=== PATIENT | male | born 1980 | race African-American/Black ===

== ENCOUNTER 2023-09-10 08:52 | Outpatient (OUT) | payer OTHER, SELFPAY ==
[2023-09-10 09:23] LABS: White Blood Count 6.5 10^3/uL (4.0-11.0)
[2023-09-10 09:24] LABS: Basophils Percent Auto 0.5 % (0.2-2.0); Eosinophils Absolute Auto 0.1 10^3/uL (0.0-0.7); Eosinophils Percent Auto 1.1 % (0.9-7.0); Hematocrit 45.1 % (42.0-54.0); Hemoglobin 15.7 g/dL (14.0-18.0); Immature Granulocytes Abs Auto 0.01 10^3/uL (0.00-0.03); Immature Granulocytes Pct Auto 0.2 % (0.0-0.5); Lymphocytes Absolute Auto 2.5 10^3/uL (1.2-3.8); Lymphocytes Percent Auto 38.9 % (20.5-60.0); Mean Corpuscular HGB Conc 34.8 g/dL (29.9-35.2); Mean Corpuscular Hemoglobin 27.2 pg (25.9-34.0); Mean Platelet Volume 11.1 fL (9.5-13.5); Monocytes Absolute Auto 0.8 10^3/uL (0.3-0.8); Monocytes Percent Auto 11.6 % (1.7-12.0); Neutrophils Absolute Auto 3.1 10^3/uL (1.4-6.5); Neutrophils Percent Auto 47.7 % (43.0-75.0); Platelet Count 206 10^3/uL (150-450); Red Blood Count 5.78 10^6/uL (4.70-6.10); Red Cell Distribution Width 16.5 % (11.0-15.0)
[2023-09-11 04:08] LABS: Testosterone 436 ng/dL (264-916)
== END 2023-09-10 08:53 | disposition home or self-care (01) ==
LOC: LAB 08:55
PROVIDERS: PCP Nurse Practitioner Family; Visit Provider Urology
DX: E29.1 Testicular hypofunction (principal)
CPT/HCPCS: 36415; 84403; 85025

== ENCOUNTER 2024-03-01 08:52 | Outpatient (OUT) | payer OTHER, SELFPAY ==
--- OUTSIDE RECORDS SUMMARY | 2024-03-01 08:56 | XMS_ITS | CCD ---
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 Name Role Phone ORION, DR HERNANDEZ Attending Unavailable SEARS, DR HERNANDEZ Consulting Unavailable SEARS, DR HERNANDEZ Admitting Unavailable DAXA MENDEZ Primary Care Unavailable FARHAT LEONARD Primary Care Physician [phone] CAROLEE IRELAND Attending Unavailable SEARS, Zhao Barr Attending Unavailable SEARS, Zhao Barr Attending Unavailable SEARS, Zhao Barr Attending Unavailable SEARS, Zhao Barr Attending Unavailable SEARS, Zhao Barr Attending Unavailable SEARS, Zhao Barr Attending Unavailable SEARS, Zhao Barr Attending Unavailable SEARS, Zhao Barr Attending Unavailable SEARS, Zhao Barr Attending Unavailable SEARS, Zhoa R Attending Unavailable SEARS, Zhao Barr Attending Unavailable SEARS, Zhao Barr Attending Unavailable Galea, Cindy Calderon Attending Unavailable DEMETRIS TINEO Attending Unavailable Allergies Allergy Classification Reported Allergen(s) Allergy Type Date of Onset Reaction(s) Facility Unclassified (1 source) No Known Medication Allergies; Translations: [No Known Medication Allergies] Propensity to adverse reactions (disorder) [facility] Repository Medications Current Medications Medication Drug Class(es) Dates Sig (Normalized) Sig (Original) amLODIPine 10 mg oral tablet (7 sources) Dihydropyridine Calcium Channel Ena Start: 04-14-2019 take 1 tablet by mouth once daily amLODIPine 10 mg Tab 10 mg = 1 tab(s), Oral, Daily Start Date: 04/14/19 Status: Ordered amLODIPine 10 mg / atorvastatin 20 mg oral tablet (18 sources) Dihydropyridine Calcium Channel Ena, HMG-CoA Reductase Inhibitor Start: 07-03-2022 take 1 tablet by mouth once daily amlodipine-ator vastatin 10 mg-20 mg oral tablet tab(s), Oral, Daily, Refill(s) 0 Start Date: 07/03/22 Status: Ordered tadalafil 20 mg oral tablet (20 sources) Phosphodiesterase 5 Inhibitor Start: 07-03-2022 Cialis 20 mg Tab Refills(s) 0 Start Date: 07/03/22 Status: Ordered Start: 01-16-2022 End: 05-16-2022 take 1 tablet by mouth every hour as needed Cialis 20 mg Tab 20 mg = 1 tab(s), Oral, As Directed, Take one tab prn one hour prior to sexual intercourse, X 30 day(s), # 30 tab(s), Refills(s) 3, Pharmacy: [facility] [id number], 190, cm, 01/16/22 15:25:00 EDT, Height/Length Dosing, 110, kg, 01/16/22 15:25:00 ED... Start Date: 01/16/22 Stop Date: 05/16/22 Status: Ordered Start: 01-03-2021 take 1 tablet by walter th every hour as needed Cialis 20 mg Tab 20 mg = 1 tab(s), Oral, As Directed, Take one tab prn one hour prior to sexual intercourse, # 30 tab(s), Refills(s) 3, Pharmacy: [facility] [id number], 190, cm, 01/03/21 15:37:00 EDT, Height/Length Dosing, 110, kg, 01/03/21 15:37:00 EDT, Weight Dosing Start Date: 01/03/21 Status: Ordered testosterone cypionate 200 mg/mL IM Yvonne (20 sources) Start: 11-14-2023 testosterone c ypionate 200 mg/mL IM Yvonne 350 mg, IntraMuscular, q4wk, # 10 mL, Refills(s) 3, Pharmacy: [id number], 190, cm, 09/24/23 11:25:00 EST, Height/Length Dosing, 105.2, kg, 09/24/23 11:25:00 EST, Weight Dosing Start Date: 11/14/23 Status: Ordered Start: 04-04-2023 testosterone c ypionate 200 mg/mL IM Yvonne 350 mg, IntraMuscular, q4wk, # 10 mL, Refills(s) 3, Pharmacy: [id number], 190, cm, 07/03/22 15:34:00 EST, Height/Length Dosing, 110.5, kg, 07/03/22 15:34:00 EST, Weight Dosing Start Date: 04/04/23 Status: Ordered Start: 09-25-2022 testosterone c ypionate 200 mg/mL IM Yvonne 350 mg, IntraMuscular, q4wk, # 10 mL, Refills(s) 3, Pharmacy: [facility] #[id number], 190, cm, 07/03/22 15:34:00 EST, Height/Length Dosing, 110.5, kg, 07/03/22 15:34:00 EST, Weight Dosing Start Date: 09/25/22 Status: Ordered Start: 05-04-2022 testosterone c ypionate 200 mg/mL IM Yvonne 300 mg, IntraMuscular, q4wk, # 10 mL, Refills(s) 3, Pharmacy: [facility] #[id number], 190, cm, 01/16/22 15:25:00 EDT, Height/Length Dosing, 110, kg, 01/16/22 15:25:00 EDT, Weight Dosing Start Date: 05/04/22 Status: Ordered Vitamin D (20 sources) Start: 01-03-2021 Vitamin D Inte rnational_Unit, Oral, Daily, Refills(s) 0 Start Date: 01/03/21 Status: Ordered Start: 12-06-2020 Vitamin D Inte rnational_Unit, Oral, Daily, Refills(s) 0 Start Date: 12/06/20 Status: Ordered Problems Problem Classification Problem Date Documented Da te Episodic/Chronic Alcohol-related disorders (20 sources) Alcoholism 03-15-2019 Chronic Bacterial infection; unspecified site (20 sources) Chlamydial infection 03-15-2019 Episodic Essential hypertension (20 sources) Hypertensive disorder 03-15-2019 Chronic Genitourinary symptoms and ill-defined conditions (20 sources) Nocturia 03-15-2019 Episodic Other endocrine disorders (4 sources) Testicular hypofunction; Translations: [TESTICULAR HYPOFUNCTION] Onset: 06-18-2021 Chronic Other endocrine disorders (20 sources) Testicular hypofunction; Translations: [Testicular hypofunction] Onset: 11-21-2021 Chronic Other endocrine disorders (20 sources) Male hypogonadism 03-15-2019 Chronic Other male genital disorders (20 sources) 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 Other male genital disorders (4 sources) Male erectile dysfunction, unspecified; Translations: [Erectile dysfunction] Onset: 07-03-2022 Chronic Other nutritional; endocrine; and metabolic disorders (20 sources) Body mass index 30+ - obesity 09-15-2020 Chronic Other screening for suspected conditions (not mental disorders or infectious disease) (1 source) Encounter for screening for malignant neoplasm of prostate; Translations: [Screening for malignant neoplasm done] Onset: 09-24-2023 Episodic Substance-related disorders (20 sources) Smoker 03-15-2019 Chronic Unclassified (5 sources) Patient encounter status 09-24-2023 Results Test Name Value Interpretation Reference Range Facil ity Ambulatory Visit Summaryon 0 12-18-2023 Ambulatory Visit Summary ANA LYONS :1980 Visit Date:12/18/2023 Ambulatory Visit Instructions Your Diagnosis Hypogonadism male Your Care Team Attending Physician - Cindy Adams Primary Care Physician - FARHAT LEONARD CNP This Is Your Medications List amlodipine-atorvasta tin (amlodipine-atorvast atin 10 mg-20 mg oral tablet) tadalafil (Cialis 20 mg Tab) testosterone (testosterone cypionate 200 mg/mL IM Yvonne) What to do next Scheduled Follow-Up Appointments Sunday. 2023 3:00 PM EDT With: Where: [facility] [address] [place] [address]- \.br\ Medications\.br\ What How Much When Instructions\.br\ Unchanged amlodipine-atorvast atin (amlodipine-atorvas tatin 10 mg-20 mg oral tablet) By Mouth Every day\.br\ Unchanged tadalafil (Cialis 20 mg Tab)\.br\ Unchanged testosterone (testosterone cypionate 200 mg/ mL IM Yvonne) 350 Milligram Intramuscular Every 4 weeks\.br\ Medications and Immunizations Administered\.br\ Given\.br\ Depo-Testosterone 200 mg/mL intramuscular solution, 400 mg, IntraMuscular. For: Hypogonadism male\.br\ Allergies\.br\ No Known Medication Allergies\.br\ Problems\.br\ Ongoing - Any problem that you are currently receiving treatment for.\.br\ Alcoholism\.br\ BMI 30.0-30.9,adult\.br \ Chlamydia\.br\ Erectile dysfunction\.br\ Hypertension\.br\ Hypogonadism male\.br\ Nocturia\.br\ Screening PSA (prostate specific antigen)\.br\ Smoker\.br\ Patient Survey\.br\ You may receive a survey via text or e-mail asking about your office visit. Please share your experience with us by completing your survey. We appreciate your feedback and thank you for choosing us for your care.\.br\ \.br\ [facility] Ambulatory Visit Summaryon 0 11-20-2023 Ambulatory Visit Summary ANA LYONS :1980 Visit Date:11/20/2023 Ambulatory Visit Instructions Your Diagnosis Hypogonadism male Your Care Team Attending Physician - ORION HERNANDEZ, Zhao Barr Primary Care Physician - FARHAT LEONARD CNP This Is Your Medications List amlodipine-atorvasta tin (amlodipine-atorvast atin 10 mg-20 mg oral tablet) tadalafil (Cialis 20 mg Tab) testosterone (testosterone cypionate 200 mg/mL IM Yvonne) What to do next Scheduled Follow-Up Appointments Sunday 3:00 PM EDT With: Where: [facility] [address] [place] [address]- \.br\ Medications\.br\ What How Much When Instructions\.br\ Unchanged amlodipine-atorvast atin (amlodipine-atorvas tatin 10 mg-20 mg oral tablet) By Mouth Every day\.br\ Unchanged tadalafil (Cialis 20 mg Tab)\.br\ Unchanged testosterone (testosterone cypionate 200 mg/ mL IM Yvonne) 350 Milligram Intramuscular Every 4 weeks\.br\ Medications and Immunizations Administered\.br\ Given\.br\ Depo-Testosterone 200 mg/mL intramuscular solution, 400 mg, IntraMuscular. For: Hypogonadism male\.br\ Allergies\.br\ No Known Medication Allergies\.br\ Problems\.br\ Ongoing - Any problem that you are currently receiving treatment for.\.br\ Alcoholism\.br\ BMI 30.0-30.9,adult\.br \ Chlamydia\.br\ Erectile dysfunction\.br\ Hypertension\.br\ Hypogonadism male\.br\ Nocturia\.br\ Screening PSA (prostate specific antigen)\.br\ Smoker\.br\ Patient Survey\.br\ You may receive a survey via text or e-mail asking about your office visit. Please share your experience with us by completing your survey. We appreciate your feedback and thank you for choosing us for your care.\.br\ \.br\ [facility] Ambulatory Visit Summaryon 0 10-22-2023 Ambulatory Visit Summary ANA LYONS :1980 Visit Date:10/22/2023 Ambulatory Visit Instructions Your Diagnosis Hypogonadism male Your Care Team Attending Physician - ORION HERNANDEZ, Zhao Barr Primary Care Physician - FARHAT LEONARD CNP This Is Your Medications List amlodipine-atorvasta tin (amlodipine-atorvast atin 10 mg-20 mg oral tablet) tadalafil (Cialis 20 mg Tab) testosterone (testosterone cypionate 200 mg/mL IM Yvonne) What to do next Scheduled Follow-Up Appointments Sunday 3:00 PM EDT Where: [facility] Ambulatory Visit Summaryon 0 09-24-2023 Ambulatory Visit Summary ANSLEY LYONSO Patel :1980 Visit Date:09/24/2023 Ambulatory Visit Instructions Your Diagnosis Hypogonadism male Erectile dysfunction Screening PSA (prostate specific antigen) Your Care Team Attending Physician - Zhao SEARS MD Primary Care Physician - FARHAT LEONARD CNP This Is Your Medications List testosterone (testosterone cypionate 200 mg/mL IM Yvonne) Contact prescribing physician if questions or concerns amlodipine-atorvasta tin (amlodipine-atorvast atin 10 mg-20 mg oral tablet) tadalafil (Cialis 20 mg Tab) Discharge Vitals Heart Rate (Peripheral) 71 Respiratory Rate 16 Blood Pressure 137/83 Height 190 cm Height 75 in Weight 105.2 kg Weight 231.44 lb BMI 29.14 What to do next Scheduled Follow-Up Appointments Sunday 10:30 AM EST Where: [facility] Ambulatory Visit Summary ANA LYONS :1980 Visit Date:09/24/2023 Ambulatory Visit Instructions Your Diagnosis Hypogonadism male Erectile dysfunction Screening PSA (prostate specific antigen) Your Care Team Attending Physician - Zhao SEARS MD Primary Care Physician - FARHAT LEONARD CNP This Is Your Medications List testosterone (testosterone cypionate 200 mg/mL IM Yvonne) Contact prescribing physician if questions or concerns amlodipine-atorvasta tin (amlodipine-atorvast atin 10 mg-20 mg oral tablet) tadalafil (Cialis 20 mg Tab) Discharge Vitals Heart Rate (Peripheral) 71 Respiratory Rate 16 Blood Pressure 137/83 Height 190 cm Height 75 in Weight 105.2 kg Weight 231.44 lb BMI 29.14 What to do next Scheduled Follow-Up Appointments Sunday 10:30 AM EST Where: [facility] Patient Educationon 09-24-19 24 Patient Education Urology Hypogonadism, Male Male hypogonadism is a condition of having a level of testosterone that is lower than normal. Testosterone is a chemical, or hormone, that is made mainly in the testicles. In boys, testosterone is responsible for the development of male characteristics during puberty. These include: ? Making the penis bigger. ? Growing and building the muscles. ? Growing facial hair. ? Deepening the voice. In adult men, testosterone is responsible for maintaining: ? An interest in sex and the ability to have sex. ? Muscle mass. ? Sperm production. ? Red blood cell production. ? Bone strength. Testosterone also gives men energy and a sense of well-being. Testosterone normally decreases as men age and the testicles make less testosterone. Testosterone levels can vary from man to man. Not all men will have signs and symptoms of low testosterone. Weight, alcohol use, medicines, and certain medical conditions can affect a man's testosterone level. What are the causes? This condition is caused by: ? A natural decrease in testosterone that occurs as a man grows older. This is the main cause of this condition. ? Use of medicines, such as antidepressants, steroids, and opioids. ? Diseases and conditions that affect the testicles or the making of testosterone. These include: ? Injury or damage to the testicles from trauma, cancer, cancer treatment, or infection. ? Diabetes. ? Sleep apnea. ? Genetic conditions that men are born with. ? Disease of the pituitary gland. This gland is in the brain. It produces hormones. ? Obesity. ? Metabolic syndrome. This is a group of diseases that affect blood pressure, blood sugar, cholesterol, and belly fat. ? HIV or AIDS. ? Alcohol abuse. ? Kidney failure. ? Other long-term or chronic diseases. What are the signs or symptoms? Common symptoms of this condition include: ? Loss of interest in sex (low sex drive). ? Inability to have or maintain an erection (erectile dysfunction). ? Feeling tired (fatigue). ? Mood changes, like irritability or depression. ? Loss of muscle and body hair. ? Infertility. ? Large breasts. ? Weight gain (obesity). How is this diagnosed? Your health care provider can diagnose hypogonadism based on: ? Your signs and symptoms. ? A physical exam to check your testosterone levels. This includes blood tests. Testosterone levels can change throughout the day. Levels are highest in the morning. You may need to have repeat blood tests before getting a diagnosis of hypogonadism. Depending on your medical history and test results, your health care provider may also do other tests to find the cause of low testosterone. How is this treated? This condition is treated with testosterone replacement therapy. Testosterone can be given by: ? Injection or through pellets inserted under the skin. ? Gels or patches placed on the skin or in the mouth. Testosterone therapy is not for everyone. It has risks and side effects. Your health care provider will consider your medical history, your risk for prostate cancer, your age, and your symptoms before putting you on testosterone replacement therapy. Follow these instructions at home: ? Take [id number] and prescription medicines only as told by your health care provider. ? Eat foods that are high in fiber, such as beans, whole grains, and fresh fruits and vegetables. Limit foods that are high in fat and processed sugars, such as fried or sweet foods. ? If you drink alcohol: ? Limit how much you have to 0?2 drinks a day. ? Know how much alcohol is in your drink. In the [place] one drink equals one 12 oz bottle of beer (355 mL), one 5 oz glass of wine (148 mL), or one 1? oz glass of hard liquor (44 mL). ? Return to your normal activities as told by your health care provider. Ask your health care provider what activities are safe for you. ? Keep all follow-up visits. This is important. Contact a health care provider if: ? You have any of the signs or symptoms of low testosterone. ? You have any side effects from testosterone therapy. Summary ? Male hypogonadism is a condition of having a level of testosterone that is lower than normal. ? The natural drop in testosterone production that occurs with age is the most common cause of this condition. ? Low testosterone can also be caused by many diseases and conditions that affect the testicles and the making of testosterone. ? This condition is treated with testosterone replacement therapy. ? There are risks and side effects of testosterone therapy. Your health care provider will consider your age, medical history, symptoms, and risks for prostate cancer before putting you on testosterone therapy. This information is not intended to replace advice given to you by your health care provider. Make sure you discuss any questions you have with your health care provider. Document Revised: 04/14/2021 Document (more content not included)... [facility] Urology Office/Clinic Noteon 09-24-2023 Urology Office/Clinic Note Chief Complaint hypogonadism and erectile dysfunction HPI Staff 6 month with CBC and testosterone level. Previous dx of hypogonadism and erectile dysfunction. Current testosterone level drawn 09/10/23 is 436 ([phone]) and previous drawn 03/26/23 was 251. Last testosterone injection 400mg every 4 weeks. Dysuria: no Incomplete bladder emptying: no Hematuria: no Frequency: no Urgency: no Nocturia: does not get up Stream: good steady stream Leaking: no Post void dripping: no Wearing pads/ Depends: no Urge incontinence: no Stress incontinence: no Incontinence without Sensory Awareness: no Abdominal pain: no Flank pain: no Sexual complaints: no History of Present Illness Tests reviewed: reviewed UA, CBC, T level I have reviewed the previous health record information and history for this patient from Dr. Sears. I have reviewed and verified the staff HPI to be accurate for this encounter. Review of Systems PHQ Score Initial Depression Screen Score: 0 SCORE ROS - Provider Constitutional: denies weight loss, denies hot flashes. Eyes: denies eye problems. Gastrointestinal: denies nausea, denies vomiting. Cardiovascular: denies chest pain or angina. Integumentary: no dryness Musculoskeletal: denies musculoskeletal symptoms. ENMT: denies otolaryngeal symptoms. Respiratory: no shortness of breath. Heme/Lymph: denies easy bleeding tendency, denies easy bruising tendency. Psychiatric: no confusion, no anxiety. Genitourinary: See HPI. Physical Exam Vitals & Measurements HR: 71(Peripheral) RR: 16 BP: 137/83 HT: 75 in HT: 190 cm WT: 105.2 kg WT: 231.44 lb BMI: 29.14 General Appearance: alert, no distress, well nourished, well developed male. Genitourinary: normal scrotum, normal testes, normal urethra, normal epididymis, normal vas deferens/spermatic cord. Flank Pain: none. Bladder: nonpalpable. Assessment/Plan 1. Hypogonadism male (E29.1: Testicular hypofunction) Testosterone Level (250 - 827) 01/06/22 - 418.7 06/27/22 - 213 03/26/23 - 251, HGB 16.8 09/10/23 - 436, HGB 15.7, HCT 45.1 Pt has been receiving Testosterone injections IM 400mg q4wks, increased from 350mg on 04/09/23. Discussed T and Hgb levels w/ pt, has increased from prior and is wnl. UA today negative for blood and infection. States he feels his energy level is good. No indication for dosage change at this time. -Cont Testosterone 400mg IM inj q4w. Pt to call for refills, uses [facility] in [place]. -F/u with T level in 6 mos 2. Erectile dysfunction (N52.9: Male erectile dysfunction, unspecified) Cialis 20mg PRN, works well when he takes it. 3. Screening PSA (prostate specific antigen) (Z12.5: Encounter for screening for malignant neoplasm of prostate) Denies ever getting PSA checked. No PSAs found on record. No known fam hx of prostate ca. Recommended pt to get PSA checked now. If level is low, will recheck level in 2 yrs. -PSA in 6 mos Follow-up With When Contact Information ORION HERNANDEZ, Zhao Barr, URL [facility] [address], [place] [address]- [phone] Additional Instructions: 6 mos w/ T level and PSA Patient Education Hypogonadism, Male I, Shaina Sheriff, personally scribed for Dr. Sears on 09/24/2023 12:32:26. . Documentation recorded by the scribe, Shaina Sheriff, accurately reflects the services(s) I performed and decisions made by me. Authenticated by Dr. Sears on 09/24/2023 12:34:04. Problem List/Past Medical History Ongoing Alcoholism BMI 30.0-30.9,adult Chlamydia Erectile dysfunction Hypertension Hypogonadism male Nocturia Screening PSA (prostate specific antigen) Smoker Historical No qualifying data Medications amlodipine-atorvasta tin 10 mg-20 mg oral tablet, Oral, Daily Cialis 20 mg Tab testosterone cypionate 200 mg/mL IM Yvonne, 350 mg, IntraMuscular, q4wk, 3 refills Allergies No Known Medication Allergies Social History Alcohol Current, 1-2 times per month, 04/14/2019 Past, 03/15/2019 Tobacco quit 8 years ago Tobacco Use:. Never Smokeless Tobacco Use:. Cigars, 04/09/2023 Family History Alcoholism: Father. Immunizations Vaccine Date Status Comments influenza virus vaccine, inactivated - Not Given Temporary contraindication - reschedule SARS-CoV-2 mRNA (tozinameran 5y-11y) vac 07/04/2021 Recorded SARS-CoV-2 (COVID-19) mRNA BNT-162b2 vax 06/08/2021 Recorded SARS-CoV-2 mRNA (tozinameran 5y-11y) vac 06/02/2021 Recorded SARS-CoV-2 (COVID-19) mRNA BNT-162b2 vax 05/18/2021 Recorded tetanus-diphtheria toxoids 10/27/2020 Recorded Td(adult) unspecified formulation 04/05/2000 Recorded measles/mumps/rubell a virus vaccine 03/16/1994 Recorded diphtheria/pertussis , acel/tetanus adult 12/18/1985 Recorded measles/mumps/rubell a virus vaccine 06/09/1982 Recorded Lab Results Ambulatory Point of Care Results Bilirubin Urine Dipstick: Negative (09/24/23 11:18:00) Blood Urine Dip (more content not included)... [facility] Comment on above: Result Comment: Elec tronically Signed By: Zhao SEARS MD\.br\Date and Time Signed: 09/24/23 12:34 EST\.br\Electronically Co-Signed By: Shaina Sheriff\.br\Date and Time Co-Signed: 09/24/23 12:33 EST Lab Reportson 09-13-2023 Lab Reports [id number] #1.00TIFF [facility] Lab Reports [id number]# 1.00TIFF [facility] Reminderson 09-11-2023 Reminders - From: Shaina Sheriff To: [facility] - Janays Orion; Sent: 04/09/2023 17:06:50 EDT Show up: 09/09/2023 16:06:00 EST Subject: Testosterone level and CBC Reminder Message Please Remember to:_have pt get CBC and testosterone level drawn before 10am. Patient went 09/10/23 to [facility] Ambulatory Visit Summaryon 0 08-28-2023 Ambulatory Visit Summary ANA LYONS :1980 Visit Date:08/28/2023 Ambulatory Visit Instructions Your Diagnosis Hypogonadism male Your Care Team Attending Physician - Zhao SEARS MD Primary Care Physician - FARHAT LEONARD CNP This Is Your Medications List amlodipine-atorvasta tin (amlodipine-atorvast atin 10 mg-20 mg oral tablet) tadalafil (Cialis 20 mg Tab) testosterone (testosterone cypionate 200 mg/mL IM Yvonne) What to do next Scheduled Follow-Up Appointments Sunday 10:45 AM EST With: Zhao SEARS MD Where: [facility] Ambulatory Visit Summaryon 0 05-07-2023 Ambulatory Visit Summary ANA LYONS :1980 Visit Date:05/07/2023 Ambulatory Visit Instructions Your Diagnosis Erectile dysfunction Your Care Team Attending Physician - Zhao SEARS MD Primary Care Physician - FARHAT LEONARD CNP This Is Your Medications List amlodipine-atorvasta tin (amlodipine-atorvast atin 10 mg-20 mg oral tablet) tadalafil (Cialis 20 mg Tab) testosterone (testosterone cypionate 200 mg/mL IM Yvonne) What to do next Scheduled Follow-Up Appointments Sunday 3:00 PM EDT With: Where: [facility] [address] [place] [address] [place] [address]- \.br\ Medications\.br\ What How Much When Instructions\.br\ Unchanged amlodipine-atorvast atin (amlodipine-atorvas tatin 10 mg-20 mg oral tablet) By Mouth Every day\.br\ Unchanged tadalafil (Cialis 20 mg Tab)\.br\ Unchanged testosterone (testosterone cypionate 200 mg/ mL IM Yvonne) 350 Milligram Intramuscular Every 4 weeks\.br\ Medications and Immunizations Administered\.br\ Given\.br\ Depo-Testosterone 200 mg/mL intramuscular solution, 400 mg, IntraMuscular. For: Erectile dysfunction\.br\ Allergies\.br\ No Known Medication Allergies\.br\ Problems\.br\ Ongoing - Any problem that you are currently receiving treatment for.\.br\ Alcoholism\.br\ BMI 30.0-30.9,adult\.br \ Chlamydia\.br\ Erectile dysfunction\.br\ Hypertension\.br\ Hypogonadism male\.br\ Nocturia\.br\ Smoker\.br\ \.br\ [facility] Ambulatory Visit Summaryon 0 04-09-2023 Ambulatory Visit Summary ANA LYONS :1980 Visit Date:04/09/2023 Ambulatory Visit Instructions Your Diagnosis Hypogonadism male, Hypogonadism male Erectile dysfunction Tests Performed Urnls Dip Stick Auto w/o Microscopy POC 56046 Your Care Team Attending Physician - Zhao SEARS MD Primary Care Physician - FARHAT LEONARD CNP This Is Your Medications List tadalafil (Cialis 20 mg Tab) testosterone (testosterone cypionate 200 mg/mL IM Yvonne) Contact prescribing physician if questions or concerns amlodipine-atorvasta tin (amlodipine-atorvast atin 10 mg-20 mg oral tablet) Discharge Vitals Heart Rate (Peripheral) 78 Blood Pressure 138/82 Height 190 cm Height 75 in Weight 105 kg Weight 231 lb BMI 29.09 What to do next Scheduled Follow-Up Appointments Sunday 3:00 PM EDT With: Where: [facility] Normal [address] [place] [address] [place] [address]- \.br\ You Need to Schedule the Following Appointments\.br\ Follow Up with ORION HERNANDEZ, JONATAN Cohen When: In 6 months\.br\ Comments:\.br\ Testosterone level and CBC\.br\ Where:\.br\ [facility] [address]\.br\ [place] [address]-\.br\ [phone]\.br\ Medications\.br\ What How Much When Instructions\.br\ Unchanged tadalafil (Cialis 20 mg Tab)\.br\ Unchanged testosterone (testosterone cypionate 200 mg/ mL IM Yvonne) 350 Milligram Intramuscular Every 4 weeks\.br\ Unchanged amlodipine-atorvast atin (amlodipine-atorvas tatin 10 mg-20 mg oral tablet) By Mouth Every day Contact prescribing physician if questions or concerns \.br\ Test Results\.br\ Urnls Dip Stick Auto w/o Microscopy POC 36644 (04/09/2023)\.br\ Bilirubin Urine Dipstick - 1+ Small\.br\ Blood Urine Dipstick - Negative\.br\ Glucose Urine Dipstick - Negative\.br\ Ketones Urine Dipstick - 1+ 15 mg/dl\.br\ Leukocytes Urine Dipstick - Negative\.br\ Nitrite Urine Dipstick - Negative\.br\ Protein Urine Dipstick - Negative\.br\ Specific [place] Urine Dipstick - >=1.030\.br\ Urine Appearance Urine Dipstick - Clear\.br\ Urine Color Urine Dipstick - Yellow\.br\ Urobilinogen Urine Dipstick - Normal 0.2-1 EU/dl\.br\ pH Urine Dipstick - 5.5\.br\ Medications and Immunizations Administered\.br\ Given\.br\ Depo-Testosterone 200 mg/mL intramuscular solution, 400 mg, IntraMuscular. For: Hypogonadism male\.br\ Allergies\.br\ No Known Medication Allergies\.br\ Problems\.br\ Ongoing - Any problem that you are currently receiving treatment for.\.br\ Alcoholism\.br\ BMI 30.0-30.9,adult\.br \ Chlamydia\.br\ Erectile dysfunction\.br\ Hypertension\.br\ Hypogonadism male\.br\ Nocturia\.br\ Smoker\.br\ Education Materials\.br\ Hypogonadism, Male\.br\ \.br\ Male hypogonadism is a condition of having a level of testosterone that is lower than normal. Testosterone is a chemical, or hormone, that is made mainly in the testicles.\.br\ In boys, testosterone is responsible for the development of male characteristics during puberty. These include:\.br\ ? \.br\ Making the penis bigger.\.br\ ? \.br\ Growing and building the muscles.\.br\ ? \.br\ Growing facial hair.\.br\ ? \.br\ Deepening the voice.\.br\ In adult men, testosterone is responsible for maintaining:\.br\ ? \.br\ An interest in sex and the ability to have sex.\.br\ ? \.br\ Muscle mass.\.br\ ? \.br\ Sperm production.\.br\ ? \.br\ Red blood cell production.\.br\ ? \.br\ Bone strength.\.br\ Testosterone also gives men energy and a sense of well-being.\.br\ Testosterone normally decreases as men age and the testicles make less testosterone. Testosterone levels can vary from man to man. Not all men will have signs and symptoms of low testosterone. Weight, alcohol use, medicines, and certain medical conditions can affect a man's testosterone level.\.br\ What are the causes?\.br\ This condition is caused by:\.br\ ? \.br\ A natural decrease in testosterone that occurs as a man grows older. This is the main cause of this condition.\.br\ ? \.br\ Use of medicines, such as antidepressants, steroids, and opioids.\.br\ ? \.br\ Diseases and conditions that affect the testicles or the making of testosterone. These include:\.br\ ? \.br\ Injury or damage to the testicles from trauma, cancer, cancer treatment, or infection.\.br\ ? \.br\ Diabetes.\.br\ ? \.br\ Sleep apnea.\.br\ ? \.br\ Genetic conditions that men are born with.\.br\ ? \.br\ Disease of the pituitary gland. This gland is in the brain. It produces hormones.\.br\ ? \.br\ Obesity.\.br\ ? \.br\ Metabolic syndrome. This is a group of diseases that affect blood pressure, blood sugar, cholesterol, and belly fat.\.br\ ? \.br\ HIV or AIDS.\.br\ ? \.br\ Alcohol abuse.\.br\ ? \.br\ Kidney failure.\.br\ ? \.br\ Other long-term or chronic diseases.\.br\ What are the signs or symptoms?\.br\ Common symptoms of this condition include:\.br\ ? \.br\ Loss of interest in sex (low sex drive).\.br\ ? \.br\ Inability to have or maintain an erection (erectile dysfunction).\.br\ ? \.br\ Feeling tired (fatigue).\.br\ ? \.br\ Mood changes, like irritability or depression.\.br\ ? \.br\ Loss of muscle and body hair.\.br\ ? \.br\ Infertility.\.br\ ? \.br\ Large breasts.\.br\ ? \.br\ Weight gain (obesity).\.br\ How is this diagnosed?\.br\ Your health care provider can diagnose hypogonadism based on:\.br\ ? \.br\ Your signs and symptoms.\.br\ ? \.br\ A physical exam to check your testosterone levels. This includes blood tests. Testosterone levels can change throughout the day. Levels are highest in the morning. You may need to have repeat blood tests before getting a diagnosis of hypogonadism.\.br\ Depending on your medical history and test results, your health care provider may also do other tests to find the cause of low testosterone.\.br\ How is this treated?\.br\ This condition is treated with testosterone replacement therapy. Testosterone can be given by:\.br\ ? \.br\ Injection or through pellets inserted under the skin.\.br\ ? \.br\ Gels or patches placed on the skin or in the mouth.\.br\ Testosterone therapy is not for everyone. It has risks and side effects. Your health care provider will consider your medical history, your risk for prostate cancer, your age, and your symptoms before putting you on testosterone replacement therapy.\.br\ Follow these instructions at home:\.br\ ? \.br\ Take szck-bjp-exigpos and prescription medicines only as told by your health care provider.\.br\ ? \.br\ Eat foods that are high in fiber, such as beans, whole grains, and fresh fruits and vegetables. Limit foods that are high in fat and processed sugars, such as fried or sweet foods.\.br\ ? \.br\ If you drink alcohol:\.br\ ? \.br\ Limit how much you have to 0?2 drinks a day.\.br\ ? \.br\ Know how much alcohol is in your drink. In the [place] one drink equals one 12 oz bottle of beer (355 mL), one 5 oz glass of wine (148 mL), or one 1? oz glass of hard liquor (44 mL).\.br\ ? \.br\ Return to your normal activities as told by your health care provider. Ask your health care provider what activities are safe for you.\.br\ ? \.br\ Keep all follow-up visits. This is important.\.br\ Contact a health care provider if:\.br\ ? \.br\ You have any of the signs or symptoms of low testosterone.\.br\ ? \.br\ You have any side effects from testosterone therapy.\.br\ Summary\.br\ ? \.br\ Male hypogonadism is a condition of having a level of testosterone that is lower than normal.\.br\ ? \.br\ The natural drop in testosterone production that occurs with age is the most common cause of this condition.\.br\ ? \.br\ Low testosterone can also be caused by many diseases and conditions that affect the testicles and the making of testosterone.\.br\ ? \.br\ This condition is treated with testosterone replacement therapy.\.br\ ? \.br\ There are risks and side effects of testosterone therapy. Your health care provider will consider your age, medical history, symptoms, and risks for prostate cancer before putting you on testosterone therapy.\.br\ This information is not intended to replace advice given to you by your h [facility] Patient Educationon 04-09-20 Patient Education Urology Hypogonadism, Male Male hypogonadism is a condition of having a level of testosterone that is lower than normal. Testosterone is a chemical, or hormone, that is made mainly in the testicles. In boys, testosterone is responsible for the development of male characteristics during puberty. These include: ? Making the penis bigger. ? Growing and building the muscles. ? Growing facial hair. ? Deepening the voice. In adult men, testosterone is responsible for maintaining: ? An interest in sex and the ability to have sex. ? Muscle mass. ? Sperm production. ? Red blood cell production. ? Bone strength. Testosterone also gives men energy and a sense of well-being. Testosterone normally decreases as men age and the testicles make less testosterone. Testosterone levels can vary from man to man. Not all men will have signs and symptoms of low testosterone. Weight, alcohol use, medicines, and certain medical conditions can affect a man's testosterone level. What are the causes? This condition is caused by: ? A natural decrease in testosterone that occurs as a man grows older. This is the main cause of this condition. ? Use of medicines, such as antidepressants, steroids, and opioids. ? Diseases and conditions that affect the testicles or the making of testosterone. These include: ? Injury or damage to the testicles from trauma, cancer, cancer treatment, or infection. ? Diabetes. ? Sleep apnea. ? Genetic conditions that men are born with. ? Disease of the pituitary gland. This gland is in the brain. It produces hormones. ? Obesity. ? Metabolic syndrome. This is a group of diseases that affect blood pressure, blood sugar, cholesterol, and belly fat. ? HIV or AIDS. ? Alcohol abuse. ? Kidney failure. ? Other long-term or chronic diseases. What are the signs or symptoms? Common symptoms of this condition include: ? Loss of interest in sex (low sex drive). ? Inability to have or maintain an erection (erectile dysfunction). ? Feeling tired (fatigue). ? Mood changes, like irritability or depression. ? Loss of muscle and body hair. ? Infertility. ? Large breasts. ? Weight gain (obesity). How is this diagnosed? Your health care provider can diagnose hypogonadism based on: ? Your signs and symptoms. ? A physical exam to check your testosterone levels. This includes blood tests. Testosterone levels can change throughout the day. Levels are highest in the morning. You may need to have repeat blood tests before getting a diagnosis of hypogonadism. Depending on your medical history and test results, your health care provider may also do other tests to find the cause of low testosterone. How is this treated? This condition is treated with testosterone replacement therapy. Testosterone can be given by: ? Injection or through pellets inserted under the skin. ? Gels or patches placed on the skin or in the mouth. Testosterone therapy is not for everyone. It has risks and side effects. Your health care provider will consider your medical history, your risk for prostate cancer, your age, and your symptoms before putting you on testosterone replacement therapy. Follow these instructions at home: ? Take [id number]-[id number] and prescription medicines only as told by your health care provider. ? Eat foods that are high in fiber, such as beans, whole grains, and fresh fruits and vegetables. Limit foods that are high in fat and processed sugars, such as fried or sweet foods. ? If you drink alcohol: ? Limit how much you have to 0?2 drinks a day. ? Know how much alcohol is in your drink. In the [place] one drink equals one 12 oz bottle of beer (355 mL), one 5 oz glass of wine (148 mL), or one 1? oz glass of hard liquor (44 mL). ? Return to your normal activities as told by your health care provider. Ask your health care provider what activities are safe for you. ? Keep all follow-up visits. This is important. Contact a health care provider if: ? You have any of the signs or symptoms of low testosterone. ? You have any side effects from testosterone therapy. Summary ? Male hypogonadism is a condition of having a level of testosterone that is lower than normal. ? The natural drop in testosterone production that occurs with age is the most common cause of this condition. ? Low testosterone can also be caused by many diseases and conditions that affect the testicles and the making of testosterone. ? This condition is treated with testosterone replacement therapy. ? There are risks and side effects of testosterone therapy. Your health care provider will consider your age, medical history, symptoms, and risks for prostate cancer before putting you on testosterone therapy. This information is not intended to replace advice given to you by your health care provider. Make sure you discuss any questions you have with your health care provider. Document Revised: 04/14/2021 Document (more content not included)... [facility] Urology Office/Clinic Noteon 04-09-2023 Urology Office/Clinic Note Chief Complaint 6 month follow up with T levels HPI Staff 6 months follow up with T level due to Hypogonadism and ED. Cialis 20 mg PRN Test inj. 350 mg q4wk. No issues with this He states there is no urinary issues Tolerates his inj. with no problems Cialis works well History of Present Illness Tests reviewed: reviewed UA I have reviewed the previous health record information and history for this patient from Dr. Sears. I have reviewed and verified the staff HPI to be accurate for this encounter. There have been no associated fever, chills, flank pain, or blood in the urine. Denies any urinary infections since last encounter. Review of Systems PHQ Score Initial Depression Screen Score: 0 ROS - Provider Constitutional: denies weight loss, denies hot flashes. Eyes: denies eye problems. Gastrointestinal: denies nausea, denies vomiting. Cardiovascular: denies chest pain or angina. Integumentary: no dryness Musculoskeletal: denies musculoskeletal symptoms. ENMT: denies otolaryngeal symptoms. Respiratory: no shortness of breath. Heme/Lymph: denies easy bleeding tendency, denies easy bruising tendency. Psychiatric: no confusion, no anxiety. Genitourinary: See HPI. Physical Exam Vitals & Measurements HR: 78(Peripheral) BP: 138/82 HT: 75 in HT: 190 cm WT: 105 kg WT: 231 lb BMI: 29.09 General Appearance: alert, no distress, well nourished, well developed male. Genitourinary: normal scrotum, normal testes, normal urethra, normal epididymis, normal vas deferens/spermatic cord. Flank Pain: none. Bladder: nonpalpable. Assessment/Plan 1. Hypogonadism male (E29.1: Testicular hypofunction) Testosterone Level (250 - 827) 01/06/22 - 418.7 06/27/22 - 213 03/26/23 - 251 Pt has been receiving Testosterone injections 350mg q4wks. Will increase dosage to 400mg today. CBC from 03/26/23 showed 16.8 hemoglobin (13.2 - 17.1). Discussed pt is to donate blood. Follow up with T level before 10am and CBC in 6 months or sooner if needed. Pt understands and agrees with plan. 2. Erectile dysfunction (N52.9: Male erectile dysfunction, unspecified) Pt to continues taking Cialis 20mg PRN [1]he is doing very well. Follow-up With When Contact Information ORION HERNANDEZ, Zhao Barr, URL In 6 months [facility] [address], [place] [phone] Additional Instructions: Testosterone level and CBC Patient Education Hypogonadism, Male I, Shaina Sheriff, personally scribed for Dr. Sears on 04/09/2023 16:26:24. . Documentation recorded by the scribe, Shaina Sheriff, accurately reflects the services(s) I performed and decisions made by me. Authenticated by Dr. Sears on 04/09/2023 16:28:04. Problem List/Past Medical History Ongoing Alcoholism BMI 30.0-30.9,adult Chlamydia Erectile dysfunction Hypertension Hypogonadism male Nocturia Smoker Historical No qualifying data Medications amlodipine-atorvasta tin 10 mg-20 mg oral tablet, Oral, Daily Cialis 20 mg Tab Depo-Testosterone 200 mg/mL intramuscular solution, 400 mg= 2 mL, IntraMuscular, Once testosterone cypionate 200 mg/mL IM Yvonne, 350 mg, IntraMuscular, q4wk, 3 refills Allergies No Known Medication Allergies Social History Alcohol Current, 1-2 times per month, 04/14/2019 Past, 03/15/2019 Tobacco quit 8 years ago Tobacco Use:. Never Smokeless Tobacco Use:. Cigars, 04/09/2023 Family History Alcoholism: Father. Immunizations Vaccine Date Status Comments influenza virus vaccine, inactivated - Not Given Temporary contraindication - reschedule SARS-CoV-2 mRNA (ardhan 5y-11y) vac 07/04/2021 Recorded SARS-CoV-2 (COVID-19) mRNA BNT-162b2 vax 06/08/2021 Recorded SARS-CoV-2 mRNA (tozinameran 5y-11y) vac 06/02/2021 Recorded SARS-CoV-2 (COVID-19) mRNA BNT-162b2 vax 05/18/2021 Recorded tetanus-diphtheria toxoids 10/27/2020 Recorded Td(adult) unspecified formulation 04/05/2000 Recorded measles/mumps/rubell a virus vaccine 03/16/1994 Recorded diphtheria/pertussis , acel/tetanus adult 12/18/1985 Recorded measles/mumps/rubell a virus vaccine 06/09/1982 Recorded Lab Results Ambulatory Point of Care Results Bilirubin Urine Dipstick: 1+ Small (04/09/23 15:37:00) Blood Urine Dipstick: Negative (04/09/23 15:37:00) Glucose Urine Dipstick: Negative (04/09/23 15:37:00) Ketones Urine Dipstick: 1+ 15 mg/dl (04/09/23 15:37:00) Leukocytes Urine Dipstick: Negative (04/09/23 15:37:00) Nitrite Urine Dipstick: Negative (04/09/23 15:37:00) Protein Urine Dipstick: Negative (04/09/23 15:37:00) Specific [place] Urine Dipstick: >=1.030 (04/09/23 15:37:00) Urine Appearance Urine Dipstick: Clear (04/09/23 15:37:00) Urine Color Urine Dipstick: Yellow (04/09/23 15:37:00) Urobilinogen Urine Dipstick: Normal 0.2-1 EU/dl (04/09/23 15:37:00) pH Urine Dipstick: 5.5 (04/09/23 15:37:00) [1] URO-6 month f/u; Zhao SEARS MD 07/03/2022 16:17 EST Normal [facility] Comment on above: Result Comment: Elec tronically Signed By: Zhao SEARS MD\.br\Date and Time Signed: 04/09/23 16:28 EDT\.br\Electronically Co-Signed By: Shaina Sheriff\samuel\Date and Time Co-Signed: 04/09/23 16:26 EDT Lab Reportson 03-27-2023 Lab Reports [id number] #1.00CD:127 [facility] Ambulatory Visit Summaryon 0 03-12-2023 Ambulatory Visit Summary ANA LYONS :1980 Visit Date:03/12/2023 Ambulatory Visit Instructions Your Diagnosis Hypogonadism male Your Care Team Attending Physician - ORION HERNANDEZ, Zhao Barr Primary Care Physician - FARHAT LEONARD CNP This Is Your Medications List amlodipine-atorvasta tin (amlodipine-atorvast atin 10 mg-20 mg oral tablet) ergocalciferol (Vitamin D) tadalafil (Cialis 20 mg Tab) testosterone (testosterone cypionate 200 mg/mL IM Yvonne) What to do next Scheduled Follow-Up Appointments Sunday 3:45 PM EDT With: ORION HERNANDEZ, Zhao Barr Where: [facility] Nurse Consultation Noteon Nurse Consultation Note Reason for Visit 4wk Testosterone Injection Assessment/Plan 1. Hypogonadism male (E29.1: Testicular hypofunction) 350mg/1.75ml Testosterone IM INj given in Lt Deltoid. Pt tolerated well. Pt to return in 4 weeks for next injection. Pt will see Dr Sears in March with Testosterone & CBC labs. Medications amlodipine-atorvasta tin 10 mg-20 mg oral tablet, Oral, Daily Cialis 20 mg Tab testosterone cypionate 200 mg/mL IM Yvonne, 350 mg, IntraMuscular, q4wk, 3 refills Vitamin D, Oral, Daily Allergies No Known Medication Allergies Immunizations Vaccine Date Status Comments influenza virus vaccine, inactivated - Not Given Temporary contraindication - reschedule SARS-CoV-2 mRNA (tozinameran 5y-11y) vac 07/04/2021 Recorded SARS-CoV-2 mRNA (tozinameran 5y-11y) vac 06/02/2021 Recorded Normal [facility] Testosteroneon 01-06-2022 TESTOS 418.70 ng/dL Normal 249.00-836.00 [facility] [employer] Comment on above: Performed By: #### T EST #### [facility] [address], [place] [id number] Complete Blood Count with Au to Diffon 12-23-2021 Basophils (Bld) [#/Vol] 0.02 10*3/uL Normal 0.00-0.20 [facility] [employer] Comment on above: Performed By: #### F MITCH RONDON, CBCAD #### [facility] [address], [place] [id number] Basophils/100 WBC (Bld) 0.5 % Normal [facility] [employer] Comment on above: Performed By: #### F MITCH RONDON, CBCAD #### [facility] [address], [place] [id number] Eosinophils (Bld) [#/Vol] 0.05 10*3/uL Normal 0.02-0.50 [facility] [employer] Comment on above: Performed By: #### F MITCH RONDON, CBCAD #### [facility] [address], [place] [id number] Eosinophils/100 WBC (Bld) 1.3 % Normal [facility] [employer] Comment on above: Performed By: #### F MITCH RONDON, CBCAD #### [facility] [address], [place] [id number] Erythrocyte distribution width (RBC) [Ratio] 15.3 % High 11.0-15.0 [facility] [employer] Comment on above: Performed By: #### F MITCH RONDON, CBCAD #### [facility] [address], [place] [id number] Hematocrit (Bld) [Volume fraction] 43.6 % Normal 38.5-50.0 [facility] [employer] Comment on above: Performed By: #### F MITCH RONDON, CBCAD #### [facility] [address], [place] [id number] Hemoglobin (Bld) [Mass/Vol] 15.3 g/dL Normal 13.0-17.1 [facility] [employer] Comment on above: Performed By: #### F MITCH RONDON, CBCAD #### [facility] [address], [place] [id number] Lymphocytes (Bld) [#/Vol] 1.9 10*3/uL Normal 0.9-3.9 [facility] Specialist Comment on above: Performed By: #### F MITCH RONDON, CBCAD #### [facility] [address], [place] [id number] Lymphocytes/100 WBC (Bld) 47.2 % Normal [facility] Specialist Comment on above: Performed By: #### F MITCH RONDON, CBCAD #### [facility] [address], [place] [id number] MCH (RBC) [Entitic mass] 27.1 pg Normal 27.0-33.0 [facility] Specialist Comment on above: Performed By: #### F MITCH RONDON, CBCAD #### [facility] [address], [place] [id number] MCHC (RBC) [Mass/Vol] 35.1 g/dL Normal 32.0-36.0 [facility] Specialist Comment on above: Performed By: #### F MITCH RONDON, CBCAD #### [facility] [address], [place] [id number] MCV (RBC) [Entitic vol] 77 fL Low 80-100 [facility] Specialist Comment on above: Performed By: #### F MITCH RONDON, CBCAD #### [facility] [address], [place] [id number] Monocytes (Bld) [#/Vol] 0.3 10*3/uL Normal 0.2-0.9 [facility] Specialist Comment on above: Performed By: #### F MITCH RONDON, CBCAD #### [facility] [address], [place] [id number] Monocytes/100 WBC (Bld) 8.6 % Normal [facility] Specialist Comment on above: Performed By: #### F MITCH RONDON, CBCAD #### [facility] [address], [place] [id number] Neutrophils (Bld) [#/Vol] 1.7 10*3/uL Normal 1.5-7.8 [facility] [employer] Trade Manager Comment on above: Performed By: #### F MITCH RONDON, CBCAD #### [facility] [address], [place] [id number] Neutrophils/100 WBC (Bld) 42.4 % Normal [facility] Comment on above: Performed By: #### F ALCON FE Prof, CBCAD #### [facility] [address], [place] [id number] Platelet mean volume (Bld) [Entitic vol] 11.80 fL Normal 7.50-12.[address] [facility] Comment on above: Performed By: #### F ALCON FE , CBCAD #### [facility] [address] [facility] [place] [id number] Platelets (Bld) [#/Vol] 217 10*3/uL Normal 140-[address] [facility] Comment on above: Performed By: #### F MITCH RONDON, CBCAD #### [facility] [address], [place] [id number] RBC (Bld) [#/Vol] 5.64 10*6/uL Normal 4.20-5.80 [facility] Comment on above: Performed By: #### F MITCH RONDON, CBCAD #### [facility] [address], [place] [id number] RDW-SD 41.9 fL Normal 37.0-50.[address] [facility] Comment on above: Performed By: #### F MITCH RONDON, CBCAD #### [facility] [address], [place] [id number] WBC (Bld) [#/Vol] 3.9 10*3/uL Normal 3.8-11.0 [facility] Comment on above: Performed By: #### F ALCON FE Prof, CBCAD #### [facility] [address], [place] [id number] Ferritinon 12-23-2021 FERR 204.8 ng/mL Normal 30.0-400.[address] [facility] Comment on above: Performed By: #### F ALCON FE Prof, CBCAD #### [facility] [address] [facility] [place] [id number] Iron Profileon 12-23-2021 %FESAT 22 % Normal 15-60 [facility] [employer] Comment on above: Performed By: #### F MITCH RONDON Prof, CBCAD #### [facility] [address], [place] [id number] FE 65 ug/dL Normal 50-180 [facility] [employer] Comment on above: Result Comment: Refe rence range change 07/13/2017. Prior reference range F 37-145 ug/dL, M 59-158 ug/dL. Performed By: #### F MITCH RONDON Prof, CBCAD #### [facility] [address], [place] [id number] TIBC 292 ug/dL Normal 250-425 [facility] [employer] Comment on above: Performed By: #### F MITCH RONDON, CBCAD #### [facility] [address], [place] [id number] UIBC 227 ug/dL Normal 112-347 [facility] [employer] Comment on above: Performed By: #### F MITCH RONDON, CBCAD #### [facility] [address], [place] [id number] Complete Blood Count with Au to Diffon 11-22-2021 Erythrocyte distribution width (RBC) [Ratio] 14.9 % Normal 11.0-15.0 [facility] [employer] Comment on above: Performed By: #### L NANI LEMUS MDIFF, VITD, CBCAD #### [facility] [address], [place] [id number] Hematocrit (Bld) [Volume fraction] 43.7 % Normal 38.5-50.0 [facility] [employer] Comment on above: Performed By: #### L NANI LEMUS MDIFF, VITD, CBCAD #### [facility] [address], [place] [id number] Hemoglobin (Bld) [Mass/Vol] 15.1 g/dL Normal 13.0-17.1 [facility] [employer] Comment on above: Performed By: #### L NANI LEMUS MDIFF, VITD, CBCAD #### [facility] [address], [place] [id number] MCH (RBC) [Entitic mass] 26.6 pg Low 27.0-33.0 [facility] [employer] Comment on above: Performed By: #### L IPD, CMP, MDIFF, VITD, CBCAD #### [facility] [address], [place] [id number] MCHC (RBC) [Mass/Vol] 34.6 g/dL Normal 32.0-36.0 [facility] Specialist Comment on above: Performed By: #### L IPD, CMP, MDIFF, VITD, CBCAD #### [facility] [address], [place] [id number] MCV (RBC) [Entitic vol] 77 fL Low 80-100 [facility] Specialist Comment on above: Performed By: #### L IPD, CMP, MDIFF, VITD, CBCAD #### [facility] [address], [place] [id number] Platelet mean volume (Bld) [Entitic vol] 11.30 fL Normal 7.50-12.50 [facility] Comment on above: Performed By: #### L IPD, CMP, MDIFF, VITD, CBCAD #### [facility] [address], [place] [id number] Platelets (Bld) [#/Vol] 173 10*3/uL Normal 140-400 [facility] Comment on above: Performed By: #### L IPD, CMP, MDIFF, VITD, CBCAD #### [facility] [address], [place] [id number] RBC (Bld) [#/Vol] 5.67 10*6/uL Normal 4.20-5.80 [facility] Specialist Comment on above: Performed By: #### L IPD, CMP, MDIFF, VITD, CBCAD #### [facility] [address], [place] [id number] RDW-SD 40.8 fL Normal 37.0-50.0 [facility] Specialist Comment on above: Performed By: #### L IPD, CMP, MDIFF, VITD, CBCAD #### [facility] [address], [place] [id number] REFLEX Manual Differential Normal [facility] Comment on above: Performed By: #### L IPD, CMP, MDIFF, VITD, CBCAD #### [facility] [address], [place] [id number] WBC (Bld) [#/Vol] 3.5 10*3/uL Low 3.8-11.0 [facility] [facility] [place] [employer] Comment on above: Performed By: #### L MARIAH, NANI, SIMONE, VITD, CBCAD #### [facility] [address], [place] [id number] Comprehensive Metabolic Pane kei 11-22-2021 Albumin [Mass/Vol] 5.0 g/dL Normal 3.6-5.1 [place] [facility] [place] [employer] Comment on above: Performed By: #### L MARIAH, NANI, MDSHIVA, VITD, CBCAD #### [facility] [address], [place] [id number] Albumin/Globulin [Mass ratio] 2.3 {ratio} Normal 1.0-2.5 [facility] [employer] Comment on above: Performed By: #### L MARIAH, NANI, SIMONE, VITD, CBCAD #### [facility] [address], [place] [id number] ALP [Catalytic activity/Vol] 46 U/L Normal 40-129 [facility] [employer] Comment on above: Performed By: #### L MARIAH, NANI, SIMONE, VITD, CBCAD #### [facility] [address], [place] [id number] ALT [Catalytic activity/Vol] 24 U/L Normal 9-46 [facility] [employer] Comment on above: Result Comment: 07/27 Female reference range changed. Performed By: #### L MARIAH, NANI, SIMONE, VITD, CBCAD #### [facility] [address], [place] [id number] Anion gap [Moles/Vol] 18 mmol/L Normal 12-20 [facility] [employer] Comment on above: Result Comment: Effe ctive 09/01/2019 reference range changed. Performed By: #### L NANI LEMUS, SIMONE, VITD, CBCAD #### [facility] [address], [place] [id number] AST [Catalytic activity/Vol] 20 U/L Normal 10-40 [facility] [employer] Comment on above: Performed By: #### L IPD, CMP, MDIFF, VITD, CBCAD #### [facility] [address], [place] [id number] Bilirubin [Mass/Vol] 0.62 mg/dL Normal 0.30-1.[address] [facility] Comment on above: Performed By: #### L IPD, CMP, MDIFF, VITD, CBCAD #### [facility] [address], [place] [id number] BUN/CREA 17 Ratio Normal 6-[address] [facility] Comment on above: Performed By: #### L IPD, CMP, MDIFF, VITD, CBCAD #### [facility] [address], [place] [id number] Calcium [Mass/Vol] 10.2 mg/dL Normal 8.6-10.2 [facility] Comment on above: Performed By: #### L IPD, CMP, MDIFF, VITD, CBCAD #### [facility] [address], [place] [id number] Chloride [Moles/Vol] 101 mmol/L Normal 98-107 [facility] Specialist Comment on above: Performed By: #### L IPD, CMP, MDIFF, VITD, CBCAD #### [facility] [address], [place] [id number] CO2 [Moles/Vol] 24 mmol/L Normal 20-31 [facility] Specialist Comment on above: Performed By: #### L IPD, CMP, MDIFF, VITD, CBCAD #### [facility] [address], [place] [id number] Creatinine [Mass/Vol] 1.0 mg/dL Normal 0.7-1.[address] [facility] Comment on above: Performed By: #### L IPD, CMP, MDIFF, VITD, CBCAD #### [facility] [address], [place] [id number] eGFRAA 96 mL/min/1.73m2 Normal >60 [facility] Specialist Comment on above: Performed By: #### L IPD, CMP, MDIFF, VITD, CBCAD #### [facility] [address], [place] [id number] eGFRNAA 79 mL/min/1.73m2 Normal >60 [facility] International Trade Manager Comment on above: Performed By: #### L IPD, CMP, MDIFF, VITD, CBCAD #### [facility] [address], [place] [id number] Globulin (S) [Mass/Vol] 2.2 g/dL Normal 1.9-3.7 [facility] International Trade Manager Comment on above: Performed By: #### L IPD, CMP, MDIFF, VITD, CBCAD #### [facility] [address], [place] [id number] Glucose [Mass/Vol] 80 mg/dL Normal 65-99 [facility] International Trade Manager Comment on above: Result Comment: For FASTING Glucose --- ADA reference ranges: Normal 65-99 mg/dl Prediabetes 100-125 Diabetes >/= 126 Performed By: #### L IPD, CMP, MDIFF, VITD, CBCAD #### [facility] [address], [place] [id number] Potassium [Moles/Vol] 4.3 mmol/L Normal 3.5-5.5 [facility] International Trade Manager Comment on above: Performed By: #### L IPD, CMP, MDIFF, VITD, CBCAD #### [facility] [address], [place] [id number] Protein [Mass/Vol] 7.2 g/dL Normal 6.1-8.1 [facility] International Trade Manager Comment on above: Performed By: #### L IPD, CMP, MDIFF, VITD, CBCAD #### [facility] [address], [place] [id number] Sodium [Moles/Vol] 139 mmol/L Normal 135-146 [facility] International Trade Manager Comment on above: Performed By: #### L IPD, CMP, MDIFF, VITD, CBCAD #### [facility] [address], [place] [id number] Urea nitrogen [Mass/Vol] 17 mg/dL Normal 7-25 [facility] International Trade Manager Comment on above: Performed By: #### L IPD, CMP, MDIFF, VITD, CBCAD #### [facility] [address], [place] [id number] Lipid Panelon 11-22-2021 Cholesterol [Mass/Vol] 186 mg/dL Normal 125-200 [facility] Specialist Comment on above: Result Comment: Low risk < 200mg/dL Borderline risk 201-239 mg/dl High risk > or equal to 240 Performed By: #### L MARIAH, CMP, MDIFF, VITD, CBCAD #### [facility] [address] [place], [place] [id number] Cholesterol in HDL [Mass/Vol] 44 mg/dL Normal >40 [facility] Specialist Comment on above: Result Comment: High Cardiovascular Risk HDL <40 mg/dL Low Cardiovascular Risk HDL > or equal to 60 mg/dl Performed By: #### L IPD, CMP, MDIFF, VITD, CBCAD #### [facility] [address], [place] [id number] Cholesterol in LDL [Mass/Vol] 130 mg/dL Normal [facility] Specialist Comment on above: Result Comment: LDL ATP III CLASSIFICATION LDL less than 100 mg/dl Optimal LDL 100-129 mg/dl Near or above optimal LDL 130-159 Borderline high LDL 160-189 High LDL greater than 189 mg/dl Very High Performed By: #### L MARIAH, CMP, MDIFF, VITD, CBCAD #### [facility] [address] [facility] [place] [id number] Cholesterol in VLDL [Mass/Vol] 12 mg/dL Normal [facility] Specialist Comment on above: Performed By: #### L MARIAH, NANI, MDIFF, VITD, CBCAD #### [facility] [address], [place] [id number] Cholesterol.total/ Cholesterol in HDL [Mass ratio] 4 {ratio} Normal [facility] Specialist Comment on above: Performed By: #### L MARIAH, CMP, MDIFF, VITD, CBCAD #### [facility] [address] [place], [place] [id number] Triglyceride [Mass/Vol] 61 mg/dL Normal 30-150 [facility] Specialist Comment on above: Result Comment: TRIG ATPIII CLASSIFICATIONS TRIG less than 150 mg/dl Normal TRIG 150-199 mg/dl Borderline High TRIG 200-500 mg/dl High TRIG greather than 500 mg/dl Very High Performed By: #### L IPD, CMP, MDIFF, VITD, CBCAD #### [facility] [address], [place] [id number] Manual Differentialon 2021 BAND 0.0 % Normal [facility] Specialist Comment on above: Performed By: #### L NANI LEMUS MDIFF, VITD, CBCAD #### [facility] [address], [place] [id number] BANDABS 0.0 K/uL Normal [facility] International Trade Manager Comment on above: Performed By: #### L NANI LEMUS MDIFF, VITD, CBCAD #### [facility] [address], [place] [id number] BASO 0.0 % Normal [facility] International Trade Manager Comment on above: Performed By: #### L NANI LEMUS MDIFF, VITD, CBCAD #### [facility] [address], [place] [id number] BASOABS 0.0 K/uL Normal 0.0-0.2 [facility] International Trade Manager Comment on above: Performed By: #### L NANI LEMUS, SIMONE, VITD, CBCAD #### [facility] [address], [place] [id number] EOS 1.0 % Normal [facility] International Trade Manager Comment on above: Performed By: #### L NANI LEMUS MDIFF, VITD, CBCAD #### [facility] [address], [place] [id number] EOSABS 0.0 K/uL Normal 0.0-0.5 [facility] International Trade Manager Comment on above: Performed By: #### L NANI LEMUS MDIFF, VITD, CBCAD #### [facility] [address], [place] [id number] LYMPH 64.0 % Normal [facility] International Trade Manager Comment on above: Performed By: #### L NANI LEMUS, SIMONE, VITD, CBCAD #### [facility] [address], [place] [id number] LYMPHABS 2.3 K/uL Normal 0.9-3.9 [facility] International Trade Manager Comment on above: Performed By: #### L NANI LEMUS MDIFF, VITD, CBCAD #### [facility] [address], [place] [id number] LYMPHATYP 2.0 % Normal 0.9-3.9 [facility] Specialist Comment on above: Performed By: #### L IPD, NANI, MDIFF, VITD, CBCAD #### [facility] [address], [place] [id number] MONO 8.0 % Normal [facility] Specialist Comment on above: Performed By: #### L IPD, CMP, MDIFF, VITD, CBCAD #### [facility] [address], [place] [id number] MONOABS 0.3 K/uL Normal 0.2-0.9 [facility] Specialist Comment on above: Performed By: #### L MARIAH, NANI, MDIFF, VITD, CBCAD #### [facility] [address], [place] [id number] RBCMORPH Normal Normal [facility] Specialist Comment on above: Performed By: #### L IPD, CMP, MDIFF, VITD, CBCAD #### [facility] [address], [place] [id number] SEG 25.0 % Normal [facility] Specialist Comment on above: Performed By: #### L MARIAH, CMP, MDIFF, VITD, CBCAD #### [facility] [address], [place] [id number] SEGABS 0.9 K/uL Low 1.5-7.8 [facility] International Trade Manager Comment on above: Performed By: #### L IPD, CMP, MDIFF, VITD, CBCAD #### [facility] [address], [place] [id number] WBC 3.5 K/uL Low 3.8-11.0 [facility] Specialist Comment on above: Performed By: #### L MARIAH, CMP, MDIFF, VITD, CBCAD #### [facility] [address], [place] [id number] Vitamin D 25-OHon 11-22-2021 VIT D 25 OH 71 ng/ml Normal >29 [facility] International Trade Manager Comment on above: Result Comment: Itzel min D Status Deficiency <20 ng/mL Insufficiency 20-29 ng/mL Optimal 30-100 ng/mL Possible Toxicity >=150 ng/mL Performed By: #### L IPD, CMP, MDIFF, VITD, CBCAD #### [facility] [address] [place], [place] [id number] TESTOSTERONE, TOTALon 2020 Testosterone [Mass/Vol] 402 ng/dL Normal 264-916 [facility] Comment on above: Result Comment: Adul t male reference interval is based on a population of healthy nonobese males (BMI <30) between 19 and 39 years old. [place], et.al. JCEM 2017,102;3139-8820. PMID: [id number]. Performed By: #### T ESTTOT #### [facility] [address] [address] [address] Efraín Guevara Vital Signs Date Time Vital Sign Value Performing Clinician Faci kaylee 09-24-2023 11:11-0500 Blood Pressure Location [email or web address] 09-24-2023 11:11-0500 Diastolic blood pressure 83 mm[Hg] Zhao SEARS [facility] 09-24-2023 11:11-0500 Heart rate 71 /min [email or web address] 09-24-2023 11:11-0500 Respiratory rate 16 /min [email or web address] 09-24-2023 11:11-0500 Systolic blood pressure 137 mm[Hg] [email or web address] 04-09-2023 15:36-0400 Blood Pressure Location [email or web address] 04-09-2023 15:36-0400 Diastolic blood pressure 82 mm[Hg] [email or web address] 04-09-2023 15:36-0400 Heart rate 78 /min Zhao SEARS [facility] 04-09-2023 15:36-0400 Systolic blood pressure 138 mm[Hg] Zhao SEARS [facility] 07-03-2022 15:24-0500 Blood Pressure Location Zhaocaleb SEARS [facility] 07-03-2022 15:24-0500 Diastolic blood pressure 88 mm[Hg] Zhao SEARS [facility] 07-03-2022 15:24-0500 Heart rate 70 /min Zhaocaleb SEARS [facility] 07-03-2022 15:24-0500 Respiratory rate 16 /min Zhao SEARS [facility] 07-03-2022 15:24-0500 Systolic blood pressure 135 mm[Hg] Zhoa SEARS [facility] Encounters Encounter Date Encounter Type Care Provider Facility Start: 02-12-2024 End: 02-12-2024 ambulatory Zhao SEARS Facility:[facility] Start: 02-12-2024 End: 02-12-2024 Patient encounter procedure Zhao SEARS [facility] Start: 01-16-2024 End: 01-16-2024 ambulatory CAROLEE IRELAND Not Available Start: 2024 End: 2024 ambulatory DEMETRIS TINEO Facility:[facility] Start: 2024 End: 2024 Patient encounter procedure DEMETRIS TINEO [facility] Start: 12-18-2023 End: 12-18-2023 ambulatory Cindyshilo Tamea [facility] Start: 12-18-2023 End: 12-18-2023 Patient encounter procedure Cindy Kvng Tamea [facility] [employer] Start: 11-20-2023 End: 11-20-2023 ambulatory Zhao SEARS [facility] Start: 11-20-2023 End: 11-20-2023 Patient encounter procedure Zhao R ORION [facility] [place] Start: 10-22-2023 End: 10-22-2023 ambulatory Zhao R ORION Facility:[facility] Start: 09-24-2023 End: 09-24-2023 ambulatory Zhao R ORION Facility:[facility] Start: 09-24-2023 End: 09-24-2023 Patient encounter procedure Zhao R ORION [facility] Start: 08-28-2023 End: 08-28-2023 ambulatory Zhao R ORION Facility:[facility] Start: 08-28-2023 End: 08-28-2023 Patient encounter procedure Zhao R ORION [facility] [employer] Start: 07-30-2023 End: 07-30-2023 ambulatory Zhao R SEARS Facility:[facility] Start: 07-30-2023 End: 07-30-2023 Patient encounter procedure Zhao R SEARS [facility] [employer] Start: 07-02-2023 End: 07-02-2023 ambulatory Zhao R ORION Facility:[facility] Start: 07-02-2023 End: 07-02-2023 Patient encounter procedure Zhao Momo [facility] [employer] Start: 06-04-2023 End: 06-04-2023 ambulatory Zhao SEARS Facility[facility] Start: 05-07-2023 End: 05-07-2023 ambulatory Zhao Momo ORION Facility:[facility] Start: 05-07-2023 End: 05-07-2023 Patient encounter procedure Zhao R SEARS [facility] [employer] Start: 04-09-2023 End: 04-09-2023 ambulatory Zhao Momo ORION Facility:[facility] Start: 04-09-2023 End: 04-09-2023 Patient encounter procedure Zhao SEARS [facility] [employer] Start: 03-12-2023 End: 03-12-2023 ambulatory Zhao Momo ORION Facility:[facility] Start: 03-12-2023 End: 03-12-2023 Patient encounter procedure Zhao R ORION [facility] [employer] Start: 02-12-2023 End: 02-12-2023 Patient encounter procedure Zhao SEARS [facility] [employer] Start: 12-18-2022 End: 12-18-2022 Patient encounter procedure Zhao SEARS [facility] [employer] Start: 11-20-2022 End: 11-20-2022 Patient encounter procedure Zhao SEARS [facility] [employer] Start: 10-23-2022 End: 10-23-2022 Patient encounter procedure Zhao SEARS [facility] [employer] Start: 08-29-2022 End: 08-29-2022 Patient encounter procedure DEMETRIS TINEO [facility] Start: 07-31-2022 End: 07-31-2022 Patient encounter procedure Zhao SEARS [facility] Start: 07-03-2022 End: 07-03-2022 Patient encounter procedure Zhao SEARS [facility] [employer] Start: 06-05-2022 End: 06-05-2022 Patient encounter procedure Zhao SEARS [facility] [employer] Start: 05-08-2022 End: 05-08-2022 Patient encounter procedure Zhao SEARS [facility] [employer] Start: 04-10-2022 End: 04-10-2022 Patient encounter procedure Zhao SEARS [facility] [employer] Start: 03-13-2022 End: 03-13-2022 Patient encounter procedure Zhao SEARS [facility] [employer] Start: 02-13-2022 End: 02-13-2022 Patient encounter procedure Zhao SEARS [facility] Start: 12-23-2021 End: 12-23-2021 Patient encounter procedure Pipe Barney JAMA [facility] [employer] Start: 11-21-2021 End: 11-21-2021 Patient encounter procedure Zhao SEARS [facility] Start: 06-18-2021 End: 06-19-[address] ZHAO SEARS Facility:[facility] Plan of Treatment Date Care Activity Detail Author Start: 04-07-2024 ambulatory Ambulatory Facility:[facility] [place] Immunizations Immunization Date Immunization Notes Care Provider Fa cili 07-04-2021 SARS-CoV-2 mRNA (tozinameran 5y-11y) vaccine Zhao SEARS [facility] 06-08-2021 SARS-CoV-2 (COVID-19 ) mRNA BNT-162b2 vax Zhao SEARS [facility] 06-02-2021 SARS-CoV-2 mRNA (tozinameran 5y-11y) vaccine Zhao SEARS [facility] 05-18-2021 SARS-CoV-2 (COVID-19 ) mRNA BNT-162b2 vax Zhao SEARS [facility] 10-27-2020 tetanus and diphther ia toxoids, adsorbed, preservative free, for adult use (2 Lf of tetanus toxoid and 2 Lf of diphtheria toxoid) Zhao SEARS [facility] 04-05-2000 Td(adult) unspecifie d formulation Zhao SEARS [facility] 03-16-1994 measles, mumps and rubella virus vaccine Zhao SEARS [facility] 12-18-1985 tetanus toxoid, redu isabel diphtheria toxoid, and acellular pertussis vaccine, adsorbed Zhao SEARS [facility] 06-09-1982 measles, mumps and rubella virus vaccine Zhao SEARS [facility] Payers Date Payer Category Payer Unknown [id number] 1981 Unknown [id number] 2.16.84 [id number] 1981 Unknown [id number] 2.16.84 [id number] 1981 Unknown [id number] 2.16.8 40.1.618101.3.579.2 1981 Unknown [id number] 2.16.8 40.1.732943.3.579.2. 1981 Unknown [id number] 2.16.8 40.1.019895.3.579.2 1981 Unknown [id number] 2.16.8 40.1.607647.3.579.2. 1981 Unknown [id number] 2.16.8 40.1.796987.3.579.2 1981 Unknown [id number] 2.16.8 40.1.633261.3.579.2 1981 Unknown [id number] 2.16.8 40.1.322910.3.579.2. 1981 Unknown [id number] 2.16.8 40.1.293643.3.579.2.727 1981 Unknown [id number] 2.16.8 40.1.063788.3.579.2.727 1981 Unknown [id number] 2.16.8 40.1.840039.3.579.2.727 1981 Unknown [id number] 2.16.8 40.1.953028.3.579.2.727 1981 Unknown [id number] 2.16.8 40.1.647817.3.579.2.727 1981 Unknown [id number] 2.16.8 40.1.212210.3.579.2.727 1981 Unknown [id number] 2.16.8 40.1.948775.3.579.2.727 1959 Unknown [id number] Social History Date Type Detail Facility Start: 07-04-2021 End: 01-16-2022 Tobacco smoking status Ex-smoker (finding) [facility] Sex Assigned At Male [facility] Start: 04-09-2023 Tobacco smoking status Never [facility] Functional Status Date Assessment Result Facility 09-24-2023 Functional Status N/A [facility] 04-09-2023 Functional Status N/A [facility] 07-03-2022 Functional Status N/A [facility] Clinical Notes 07-03-2022 to 09-24-2023 Note Date & Type Note Facility 09-24-2023 Hospital Discharge instructions Patient Education 09/24/2023 12:28:03 Hypogonadism, Male Hypogonadism, Male Male hypogonadism is a condition of having a level of testosterone that is lower than normal. Testosterone is a chemical, or hormone, that is made mainly in the testicles. In boys, testosterone is responsible for the development of male characteristics during puberty. These include: Making the penis bigger. Growing and building the muscles. Growing facial hair. Deepening the voice. In adult men, testosterone is responsible for maintaining: An interest in sex and the ability to have sex. Muscle mass. Sperm production. Red blood cell production. Bone strength. Testosterone also gives men energy and a sense of well-being. Testosterone normally decreases as men age and the testicles make less testosterone. Testosterone levels can vary from man to man. Not all men will have signs and symptoms of low testosterone. Weight, alcohol use, medicines, and certain medical conditions can affect a man's testosterone level. What are the causes? This condition is caused by: A natural decrease in testosterone that occurs as a man grows older. This is the main cause of this condition. Use of medicines, such as antidepressants, steroids, and opioids. Diseases and conditions that affect the testicles or the making of testosterone. These include: ?Injury or damage to the testicles from trauma, cancer, cancer treatment, or infection. ?Diabetes. ?Sleep apnea. ?Genetic conditions that men are born with. ?Disease of the pituitary gland. This gland is in the brain. It produces hormones. ?Obesity. ?Metabolic syndrome. This is a group of diseases that affect blood pressure, blood sugar, cholesterol, and belly fat. ?HIV or AIDS. ?Alcohol abuse. ?Kidney failure. ?Other long-term or chronic diseases. What are the signs or symptoms? Common symptoms of this condition include: Loss of interest in sex (low sex drive). Inability to have or maintain an erection (erectile dysfunction). Feeling tired (fatigue). Mood changes, like irritability or depression. Loss of muscle and body hair. Infertility. Large breasts. Weight gain (obesity). How is this diagnosed? Your health care provider can diagnose hypogonadism based on: Your signs and symptoms. A physical exam to check your testosterone levels. This includes blood tests. Testosterone levels can change throughout the day. Levels are highest in the morning. You may need to have repeat blood tests before getting a diagnosis of hypogonadism. Depending on your medical history and test results, your health care provider may also do other tests to find the cause of low testosterone. How is this treated? This condition is treated with testosterone replacement therapy. Testosterone can be given by: Injection or through pellets inserted under the skin. Gels or patches placed on the skin or in the mouth. Testosterone therapy is not for everyone. It has risks and side effects. Your health care provider will consider your medical history, your risk for prostate cancer, your age, and your symptoms before putting you on testosterone replacement therapy. Follow these instructions at home: Take jayr-pzq-kcfcmpl and prescription medicines only as told by your health care provider. Eat foods that are high in fiber, such as beans, whole grains, and fresh fruits and vegetables. Limit foods that are high in fat and processed sugars, such as fried or sweet foods. If you drink alcohol: ?Limit how much you have to 0 2 drinks a day. ?Know how much alcohol is in your drink. In the [place] one drink equals one 12 oz bottle of beer (355 mL), one 5 oz glass of wine (148 mL), or one 1 oz glass of hard liquor (44 mL). Return to your normal activities as told by your health care provider. Ask your health care provider what activities are safe for you. Keep all follow-up visits. This is important. Contact a health care provider if: You have any of the signs or symptoms of low testosterone. You have any side effects from testosterone therapy. Summary Male hypogonadism is a condition of having a level of testosterone that is lower than normal. The natural drop in testosterone production that occurs with age is the most common cause of this condition. Low testosterone can also be caused by many diseases and conditions that affect the testicles and the making of testosterone. This condition is treated with testosterone replacement therapy. There are risks and side effects of testosterone therapy. Your health care provider will consider your age, medical history, symptoms, and risks for prostate cancer before putting you on testosterone therapy. This information is not intended to replace advice given to you by your health care provider. Make sure you discuss any questions you have with your health care provider. Document Revised: 04/14/2021 Document Reviewed: 04/14/2021 [employer] [place] Patient Education 2022 [employer]. Follow Up Care 04/09/2023 16:36:59 With:ORION HERNANDEZ, Zhao Barr, URL Address: [facility] [address] [place] [address]- [phone] When: Unknown Comments:6 mos w/ T level and PSA [facility] 04-09-2023 Hospital Discharge instructions Patient Education 04/09/2023 16:22:42 Hypogonadism, Male Hypogonadism, Male Male hypogonadism is a condition of having a level of testosterone that is lower than normal. Testosterone is a chemical, or hormone, that is made mainly in the testicles. In boys, testosterone is responsible for the development of male characteristics during puberty. These include: Making the penis bigger. Growing and building the muscles. Growing facial hair. Deepening the voice. In adult men, testosterone is responsible for maintaining: An interest in sex and the ability to have sex. Muscle mass. Sperm production. Red blood cell production. Bone strength. Testosterone also gives men energy and a sense of well-being. Testosterone normally decreases as men age and the testicles make less testosterone. Testosterone levels can vary from man to man. Not all men will have signs and symptoms of low testosterone. Weight, alcohol use, medicines, and certain medical conditions can affect a man's testosterone level. What are the causes? This condition is caused by: A natural decrease in testosterone that occurs as a man grows older. This is the main cause of this condition. Use of medicines, such as antidepressants, steroids, and opioids. Diseases and conditions that affect the testicles or the making of testosterone. These include: ?Injury or damage to the testicles from trauma, cancer, cancer treatment, or infection. ?Diabetes. ?Sleep apnea. ?Genetic conditions that men are born with. ?Disease of the pituitary gland. This gland is in the brain. It produces hormones. ?Obesity. ?Metabolic syndrome. This is a group of diseases that affect blood pressure, blood sugar, cholesterol, and belly fat. ?HIV or AIDS. ?Alcohol abuse. ?Kidney failure. ?Other long-term or chronic diseases. What are the signs or symptoms? Common symptoms of this condition include: Loss of interest in sex (low sex drive). Inability to have or maintain an erection (erectile dysfunction). Feeling tired (fatigue). Mood changes, like irritability or depression. Loss of muscle and body hair. Infertility. Large breasts. Weight gain (obesity). How is this diagnosed? Your health care provider can diagnose hypogonadism based on: Your signs and symptoms. A physical exam to check your testosterone levels. This includes blood tests. Testosterone levels can change throughout the day. Levels are highest in the morning. You may need to have repeat blood tests before getting a diagnosis of hypogonadism. Depending on your medical history and test results, your health care provider may also do other tests to find the cause of low testosterone. How is this treated? This condition is treated with testosterone replacement therapy. Testosterone can be given by: Injection or through pellets inserted under the skin. Gels or patches placed on the skin or in the mouth. Testosterone therapy is not for everyone. It has risks and side effects. Your health care provider will consider your medical history, your risk for prostate cancer, your age, and your symptoms before putting you on testosterone replacement therapy. Follow these instructions at home: Take leat-aaf-latnedk and prescription medicines only as told by your health care provider. Eat foods that are high in fiber, such as beans, whole grains, and fresh fruits and vegetables. Limit foods that are high in fat and processed sugars, such as fried or sweet foods. If you drink alcohol: ?Limit how much you have to 0 2 drinks a day. ?Know how much alcohol is in your drink. In the [place] one drink equals one 12 oz bottle of beer (355 mL), one 5 oz glass of wine (148 mL), or one 1 oz glass of hard liquor (44 mL). Return to your normal activities as told by your health care provider. Ask your health care provider what activities are safe for you. Keep all follow-up visits. This is important. Contact a health care provider if: You have any of the signs or symptoms of low testosterone. You have any side effects from testosterone therapy. Summary Male hypogonadism is a condition of having a level of testosterone that is lower than normal. The natural drop in testosterone production that occurs with age is the most common cause of this condition. Low testosterone can also be caused by many diseases and conditions that affect the testicles and the making of testosterone. This condition is treated with testosterone replacement therapy. There are risks and side effects of testosterone therapy. Your health care provider will consider your age, medical history, symptoms, and risks for prostate cancer before putting you on testosterone therapy. This information is not intended to replace advice given to you by your health care provider. Make sure you discuss any questions you have with your health care provider. Document Revised: 04/14/2021 Document Reviewed: 04/14/2021 [employer] [place] Patient Education 2022 [employer]. Follow Up Care 09/25/2022 15:36:45 With:ORION HERNANDEZ, Zhao Barr, URL Address: [facility] [address], [place] [address] [phone] When:Within 6 Month(s) Comments:Testosterone level and CBC [facility] 07-03-2022 Hospital Discharge instructions Patient Education 07/03/2022 16:13:16 Erectile Dysfunction Erectile Dysfunction Erectile dysfunction (ED) is the inability to get or keep an erection in order to have sexual intercourse. Erectile dysfunction may include: Inability to get an erection. Lack of enough hardness of the erection to allow penetration. Loss of the erection before sex is finished. What are the causes? This condition may be caused by: Certain medicines, such as: ?Pain relievers. ?Antihistamines. ?Antidepressants. ?Blood pressure medicines. ?Water pills (diuretics). ?Ulcer medicines. ?Muscle relaxants. ?Drugs. Excessive drinking. Psychological causes, such as: ?Anxiety. ?Depression. ?Sadness. ?Exhaustion. ?Performance fear. ?Stress. Physical causes, such as: ?Artery problems. This may include diabetes, smoking, liver disease, or atherosclerosis. ?High blood pressure. ?Hormonal problems, such as low testosterone. ?Obesity. ?Nerve problems. This may include back or pelvic injuries, diabetes mellitus, multiple sclerosis, or Parkinson disease. What are the signs or symptoms? Symptoms of this condition include: Inability to get an erection. Lack of enough hardness of the erection to allow penetration. Loss of the erection before sex is finished. Normal erections at some times, but with frequent unsatisfactory episodes. Low sexual satisfaction in either partner due to erection problems. A curved penis occurring with erection. The curve may cause pain or the penis may be too curved to allow for intercourse. Never having nighttime erections. How is this diagnosed? This condition is often diagnosed by: Performing a physical exam to find other diseases or specific problems with the penis. Asking you detailed questions about the problem. Performing blood tests to check for diabetes mellitus or to measure hormone levels. Performing other tests to check for underlying health conditions. Performing an ultrasound exam to check for scarring. Performing a test to check blood flow to the penis. Doing a sleep study at home to measure nighttime erections. How is this treated? This condition may be treated by: Medicine taken by mouth to help you achieve an erection (oral medicine). Hormone replacement therapy to replace low testosterone levels. Medicine that is injected into the penis. Your health care provider may instruct you how to give yourself these injections at home. Vacuum pump. This is a pump with a ring on it. The pump and ring are placed on the penis and used to create pressure that helps the penis become erect. Penile implant surgery. In this procedure, you may receive: ?An inflatable implant. This consists of cylinders, a pump, and a reservoir. The cylinders can be inflated with a fluid that helps to create an erection, and they can be deflated after intercourse. ?A semi-rigid implant. This consists of two silicone rubber rods. The rods provide some rigidity. They are also flexible, so the penis can both curve downward in its normal position and become straight for sexual intercourse. Blood vessel surgery, to improve blood flow to the penis. During this procedure, a blood vessel from a different part of the body is placed into the penis to allow blood to flow around (bypass) damaged or blocked blood vessels. Lifestyle changes, such as exercising more, losing weight, and quitting smoking. Follow these instructions at home: Medicines Take vyjb-qhl-epkmmcl and prescription medicines only as told by your health care provider. Do not increase the dosage without first discussing it with your health care provider. If you are using self-injections, perform injections as directed by your health care provider. Make sure to avoid any veins that are on the surface of the penis. After giving an injection, apply pressure to the injection site for 5 minutes. General instructions Exercise regularly, as directed by your health care provider. Work with your health care provider to lose weight, if needed. Do not use any products that contain nicotine or tobacco, such as cigarettes and e-cigarettes. If you need help quitting, ask your health care provider. Before using a vacuum pump, read the instructions that come with the pump and discuss any questions with your health care provider. Keep all follow-up visits as told by your health care provider. This is important. Contact a health care provider if: You feel nauseous. You vomit. Get help right away if: You are taking oral or injectable medicines and you have an erection that lasts longer than 4 hours. If your health care provider is unavailable, go to the nearest emergency room for evaluation. An erection that lasts much longer than 4 hours can result in permanent damage to your penis. You have severe pain in your groin or abdomen. You develop redness or severe swelling of your penis. You have redness spreading up into your groin or lower abdomen. You are unable to urinate. You experience chest pain or a rapid heart beat (palpitations) after taking oral medicines. Summary Erectile dysfunction (ED) is the inability to get or keep an erection during sexual intercourse. This problem can usually be treated successfully. This condition is diagnosed based on a physical exam, your symptoms, and tests to determine the cause. Treatment varies depending on the cause, and may include medicines, hormone therapy, surgery, or vacuum pump. You may need follow-up visits to make sure that you are using your medicines or devices correctly. Get help right away if you are taking or injecting medicines and you have an erection that lasts longer than 4 hours. This information is not intended to replace advice given to you by your health care provider. Make sure you discuss any questions you have with your health care provider. Document Released: 08/10/2001 Document Revised: 07/26/2018 Document Reviewed: 08/29/2017 [employer] [place] Patient Education 2020 [employer]. Follow Up Care 01/16/2022 16:42:22 With:ORION HERNANDEZ, Zhao Barr, URL Address: [facility] [address], [place] [address] [phone] When:12/31/2022 Comments:Testosterone levels. [facility] Evaluation + Plan note Future Appointments Appointment Date:11/22/2021 02:45:00 PM Scheduled Provider: Location:[facility] Appointment Type:URO Nurse Visit [facility] Evaluation + Plan note Future Appointments Appointment Date:01/16/2022 02:45:00 PM Scheduled Provider:Zhao SEARS MD Location:[facility] Appointment Type:URO Office Visit Diagnostic Tests PendingTestosterone Level Total 12/23/21 [facility] Evaluation + Plan note Future Appointments Appointment Date:03/13/2022 02:45:00 PM Scheduled Provider: Location:[facility] Appointment Type:URO Nurse Visit Appointment Date:07/24/2022 02:45:00 PM Scheduled Provider:Zhao SEARS MD [facility] Appointment Type:URO Office Visit [facility] Evaluation + Plan note Future Appointments Appointment Date:04/10/2022 03:00:00 PM Scheduled Provider: Location:[facility] Appointment Type:URO Nurse Visit Appointment Date:07/24/2022 02:45:00 PM Scheduled Provider:Zhao SEARS MD Location[facility] Appointment Type:URO Office Visit [facility] Evaluation + Plan note Future Appointments Appointment Date:05/08/2022 02:30:00 PM Scheduled Provider: Location[facility] Appointment Type:URO Nurse Visit Appointment Date:07/24/2022 02:45:00 PM Scheduled Provider:Zhao SEARS MD Location:[facility] Appointment Type:URO Office Visit [facility] Evaluation + Plan note Future Appointments Appointment Date:06/05/2022 02:30:00 PM Scheduled Provider: Location:[facility] Appointment Type:URO Nurse Visit Appointment Date:07/24/2022 02:45:00 PM Scheduled Provider:Zhao SEARS MD Location:[facility] Appointment Type:URO Office Visit [facility] Evaluation + Plan note Future Appointments Appointment Date:07/03/2022 03:00:00 PM Scheduled Provider:Zhao SEARS MD Location[facility] Appointment Type:URO Office Visit Diagnostic Tests PendingTestosterone Level Total 06/05/22 [facility] Evaluation + Plan note Future Appointments Appointment Date:07/31/2022 03:00:00 PM Scheduled Provider: Location:[facility] Appointment Type:URO Nurse Visit [facility] Evaluation + Plan note Future Appointments Appointment Date:08/29/2022 03:00:00 PM Scheduled Provider: Location:[facility] Appointment Type:URO Nurse Visit [facility] Evaluation + Plan note Future Appointments Appointment Date:09/25/2022 03:00:00 PM Scheduled Provider: Location:[facility] Appointment Type:URO Nurse Visit [facility] Evaluation + Plan note Future Appointments Appointment Date:11/20/2022 03:00:00 PM Scheduled Provider: Location:[facility] Appointment Type:URO Nurse Visit Appointment Date:03/26/2023 03:15:00 PM Scheduled Provider:Zhao SEARS MD Location:[facility] Appointment Type:URO Office Visit [facility] Evaluation + Plan note Future Appointments Appointment Date:12/18/2022 03:00:00 PM Scheduled Provider: Location:[facility] Appointment Type:URO Nurse Visit Appointment Date:03/26/2023 03:15:00 PM Scheduled Provider:Zhao SEARS MD Location:[facility] Appointment Type:URO Office Visit [facility] Evaluation + Plan note Future Appointments Appointment Date:2023 02:45:00 PM Scheduled Provider: Location:[facility] Appointment Type:URO Nurse Visit Appointment Date:03/26/2023 03:15:00 PM Scheduled Provider:Zhao SEARS MD Location:[facility] Appointment Type:URO Office Visit [facility] Evaluation + Plan note Future Appointments Appointment Date:03/12/2023 03:00:00 PM Scheduled Provider: Location:[facility] Appointment Type:URO Nurse Visit Appointment Date:04/09/2023 03:45:00 PM Scheduled Provider:Zhao SEARS MD Location:[facility] Appointment Type:URO Office Visit [facility] Evaluation + Plan note Future Appointments Appointment Date:04/09/2023 03:45:00 PM Scheduled Provider:Zhao SEARS MD Location:[facility] Appointment Type:URO Office Visit Diagnostic Tests PendingCBC w/ Auto Diff 03/12/23Testosterone Level Total 03/12/23 [facility] Evaluation + Plan note Future Appointments Appointment Date:05/07/2023 03:00:00 PM Scheduled Provider: Location:[facility] Appointment Type:URO Nurse Visit Appointment Date:09/24/2023 02:45:00 PM Scheduled Provider:Zhao SEARS MD Location:[facility] Appointment Type:URO Office Visit Diagnostic Tests PendingCBC w/ Auto Diff 04/09/23Testosterone Level Total 04/09/23 [facility] Evaluation + Plan note Future Appointments Appointment Date:06/04/2023 03:00:00 PM Scheduled Provider: Location:[facility] Appointment Type:URO Nurse Visit Appointment Date:09/24/2023 02:45:00 PM Scheduled Provider:Zhao SEARS MD Location:[facility] Appointment Type:URO Office Visit [facility] Evaluation + Plan note Future Appointments Appointment Date:07/30/2023 02:45:00 PM Scheduled Provider: Location:[facility] Appointment Type:URO Nurse Visit Appointment Date:08/28/2023 03:00:00 PM Scheduled Provider: Location:[facility] Appointment Type:URO Nurse Visit Appointment Date:09/24/2023 10:45:00 AM Scheduled Provider:Zhao SEARS MD Location:[facility] Appointment Type:URO Office Visit [facility] Evaluation + Plan note Future Appointments Appointment Date:08/28/2023 03:00:00 PM Scheduled Provider: [facility] Appointment Type:URO Nurse Visit Appointment Date:09/24/2023 10:45:00 AM Scheduled Provider:Zhao SEARS MD Location:[facility] Appointment Type:URO Office Visit [facility] Evaluation + Plan note Future Appointments Appointment Date:09/24/2023 10:45:00 AM Scheduled Provider:Zhao SEARS MD Location:[facility] Appointment Type:URO Office Visit [facility] Evaluation + Plan note Future Appointments Appointment Date:10/22/2023 10:30:00 AM Scheduled Provider: Location:[facility] Appointment Type:URO Nurse Visit Diagnostic Tests PendingPSA Screen, Total 09/24/23Testosterone Level Total 09/24/23 [facility] Evaluation + Plan note Future Appointments Appointment Date:12/18/2023 03:00:00 PM Scheduled Provider: Location[facility] Appointment Type:URO Nurse Visit Appointment Date:03/10/2024 09:30:00 AM Scheduled Provider:Zhao SEARS MD Location[facility] Appointment Type:URO Office Visit [facility] Evaluation + Plan note Future Appointments Appointment Date:2024 03:00:00 PM Scheduled Provider: Location:[facility] Appointment Type:URO Nurse Visit Appointment Date:03/10/2024 09:30:00 AM Scheduled Provider:Zhao SEARS MD Location:[facility] Appointment Type:URO Office Visit [facility] Evaluation + Plan note Future Appointments Appointment Date:02/12/2024 03:00:00 PM Scheduled Provider: Location:[facility] Appointment Type:URO Nurse Visit Appointment Date:03/10/2024 09:30:00 AM Scheduled Provider:Zhao SEARS MD Location:[facility] Appointment Type:URO Office Visit [facility] Evaluation + Plan note Future Appointments Appointment Date:03/10/2024 09:30:00 AM Scheduled Provider:Zhao SEARS MD Location:[facility] Appointment Type:URO Office Visit [facility] Hospital course Narrative No data available for this section [facility] Hospital Discharge instructions No data available for this section [facility] [employer] Progress note No data available for this section [facility] [employer] Summary Purpose Family History No Family History Records FoundNo Family History Records Found No data available for this section No data available for this section No data available for this section No data available for this section No data available for this section No data available for this section No data available for this section No Family History Records Found No data available for this section No Family History Records Found Advance Directives No Advanced Directives Records FoundNo Advanced Directives Records FoundNo Advanced Directives Records FoundNo Advanced Directives Records Found Additional Source Comments (unrecognized sect ion and content) No Status Records FoundNo Status Records FoundNo Status Records FoundNo Status Records Found INFORMATION SOURCE (unrecogn ized section and content) DATE CREATED AUTHOR 06/25/2021 [facility] DATE CREATED AUTHOR AUTHOR'S ORGANIZ ATION 01/08/2022 [facility] Special[facility] DATE CREATED AUTHOR AUTHOR'S ORGANIZ ATION 01/19/2024 [facility] d[facility] Specialists EPIC DATE CREATED AUTHOR AUTHOR'S ORGANIZ ATION 02/21/2024 [facility] Care Team (unrecognized sect ion and content) Personnel Name: FARHAT LEONARD CNP Address: [address] [place], [place] [address] Personnel Name: FARHAT LEONARD CNP Address: [address] [facility] [place] [address] [place] Personnel Name: MICHAELAAJAYArnulfo RIVERAFARHAT Address: [address] [facility] [place] [address]- [place] Personnel Name: HORACIO RIVERAFARHAT Address: [address] [facility] [place] [address]- [place] Personnel Name: HORACIO RIVERAFARHAT Address: Address: [address] [facility] [place] [address]- [place] Personnel Name: HORACIO RIVERAFARHAT Address: Address: [address] [facility] [place] [address]- [place] Personnel Name: HORACIO RIVERAFARHAT Address: Address: [address] [facility] [place] [address]- [place] Personnel Name: HORACIO RIVERAFARHAT Address: Address: [address] [facility] [place] [address]- [place] Personnel Name: HORACIO RIVERAFARHAT Address: Address: [address] [facility] [place] [address]- [place] Personnel Name: HORACIO RIVERAFARHAT Address: Address: [address] [facility] [place] [address]- [place] Personnel Name: HORACIO RIVERAFARHAT Address: Address: [address] [facility] [place] [address]- [place] Personnel Name: HORACIO RIVERAFARHAT Address: Address: [address] [facility] [place] [address]- [place] Personnel Name: HORACIO RIVERAFARHAT Address: Address: [address] [facility] [place] [address]- [place] Personnel Name: HORACIO RIVERAFARHAT Address: Address: [address] [facility] [place] [address]- [place] Personnel Name: HORACIO RIVERAFARHAT Address: Address: [address] [facility] [place] [address]- [place] Personnel Name: HORACIO RIVERAFARHAT Address: Address: [address] [facility] [place] [address]- [place] Personnel Name: HORACIO RIVERA FARHAT Address: Address: [address] [facility] [place] [address]- [place] Personnel Name: HORACIO RIVERA FARHAT Address: Address: [address] [facility] [place] [address]- [place] Personnel Name: FARHAT LEONARD CNP Address: Address: [address] [place] [id number] Personnel Name: FARHAT LEONARD CNP Address: Address: [address] [place] [id number] Personnel Name: FARHAT LEONARD CNP Address: Address: [address] [place] [id number] Personnel Name: FARHAT LEONARD CNP Address: Address: [address] [place] [id number] Personnel Name: FARHAT LEONARD CNP Address: Address: [address] FOR RECORDS PERTAINING TO PATIENTS WHO ARE OR HAVE BEEN ENROLLED IN A CHEMICAL DEPENDENCY/SUBSTANCEABUSE PROGRAM, SOME INFORMATION MAY BE OMITTED. This clinical summary was aggregated from multiple sources. Caution should be exercised in using it in the provision of clinical care. This summary normalizes information from multiple sources, and as a consequence, information in this document may materially change the coding, format and clinical context of patient data. In addition, data may be omitted in some cases. CLINICAL DECISIONS SHOULD BE BASED ON THE PRIMARY CLINICAL RECORDS. [facility] [employer] [facility]. provides no warranty or guarantee of the accuracy or completeness of information in this document.
[2024-03-01 09:42] LABS: Prostate Specific Antigen Scrn 0.55 ng/mL (<=4.00)
[2024-03-02 07:07] LABS: Testosterone 160 ng/dL (264-916)
== END 2024-03-01 08:53 | disposition home or self-care (01) ==
LOC: LAB 08:53
PROVIDERS: PCP Nurse Practitioner Family; Visit Provider Urology
DX: E29.1 Testicular hypofunction (principal); Z12.5 Encounter for screening for malignant neoplasm of prostate
CPT/HCPCS: 36415; 84403; G0103

== ENCOUNTER 2024-10-06 08:17 | Outpatient (OUT) | payer OTHER, SELFPAY ==
--- OUTSIDE RECORDS SUMMARY | 2024-10-06 08:34 | XMS_ITS | CCD ---
Author Organization [facility] Inform ion [facility] Care Team Providers Care Washer Meat Name Role Phone BELKYS, DR HERNANDEZ Attending Unavailable SEARS, DR HERNANDEZ Consulting Unavailable SEARS, DR HERNANDEZ Admitting Unavailable CORRINE MENDEZ Primary Care Unavailable FARHAT LEONARD Primary Care Physician CAROLEE MANDEL Primary Care Physician Unavailab Izzy HERNANDEZ, Bear Willis Primary Care Provider Todd ROAD PASSENGER FIRER, Corrine Unavailable Ministerio RO[address] PASSENGER FIRER, Carolee Barr Unavailable [phone] CAROLEE MANDEL Attending Unavailable LABRAEDEN, CAROLEE Barr Attending Unavailable SEARS, Zhao Barr Attending Unavailable SEARS, Zhao Barr Attending Unavailable SEARS, Zhao Barr Attending Unavailable GalCindy vasquez Attending Unavailable SEARS, Zhao Barr Attending Unavailable NOMAN, DEMETRIS Hooper Attending Unavailable NOMAN, DEMETRIS Hooper Attending Unavailable NOMAN, DEMETRIS Hooper Attending Unavailable NOMAN, DEMETRIS Hooper Attending Unavailable SEARS, Zhao R Attending Unavailable SEARS, Zhao Barr Attending Unavailable SEARS, Zhao R Attending Unavailable SEARS, Zhao R Attending Unavailable SEARS, Zhao R Attending Unavailable NOMAN, DEMETRIS Hooper Attending Unavailable NOMAN, DEMETRIS E Attending Unavailable SEARS, Zhao R Attending Unavailable Allergies Allergy Classification Reported Allergen(s) Allergy Type Date of Onset Reaction(s) Facility (1 source) No Known Medication Allergies; Translations: [No Known Medication Allergies] Propensity to adverse reactions (disorder) [facility] Repository Medications Current Medications Medication Drug Class(es) Dates Sig (Normalized) Sig (Original) amLODIPine 10 mg oral tablet (7 sources) Dihydropyridine Calcium Channel Ena Start: 04-14-2019 take 1 tablet by mouth once daily amLODIPine 10 mg Tab 10 mg = 1 tab(s), Oral, Daily Start Date: 04/14/19 Status: Ordered amLODIPine 10 mg / atorvastatin 20 mg oral tablet (20 sources) Dihydropyridine Calcium Channel Ena, HMG-CoA Reductase Inhibitor Start: 07-03-2022 take 1 tablet by mouth once daily amlodipine-atorva statin 10 mg-20 mg oral tablet tab(s), Oral, Daily, Refill(s) 0 Start Date: 07/03/22 Status: Ordered amLODIPine 10 mg / benazepril hydrochloride 20 mg oral capsule (5 sources) Dihydropyridine Calcium Channel Ena, Angiotensin Converting Enzyme Inhibitor Start: 01-16-2024 End: 07-11-2025 take 1 capsule by mouth once daily amLODIPine-benaze pril (Lotrel) 10-20 MG capsule Indications: Primary hypertension (CMS/HCC) Take 1 capsule by mouth Daily Pt ,must see provider for any additional refills. 90 capsule 3 07/16/2024 07/11/2025 Active 1 ml testosterone cypionate 200 mg/ml injection (3 sources) Androgen Start: 09-25-2022 testosterone cypionate (Depo-Testosteron e) 200 MG/ML injection Inject 350 mg into the shoulder, thigh, or buttocks. 09/25/2022 Active testosterone cypionate 200 mg/mL IM Yvonne (20 sources) Start: 06-16-2024 testosterone cypionate 200 mg/mL IM Yvonne 500 mg, IntraMuscular, q4wk, # 10 mL, Refills(s) 5, Pharmacy: [facility] #[id number], 190, cm, 04/07/24 12:31:00 EDT, Height/Length Dosing, 102.7, kg, 04/07/24 12:31:00 EDT, Weight Dosing Start Date: 06/16/24 Status: Ordered Start: 04-07-2024 testosterone c ypionate 200 mg/mL IM Yvonne 500 mg, IntraMuscular, q4wk, # 10 mL, Refills(s) 5, Pharmacy: [facility] [id number], 190, cm, 04/07/24 12:31:00 EDT, Height/Length Dosing, 102.7, kg, 04/07/24 12:31:00 EDT, Weight Dosing Start Date: 04/07/24 Status: Ordered Start: 11-14-2023 testosterone c ypionate 200 mg/mL IM Yvonne 350 mg, IntraMuscular, q4wk, # 10 mL, Refills(s) 3, Pharmacy: [facility] #[id number], 190, cm, 09/24/23 11:25:00 EST, Height/Length Dosing, 105.2, kg, 09/24/23 11:25:00 EST, Weight Dosing Start Date: 11/14/23 Status: Ordered Start: 04-04-2023 testosterone c ypionate 200 mg/mL IM Yvonne 350 mg, IntraMuscular, q4wk, # 10 mL, Refills(s) 3, Pharmacy: [facility] #[id number], 190, cm, 07/03/22 15:34:00 EST, Height/Length Dosing, 110.5, kg, 07/03/22 15:34:00 EST, Weight Dosing Start Date: 04/04/23 Status: Ordered Start: 09-25-2022 testosterone c ypionate 200 mg/mL IM Yvonne 350 mg, IntraMuscular, q4wk, # 10 mL, Refills(s) 3, Pharmacy: [facility] #[id number], 190, cm, 07/03/22 15:34:00 EST, Height/Length Dosing, 110.5, kg, 07/03/22 15:34:00 EST, Weight Dosing Start Date: 09/25/22 Status: Ordered Start: 05-04-2022 testosterone c ypionate 200 mg/mL IM Yvonne 300 mg, IntraMuscular, q4wk, # 10 mL, Refills(s) 3, Pharmacy: [facility] #[id number], 190, cm, 01/16/22 15:25:00 EDT, Height/Length Dosing, 110, kg, 01/16/22 15:25:00 EDT, Weight Dosing Start Date: 05/04/22 Status: Ordered Vitamin D (20 sources) Start: 01-03-2021 Vitamin D Inte rnational_Unit, Oral, Daily, Refills(s) 0 Start Date: 01/03/21 Status: Ordered Start: 12-06-2020 Vitamin D Inte rnational_Unit, Oral, Daily, Refills(s) 0 Start Date: 12/06/20 Status: Ordered Completed/Discontinued Medications Medication Drug Class(es) Dates Sig (Normalized) Sig (Original) tadalafil 20 mg oral tablet (20 sources) Phosphodiesterase 5 Inhibitor Start: 07-03-2022 Cialis 20 mg Tab 20 mg = 1 tab(s), Oral, As Directed, Take one tab by mouth one to two hours prior to sexual activity. Do NOT exceed 20 mg (1 tab) in 24 hours., # 30 tab(s), Refills(s) 3, Pharmacy: [facility] [id number], 190, cm, 04/07/24 12:31:00 EDT, Height/Length Dosing, 102.7, kg, 04/07/24 12:31:00 EDT, Weight Dosing Start Date: 04/07/24 Status: Ordered Start: 01-16-2022 End: 05-16-2022 take 1 tablet by mouth every hour as needed Cialis 20 mg Tab 20 mg = 1 tab(s), Oral, As Directed, Take one tab prn one hour prior to sexual intercourse, X 30 day(s), # 30 tab(s), Refills(s) 3, Pharmacy: [facility] [id number], 190, cm, 01/16/22 15:25:00 EDT, Height/Length Dosing, 110, kg, 01/16/22 15:25:00 ED... Start Date: 01/16/22 Stop Date: 05/16/22 Status: Ordered Start: 01-03-2021 take 1 tablet by walter th every hour as needed Cialis 20 mg Tab 20 mg = 1 tab(s), Oral, As Directed, Take one tab prn one hour prior to sexual intercourse, # 30 tab(s), Refills(s) 3, Pharmacy: [facility] [id number], 190, cm, 01/03/21 15:37:00 EDT, Height/Length Dosing, 110, kg, 01/03/21 15:37:00 EDT, Weight Dosing Start Date: 01/03/21 Status: Ordered Problems Problem Classification Problem Date Documented Da te Episodic/Chronic Alcohol-related disorders (20 sources) Alcoholism 03-15-2019 Chronic Bacterial infection; unspecified site (20 sources) Chlamydial infection 03-15-2019 Episodic Essential hypertension (20 sources) Hypertensive disorder; Translations: [Essential (primary) hypertension] Onset: 04-25-2023 03-15-2019 Chronic Genitourinary symptoms and ill-defined conditions (20 sources) Nocturia 03-15-2019 Episodic Nutritional deficiencies (3 sources) Vitamin D deficiency; Translations: [Vitamin D deficiency, unspecified] Onset: 04-25-2023 04-25-2023 Chronic Other endocrine disorders (4 sources) Testicular hypofunction; Translations: [TESTICULAR HYPOFUNCTION] Onset: 06-18-2021 Chronic Other endocrine disorders (20 sources) Testicular hypofunction; Translations: [Testicular hypofunction] Onset: 11-21-2021 Chronic Other endocrine disorders (20 sources) Male hypogonadism 03-15-2019 Chronic Other male genital disorders (20 sources) 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 Other male genital disorders (5 sources) Male erectile dysfunction, unspecified; Translations: [Erectile dysfunction] Onset: 07-03-2022 Chronic Other nutritional; endocrine; and metabolic disorders (20 sources) Body mass index 30+ - obesity 09-15-2020 Chronic Other nutritional; endocrine; and metabolic disorders (3 sources) Morbid obesity; Translations: [Morbid (severe) obesity due to excess calories] Onset: 04-25-2023 04-25-2023 Chronic Other screening for suspected conditions (not mental disorders or infectious disease) (2 sources) Encounter for screening for malignant neoplasm of prostate; Translations: [Screening for malignant neoplasm done] Onset: 09-24-2023 Episodic Substance-related disorders (20 sources) Smoker 03-15-2019 Chronic Unclassified (13 sources) Patient encounter status 09-24-2023 Results Test Name Value Interpretation Reference Range Facil ity Ambulatory Visit Summaryon 0 05-06-2024 Ambulatory Visit Summary Ambulatory Visit Summary MORENO ROBIN :1980 Visit Date:05/06/2024 Ambulatory Visit Instructions Your Diagnosis Hypogonadism male Your Care Team Attending Physician - DEMETRIS TINEO PA-C Primary Care Physician - CAROLEE MANEDL This Is Your Medications List amlodipine-atorvasta tin (amlodipine-atorvast atin 10 mg-20 mg oral tablet) tadalafil (Cialis 20 mg Tab) testosterone (testosterone cypionate 200 mg/mL IM Yvonne) What to do next Scheduled Follow-Up Appointments Sunday 2:30 PM EDT With: Where: [facility] [address] [place] [address]- Sunday 2:30 PM EST With: Where: [facility] [address] [place] [address]- Sunday 2:30 PM EST With: Where: [facility] [address] [place] [address]- Sunday 9:00 AM EST With: Where: [facility] [place] [address] [place] [address]- Sunday 3:15 PM EST With: BELKYS HERNANDEZ, Zhao Barr Where: [facility] [address] [place] [address]- Medications What How Much When Instructions Unchanged amlodipine-atorvasta tin (amlodipine-atorvast atin 10 mg-20 mg oral tablet) By Mouth Every day Unchanged tadalafil (Cialis 20 mg Tab) 1 Tablets By Mouth As Directed Take one tab by mouth one to two hours prior to sexual activity. Do NOT exceed 20 mg (1 tab) in 24 hours. Unchanged testosterone (testosterone cypionate 200 mg/ mL IM Yvonne) 500 Milligram Intramuscular Every 4 weeks Medications and Immunizations Administered Given Depo-Testosterone 200 mg/mL intramuscular solution, 500 mg, IntraMuscular. For: Hypogonadism male Allergies No Known Medication Allergies Problems Ongoing - Any problem that you are currently receiving treatment for. Alcoholism BMI 30.0-30.9,adult Chlamydia Erectile dysfunction Hypertension Hypogonadism male Nocturia Screening PSA (prostate specific antigen) Smoker Patient Survey You may receive a survey via text or e-mail asking about your office visit. Please share your experience with us by completing your survey. We appreciate your feedback and thank you for choosing us for your care. Normal [facility] Ambulatory Visit Summaryon 0 - Ambulatory Visit Summary Ambulatory Visit Summary MORENO ROBIN :1980 Visit Date:04/07/2024 Ambulatory Visit Instructions Your Diagnosis Hypogonadism male Erectile dysfunction Screening PSA (prostate specific antigen) Your Care Team Attending Physician - Zhao SEARS MD Primary Care Physician - CAROLEE MANDEL This Is Your Medications List tadalafil (Cialis 20 mg Tab) testosterone (testosterone cypionate 200 mg/mL IM Yvonne) Contact prescribing physician if questions or concerns amlodipine-atorvasta tin (amlodipine-atorvast atin 10 mg-20 mg oral tablet) Discharge Vitals Temperature (Temporal Artery) 37 ?C Heart Rate (Peripheral) 89 Respiratory Rate 16 Blood Pressure 128/84 Height 190 cm Height 75 in Weight 102.7 kg Weight 225.94 lb BMI 28.45 What to do next Scheduled Follow-Up Appointments Sunday 2:30 PM EDT With: Where: [facility] [place] [address] [place] [address]- Sunday 2:30 PM EDT With: Where: [facility] [address] [place] [address]- Sunday 2:30 PM EST With: Where: [facility] [address] [place] [address]- Sunday 2:30 PM EST With: Where: [facility] [address] [place] [address]- Sunday 9:00 AM EST With: Where: [facility] [address] [place] [address]- Sunday 2:30 PM EST With: Where: [facility] [address] [place] [address]- Sunday 11:30 AM EST With: Zhao SEARS MD Where: [facility] [place] [address] [place] [address]- You Need to Schedule the Following Appointments Follow Up with Zhao SEARS MD, URL When: Where: [facility] [address], [place] [address]- Medications What How Much When Instructions Changed tadalafil (Cialis 20 mg Tab) 1 Tablets By Mouth As Directed Take one tab by mouth one to two hours prior to sexual activity. Do NOT exceed 20 mg (1 tab) in 24 hours. Pickup at [facility] [id number] Changed testosterone (testosterone cypionate 200 mg/ mL IM Yvonne) 500 Milligram Intramuscular Every 4 weeks Pickup at [facility] [id number] Unchanged amlodipine-atorvasta tin (amlodipine-atorvast atin 10 mg-20 mg oral tablet) By Mouth Every day Contact prescribing physician if questions or concerns Pharmacy Information [facility] [id number]: [address] [place], [place] [id number] [phone] Medications and Immunizations Administered Given Depo-Testosterone 200 mg/mL intramuscular solution, 400 mg, IntraMuscular. For: Hypogonadism male Allergies No Known Medication Allergies Problems Ongoing - Any problem that you are currently receiving treatment for. Alcoholism BMI 30.0-30.9,adult Chlamydia Erectile dysfunction Hypertension Hypogonadism male Nocturia Screening PSA (prostate specific antigen) Smoker Patient Survey You may receive a survey via text or e-mail asking about your office visit. Please share your experience with us by completing your survey. We appreciate your feedback and thank you for choosing us for your care. Education Materials Hypogonadism, Male Male hypogonadism is a condition [...] Diseases and conditions that affect the testicles (more content not included)... Normal [facility] Urology Office/Clinic Noteon 04-07-2024 Urology Office/Clinic Note Urology Office/Clinic Note Chief Complaint hypogonadism HPI Staff 6 mos w/ testosterone and PSA. Dx: hypogonadism, ED, screening PSA. *Cialis 20mg prn and Testosterone inj 400mg q4w. Last T inj given 03/11/24. PSA 03/01/24 - 0.55 T level 03/01/24 - 160 Dysuria: no Incomplete bladder emptying: no Hematuria: no Frequency: no Urgency: no Nocturia: rare maybe 1x a week Stream: good stream strong Leaking: no Post void dripping: no Wearing pads/ Depends: no Urge incontinence: no Stress incontinence: no Incontinence without Sensory Awareness: no Abdominal pain: none Flank pain: none Sexual complaints: no History of Present Illness Tests reviewed: reviewed T level, PSA I have reviewed the previous health record [...] See HPI. Physical Exam Vitals & Measurements T: 37 ?C(Temporal Artery) HR: 89(Peripheral) RR: 16 BP: 128/84 HT: 75 in HT: 190 cm WT: 102.7 kg WT: 225.94 lb BMI: 28.45 General Appearance: alert, no distress, well nourished, well developed male. Assessment/Plan 1. Hypogonadism male (E29.1: Testicular hypofunction) Testosterone Level (250 - 827) 01/06/22 - 418.7 06/27/22 - 213 03/26/23 - 251, HGB 16.8 09/10/23 - 436, HGB 15.7, HCT 45.1 03/01/24 - 160 *drawn on correct day 03/11/24 - last injection Receiving Testosterone IM 400 mg q4w. Symptomatic low T. Discussed options including either raise monthly dose or receive injections q2wks. Pt elects to raise monthly dose since this is more convenient. Follow up 6 mos with T level or sooner if needed. Pt understands and agrees with plan. -Increase T IM to 500 mg q4wks. Refill sent to [facility]. 2. Erectile dysfunction (N52.9: Male erectile dysfunction, unspecified) Cialis 20 mg PRN. Using wo complaint. Refill sent to [facility]. 3. Screening PSA (prostate specific antigen) (Z12.5: Encounter for screening for malignant neoplasm of prostate) PSA: 03/01/24 - 0.55 Pt unable to provide urine sample today. No urinary complaints. Voiding very well. PSA good. Will cont to monitor. Follow-up With When Contact Information BELKYS HERNANDEZ, Zhao Barr, URL [facility] [address], [place] [address]- Additional Instructions: 6 mos with T level Patient Education Hypogonadism, Male I, Rosalinda Cannon, personally scribed for Dr. Sears on 04/07/2024 13:27:59. . Documentation recorded by the scribe, Rosalinda Cannon, accurately reflects the services(s) I performed and decisions made by me. Authenticated by Dr. Sears on 04/07/2024 13:35:01. Problem List/Past Medical History Ongoing Alcoholism BMI [...] Tobacco Use:. Never Smokeless Tobacco Use:. Cigars, Household tobacco concerns: No. Yes, 04/07/2024 Family History Alcoholism: Father. Immunizations Vaccine Date [...] Recorded measles/mumps/rubell a virus vaccine 06/09/1982 Recorded Normal [facility] Comment on above: Result Comment: Elec tronically Signed By: Zhao SEARS MD\.br\Date and Time Signed: 04/07/24 13:35 EDT\.br\Electronically Co-Signed By: Rosalinda Cannon\.br\Date and Time Co-Signed: 04/07/24 13:28 EDT Ambulatory Visit Summaryon 0 03-11-2024 Ambulatory Visit Summary Ambulatory Visit Summary MORENO ROBIN :1980 Visit Date:03/11/2024 Ambulatory Visit Instructions Your Diagnosis Hypogonadism male Your Care Team Attending Physician - Zhao SEARS MD Primary Care Physician - FARHAT LEONARD CNP This Is Your Medications List amlodipine-atorvasta tin (amlodipine-atorvast atin 10 mg-20 mg oral tablet) tadalafil (Cialis 20 mg Tab) testosterone (testosterone cypionate 200 mg/mL IM Yvonne) What to do next Scheduled Follow-Up Appointments Sunday 11:45 AM EDT With: BELKYS HERNANDEZ, Zhao Barr Where: [facility] Ambulatory Visit Summaryon 0 12-18-2023 Ambulatory Visit Summary MORENO ROBIN :1980 Visit Date:12/18/2023 Ambulatory Visit Instructions Your [...] PM EDT With: Where: [facility] [address] [place] [address]- \.br\ Medications\.br\ What How Much When Instructions\.br\ Unchanged amlodipine-atorva statin (amlodipine-atorv astatin 10 mg-20 mg oral tablet) By Mouth [...] are currently receiving treatment for.\.br\ Alcoholism\.br\ BMI 30.0-30.9,adult\. br\ Chlamydia\.br\ Erectile dysfunction\.br\ Hypertension\.br\ Hypogonadism male\.br\ Nocturia\.br\ Screening PSA (prostate specific antigen)\.br\ Smoker\.br\ Patient Survey\.br\ You may receive a survey via text or e-mail asking about your office visit. Please share your experience with us by completing your survey. We appreciate your feedback and thank you for choosing us for your care.\.br\ \.br\ [facility] Ambulatory Visit Summaryon 0 11-20-2023 Ambulatory Visit Summary MORENO ROBIN :1980 Visit Date:11/20/2023 Ambulatory Visit Instructions Your Diagnosis Hypogonadism male Your Care Team Attending Physician - BELKYS HERNANDEZ, Zhao Barr Primary Care Physician - FARHAT LEONARD CNP This Is Your Medications List amlodipine-atorvasta tin (amlodipine-atorvast atin 10 mg-20 mg oral tablet) tadalafil (Cialis 20 mg Tab) testosterone (testosterone cypionate 200 mg/mL IM Yvonne) What to do next Scheduled Follow-Up Appointments Sunday 3:00 PM EDT With: Where: [facility] Normal [address] [place] [address]- \.br\ Medications\.br\ What How Much When Instructions\.br\ Unchanged amlodipine-atorva statin (amlodipine-atorv astatin 10 mg-20 mg oral tablet) By Mouth [...] are currently receiving treatment for.\.br\ Alcoholism\.br\ BMI 30.0-30.9,adult\. br\ Chlamydia\.br\ Erectile dysfunction\.br\ Hypertension\.br\ Hypogonadism male\.br\ Nocturia\.br\ Screening PSA (prostate specific antigen)\.br\ Smoker\.br\ Patient Survey\.br\ You may receive a survey via text or e-mail asking about your office visit. Please share your experience with us by completing your survey. We appreciate your feedback and thank you for choosing us for your care.\.br\ \.br\ [facility] Ambulatory Visit Summaryon 0 10-22-2023 Ambulatory Visit Summary SERENAMORENO IBARRA :1980 Visit Date:10/22/2023 Ambulatory Visit Instructions Your Diagnosis Hypogonadism male Your Care Team Attending Physician - BELKYS HERNANDEZ, Zhao Barr Primary Care Physician - FARHAT LEONARD CNP This Is Your Medications List amlodipine-atorvasta tin (amlodipine-atorvast atin 10 mg-20 mg oral tablet) tadalafil (Cialis 20 mg Tab) testosterone (testosterone cypionate 200 mg/mL IM Yvonne) What to do next Scheduled Follow-Up Appointments Sunday 3:00 PM EDT Where: [facility] Ambulatory Visit Summaryon 0 09-24-2023 Ambulatory Visit Summary SERENAMORENO IBARRA :1980 Visit Date:09/24/2023 Ambulatory Visit Instructions Your [...] Sunday 10:30 AM EST Where: [facility] Ambulatory Visit Summary SERENAMORENO IBARRA :1980 Visit Date:09/24/2023 Ambulatory Visit Instructions Your [...] Sunday 10:30 AM EST Where: [facility] Normal [facility] Patient Educationon 09-24-19 24 Patient Education Urology [...] Follow these instructions at home: ? Take [id number] and prescription medicines only as told by [...] 04/14/2021 Document (more content not included)... Normal [facility] Urology Office/Clinic Noteon 09-24-2023 Urology Office/Clinic Note [...] q4w. Pt to call for refills, uses [facility] in [place]. -F/u with T level in 6 mos [...] 6 mos Follow-up With When Contact Information BELKYS HERNANDEZ, Zhao Barr, URL [facility] [address], [place] [phone] Additional Instructions: 6 mos w/ T level and PSA Patient Education Hypogonadism, Male I, Shaina Sheriff, personally scribed for Dr. Sears on 09/24/2023 12:32:26. . Documentation recorded by the debbiibShaina hooper, accurately reflects the services(s) I performed and [...] Urine Dip (more content not included)... Normal [facility] Comment on above: Result Comment: Elec tronically Signed By: BELKYS HERNANDEZ, Zhao Renteria.martha\Date and Time Signed: 09/24/23 12:34 EST\.br\Electronically Co-Signed By: Shaina Sheriff\.br\Date and Time Co-Signed: 09/24/23 12:33 EST Testosteroneon 01-06-2022 TESTOS 418.70 ng/dL Normal 249.00-836.00 [facility] [employer] Comment on above: Performed By: #### T EST #### [facility] [address], [place] [id number] Complete Blood Count with Au to Diffon 12-23-2021 Basophils (Bld) [#/Vol] 0.02 10*3/uL Normal 0.00-0.20 [facility] [employer] Comment on above: Performed By: #### F MITCH RONDON, CBCAD #### [facility] [address], [place] [id number] Basophils/100 WBC (Bld) 0.5 % Normal [facility] [employer] Comment on above: Performed By: #### F MITCH RONDON, CBCAD #### [facility] [address], [place] [phone] Eosinophils (Bld) [#/Vol] 0.05 10*3/uL Normal 0.02-0.50 [facility] [employer] Comment on above: Performed By: #### F MITCH RONDON, CBCAD #### [facility] [address], [place] [id number] Eosinophils/100 WBC (Bld) 1.3 % Normal [facility] [employer] Comment on above: Performed By: #### F MITCH RONDON, CBCAD #### [facility] [address], [place] [id number] Erythrocyte distribution width (RBC) [Ratio] 15.3 % High 11.0-15.0 [facility] [employer] Comment on above: Performed By: #### F MITCH RONDON, CBCAD #### [facility] [address], [place] [id number] Hematocrit (Bld) [Volume fraction] 43.6 % Normal 38.5-50.0 [facility] [employer] Comment on above: Performed By: #### F MITCH RONDON, CBCAD #### [facility] [address], [place] [id number] Hemoglobin (Bld) [Mass/Vol] 15.3 g/dL Normal 13.0-17.1 [facility] Comment on above: Performed By: #### F MITCH RONDON, CBCAD #### [facility] [address], [place] [id number] Lymphocytes (Bld) [#/Vol] 1.9 10*3/uL Normal 0.9-3.9 [facility] Comment on above: Performed By: #### F MITCH RONDON, CBCAD #### [facility] [address], [place] [id number] Lymphocytes/100 WBC (Bld) 47.2 % Normal [facility] Comment on above: Performed By: #### F MITCH RONDON, CBCAD #### [facility] [address], [place] [id number] MCH (RBC) [Entitic mass] 27.1 pg Normal 27.0-33.0 [facility] Comment on above: Performed By: #### F MITCH RONDON, CBCAD #### [facility] [address], [place] [id number] MCHC (RBC) [Mass/Vol] 35.1 g/dL Normal 32.0-36.0 [facility] Comment on above: Performed By: #### F MITCH RONDON, CBCAD #### [facility] [address], [place] [id number] MCV (RBC) [Entitic vol] 77 fL Low 80-100 [facility] Comment on above: Performed By: #### F MITCH RONDON, CBCAD #### [facility] [address], [place] [id number] Monocytes (Bld) [#/Vol] 0.3 10*3/uL Normal 0.2-0.9 [facility] Comment on above: Performed By: #### F MITCH RONDON, CBCAD #### [facility] [address], [place] [id number] Monocytes/100 WBC (Bld) 8.6 % Normal [facility] Comment on above: Performed By: #### F MITCH RONDON, CBCAD #### [facility] [address], [place] [id number] Neutrophils (Bld) [#/Vol] 1.7 10*3/uL Normal 1.5-7.8 [facility] Comment on above: Performed By: #### F MITCH RONDON, CBCAD #### [facility] [address] [facility] [place] [id number] Neutrophils/100 WBC (Bld) 42.4 % Normal [facility] Comment on above: Performed By: #### F MITCH RONDON, CBCAD #### [facility] [address], [place] [id number] Platelet mean volume (Bld) [Entitic vol] 11.80 fL Normal 7.50-12.50 [facility] Comment on above: Performed By: #### F MITCH RONDON, CBCAD #### [facility] [address], [place] [id number] Platelets (Bld) [#/Vol] 217 10*3/uL Normal 140-400 [facility] Comment on above: Performed By: #### F MITCH RONDON, CBCAD #### [facility] [address], [place] [id number] RBC (Bld) [#/Vol] 5.64 10*6/uL Normal 4.20-5.80 [facility] Comment on above: Performed By: #### F MITCH RONDON, CBCAD #### [facility] [address], [place] [id number] RDW-SD 41.9 fL Normal 37.0-50.0 [facility] Comment on above: Performed By: #### F MITCH RONDON, CBCAD #### [facility] [address], [place] [id number] WBC (Bld) [#/Vol] 3.9 10*3/uL Normal 3.8-11.0 [facility] [place] Comment on above: Performed By: #### F MITCH RONDON, CBCAD #### [facility] [address], [place] [id number] Ferritinon 12-23-2021 FERR 204.8 ng/mL Normal 30.0-400.0 [facility] Comment on above: Performed By: #### F MITCH RONDON Prof, CBCAD #### [facility] [address], [place] [id number] Iron Profileon 12-23-2021 %FESAT 22 % Normal 15-60 [facility] Comment on above: Performed By: #### F ALCON FE Prof, CBCAD #### [facility] [address], [place] [id number] FE 65 ug/dL Normal 50-180 [facility] [employer] Technician Comment on above: Result Comment: Refe rence range change 07/13/2017. Prior reference range F 37-145 ug/dL, M 59-158 ug/dL. Performed By: #### F MITCH RONDON, CBCAD #### [facility] [address], [place] [id number] TIBC 292 ug/dL Normal 250-425 [facility] [employer] Comment on above: Performed By: #### F MITCH RONDON, CBCAD #### [facility] [address], [place] [id number] UIBC 227 ug/dL Normal 112-347 [facility] [employer] Comment on above: Performed By: #### F MITCH RONDON, CBCAD #### [facility] [address], [place] [id number] Complete Blood Count with Au to Diffon 11-22-2021 Erythrocyte distribution width (RBC) [Ratio] 14.9 % Normal 11.0-15.0 [facility] [employer] Comment on above: Performed By: #### L NANI LEMUS MDIFF, VITD, CBCAD #### [facility] [address], [place] [id number] Hematocrit (Bld) [Volume fraction] 43.7 % Normal 38.5-50.0 [facility] Comment on above: Performed By: #### L NANI LEMUS MDIFF, VITD, CBCAD #### [facility] [address], [place] [id number] Hemoglobin (Bld) [Mass/Vol] 15.1 g/dL Normal 13.0-17.1 [facility] [employer] Comment on above: Performed By: #### L IPD, CMP, MDIFF, VITD, CBCAD #### [facility] [address], [place] [id number] MCH (RBC) [Entitic mass] 26.6 pg Low 27.0-33.0 [facility] Comment on above: Performed By: #### L IPD, CMP, MDIFF, VITD, CBCAD #### [facility] [address], [place] [id number] MCHC (RBC) [Mass/Vol] 34.6 g/dL Normal 32.0-36.0 [facility] Comment on above: Performed By: #### L IPD, CMP, MDIFF, VITD, CBCAD #### [facility] [address], [place] [id number] MCV (RBC) [Entitic vol] 77 fL Low 80-100 [facility] Comment on above: Performed By: #### L IPD, CMP, MDIFF, VITD, CBCAD #### [facility] [address], [place] [id number] Platelet mean volume (Bld) [Entitic vol] 11.30 fL Normal 7.50-12.50 [facility] Comment on above: Performed By: #### L IPD, CMP, MDIFF, VITD, CBCAD #### [facility] [address], [place] [id number] Platelets (Bld) [#/Vol] 173 10*3/uL Normal 140-400 [facility] [employer] Comment on above: Performed By: #### L IPD, CMP, MDIFF, VITD, CBCAD #### [facility] [address], [place] [id number] RBC (Bld) [#/Vol] 5.67 10*6/uL Normal 4.20-5.80 [facility] Specialist Comment on above: Performed By: #### L IPD, CMP, MDIFF, VITD, CBCAD #### [facility] [address], [place] [id number] RDW-SD 40.8 fL Normal 37.0-50.0 [facility] Comment on above: Performed By: #### L IPD, CMP, MDIFF, VITD, CBCAD #### [facility] [address], [place] [id number] REFLEX Manual Differential Normal [facility] Comment on above: Performed By: #### L IPD, CMP, MDIFF, VITD, CBCAD #### [facility] [address], [place] [id number] WBC (Bld) [#/Vol] 3.5 10*3/uL Low 3.8-11.0 [facility] Digital [employer] Technician Comment on above: Performed By: #### L IPD, CMP, MDIFF, VITD, CBCAD #### [facility] [address], [place] [id number] Comprehensive Metabolic Pane kei 11-22-2021 Albumin [Mass/Vol] 5.0 g/dL Normal 3.6-5.1 [facility] [employer] Techn[facility] Comment on above: Performed By: #### L IPD, CMP, MDIFF, VITD, CBCAD #### [facility] [address], [place] [id number] Albumin/Globulin [Mass ratio] 2.3 {ratio} Normal 1.0-2.5 [facility] Comment on above: Performed By: #### L MARIAH, CMP, MDIFF, VITD, CBCAD #### [facility] [address], [place] [id number] ALP [Catalytic activity/Vol] 46 U/L Normal 40-129 [facility] Comment on above: Performed By: #### L IPD, CMP, MDIFF, VITD, CBCAD #### [facility] [address], [place] [id number] ALT [Catalytic activity/Vol] 24 U/L Normal 9-46 [facility] Comment on above: Result Comment: 07/27 Female reference range changed. Performed By: #### L IPD, CMP, MDIFF, VITD, CBCAD #### [facility] [address], [place] [id number] Anion gap [Moles/Vol] 18 mmol/L Normal 12-20 [facility] Comment on above: Result Comment: Effe ctive 09/01/2019 reference range changed. Performed By: #### L IPD, CMP, MDIFF, VITD, CBCAD #### [facility] [address], [place] [id number] AST [Catalytic activity/Vol] 20 U/L Normal 10-40 [facility] Comment on above: Performed By: #### L IPD, CMP, MDIFF, VITD, CBCAD #### [facility] [address], [place] [id number] Bilirubin [Mass/Vol] 0.62 mg/dL Normal 0.30-1.20 [facility] Comment on above: Performed By: #### L IPD, CMP, MDIFF, VITD, CBCAD #### [facility] [address], [place] [id number] BUN/CREA 17 Ratio Normal 6-22 [facility] Comment on above: Performed By: #### L IPD, CMP, MDIFF, VITD, CBCAD #### [facility] [address], [place] [id number] Calcium [Mass/Vol] 10.2 mg/dL Normal 8.6-10.2 [facility] [place] Comment on above: Performed By: #### L IPD, CMP, MDIFF, VITD, CBCAD #### [facility] [address], [place] [id number] Chloride [Moles/Vol] 101 mmol/L Normal 98-107 [facility] Comment on above: Performed By: #### L IPD, CMP, MDIFF, VITD, CBCAD #### [facility] [address], [place] [id number] CO2 [Moles/Vol] 24 mmol/L Normal 20-31 [facility] Comment on above: Performed By: #### L IPD, CMP, MDIFF, VITD, CBCAD #### [facility] [address], [place] [id number] Creatinine [Mass/Vol] 1.0 mg/dL Normal 0.7-1.4 [facility] Comment on above: Performed By: #### L IPD, CMP, MDIFF, VITD, CBCAD #### [facility] [address] [facility] [place] [id number] eGFRAA 96 mL/min/1.73m2 Normal >60 [place] [facility] [employer] Technician Comment on above: Performed By: #### L MARIAH, NANI, MDIFF, VITD, CBCAD #### [facility] [address], [place] [id number] eGFRNAA 79 mL/min/1.73m2 Normal >60 [facility] [employer] Technician Comment on above: Performed By: #### L IPD, CMP, MDIFF, VITD, CBCAD #### [facility] [address], [place] [id number] Globulin (S) [Mass/Vol] 2.2 g/dL Normal 1.9-3.7 [facility] [employer] Technician Comment on above: Performed By: #### L MARIAH, NANI, MDIFF, VITD, CBCAD #### [facility] [address], [place] [id number] Glucose [Mass/Vol] 80 mg/dL Normal 65-99 [facility] [employer] Technician Comment on above: Result Comment: For FASTING Glucose --- ADA reference ranges: Normal 65-99 mg/dl Prediabetes 100-125 Diabetes >/= 126 Performed By: #### L MARIAH, NANI, MDIFF, VITD, CBCAD #### [facility] [address], [place] [id number] Potassium [Moles/Vol] 4.3 mmol/L Normal 3.5-5.5 [facility] Digital [employer] Technician Comment on above: Performed By: #### L MARIAH, NANI, MDIFF, VITD, CBCAD #### [facility] [address], [place] [id number] Protein [Mass/Vol] 7.2 g/dL Normal 6.1-8.1 [facility] [employer] Technician Comment on above: Performed By: #### L MARIAH, CMP, MDIFF, VITD, CBCAD #### [facility] [address] [facility] [place] [id number] Sodium [Moles/Vol] 139 mmol/L Normal 135-146 [facility] [employer] Technician Comment on above: Performed By: #### L MARIAH, NANI, MDIFF, VITD, CBCAD #### [facility] [address] [facility] [place] [id number] Urea nitrogen [Mass/Vol] 17 mg/dL Normal 7-25 [facility] [employer] Technician Comment on above: Performed By: #### L MARIAH, NANI, MDSHIVA, VITD, CBCAD #### [facility] [address], [place] [id number] Lipid Panelon 11-22-2021 Cholesterol [Mass/Vol] 186 mg/dL Normal 125-200 [facility] [employer] Technician Comment on above: Result Comment: Low risk < 200mg/dL Borderline risk 201-239 mg/dl High risk > or equal to 240 Performed By: #### L MARIAH, CMP, MDSHIVA, VITD, CBCAD #### [facility] [address] [facility] [place] [id number] Cholesterol in HDL [Mass/Vol] 44 mg/dL Normal >40 [facility] [employer] Technician Comment on above: Result Comment: High Cardiovascular Risk HDL <40 mg/dL Low Cardiovascular Risk HDL > or equal to 60 mg/dl Performed By: #### L MARIAH, NANI, MDSHIVA, VITD, CBCAD #### [facility] [address], [place] [id number] Cholesterol in LDL [Mass/Vol] 130 mg/dL Normal [facility] Comment on above: Result Comment: LDL ATP III CLASSIFICATION LDL less than 100 mg/dl Optimal LDL 100-129 mg/dl Near or above optimal LDL 130-159 Borderline high LDL 160-189 High LDL greater than 189 mg/dl Very High Performed By: #### L MARIAH, NANI, MDSIHVA, VITD, CBCAD #### [facility] [address], [place] [id number] Cholesterol in VLDL [Mass/Vol] 12 mg/dL Normal [facility] Digital [employer] Technician Comment on above: Performed By: #### L MARIAH, NANI, MDSHIVA, VITD, CBCAD #### [facility] [address] [facility] [place] [id number] Cholesterol.total/C holesterol in HDL [Mass ratio] 4 {ratio} Normal [facility] Digital [employer] Technician Comment on above: Performed By: #### L MARIAH, NANI, MDSHIVA, VITD, CBCAD #### [facility] [address] [id number] Triglyceride [Mass/Vol] 61 mg/dL Normal 30-150 [facility] Digital [employer] Technician Comment on above: Result Comment: TRIG ATPIII CLASSIFICATIONS TRIG less than 150 mg/dl Normal TRIG 150-199 mg/dl Borderline High TRIG 200-500 mg/dl High TRIG greather than 500 mg/dl Very High Performed By: #### L NNAI LEMUS MDIFF, IRA, CBCAD #### [facility] [address], [place] [id number] Manual Differentialon 2021 BAND 0.0 % Normal [facility] Specialist Comment on above: Performed By: #### L NANI LEMUS MDIFF, VITD, CBCAD #### [facility] [address], [place] [id number] BANDABS 0.0 K/uL Normal [facility] Comment on above: Performed By: #### L NANI LEMUS MDIFF, VITD, CBCAD #### [facility] [address], [place] [id number] BASO 0.0 % Normal [facility] Comment on above: Performed By: #### L NANI LEMUS MDIFF, VITMookie, CBCAD #### [facility] [address], [place] [id number] BASOABS 0.0 K/uL Normal 0.0-0.2 [facility] [employer] Technician Comment on above: Performed By: #### L NANI LEMUS MDIFF, VITD, CBCAD #### [facility] [address], [place] [id number] EOS 1.0 % Normal [facility] [employer] Technician Comment on above: Performed By: #### L NANI LEMUS MDIFF, VITD, CBCAD #### [facility] [address], [place] [id number] EOSABS 0.0 K/uL Normal 0.0-0.5 [facility] [employer] Technician Comment on above: Performed By: #### L NANI LEMUS MDIFF, VITD, CBCAD #### [facility] [address], [place] [id number] LYMPH 64.0 % Normal [facility] [employer] Technician Comment on above: Performed By: #### L NANI LEMUS MDIFF, VITMookie, CBCAD #### [facility] [address], [place] [id number] LYMPHABS 2.3 K/uL Normal 0.9-3.9 [facility] Comment on above: Performed By: #### L IPD, CMP, MDIFF, VITD, CBCAD #### [facility] [address], [place] [id number] LYMPHATYP 2.0 % Normal 0.9-3.9 [facility] [employer] Technician Comment on above: Performed By: #### L IPD, CMP, MDIFF, VITD, CBCAD #### [facility] [address], [place] [id number] MONO 8.0 % Normal [facility] Comment on above: Performed By: #### L IPD, CMP, MDIFF, VITD, CBCAD #### [facility] [address], [place] [id number] MONOABS 0.3 K/uL Normal 0.2-0.9 [facility] Comment on above: Performed By: #### L IPD, CMP, MDIFF, VITD, CBCAD #### [facility] [address], [place] [id number] RBCMORPH Normal Normal [facility] Specialist Comment on above: Performed By: #### L IPD, CMP, MDIFF, VITD, CBCAD #### [facility] [address], [place] [id number] SEG 25.0 % Normal [facility] Specialist Comment on above: Performed By: #### L IPD, CMP, MDIFF, VITD, CBCAD #### [facility] [address], [place] [id number] SEGABS 0.9 K/uL Low 1.5-7.8 [facility] Digital [employer] Technician Comment on above: Performed By: #### L IPD, CMP, MDIFF, VITD, CBCAD #### [facility] [address], [place] [id number] WBC 3.5 K/uL Low 3.8-11.0 [facility] Digital [employer] Technician Comment on above: Performed By: #### L IPD, CMP, MDIFF, VITD, CBCAD #### [facility] [address], [place] [id number] Vitamin D 25-OHon 11-22-2021 VIT D 25 OH 71 ng/ml Normal >29 [facility] Digital Camera Technician Comment on above: Result Comment: Itzel min D Status Deficiency <20 ng/mL Insufficiency 20-29 ng/mL Optimal 30-100 ng/mL Possible Toxicity >=150 ng/mL Performed By: #### L IPD, CMP, MDIFF, VITD, CBCAD #### [facility] [address] [place], [place] [id number] TESTOSTERONE, TOTALon 2020 Testosterone [Mass/Vol] 402 ng/dL Normal 264-916 [facility] Comment on above: Result Comment: Adul t male reference interval is based on a population of healthy nonobese males (BMI <30) between 19 and 39 years old. [place] et.al. JCEM 2017,102;7806-5169. PMID: [id number]. Performed By: #### T ESTTOT #### [facility] [address] [place], [place] [address] Dr[address] Efraín Guevara Vital Signs Date Time Vital Sign Value Performing Clinician Facility 07-16-2024 16:04-0500 Body height 189.[address] [employer]ER Work Phone: [facility] 07-16-2024 16:04-0500 Body mass index (BMI) [Ratio] 31.39 kg/m2 Carolee [address] [employer]ER Work Phone: [facility] 07-16-2024 16:04-0500 Body temperature 97.39 [degF] Carolee [address] P[employer]EN[employer] FIRER Work Phone: [facility] 07-16-2024 16:04-0500 Body weight 112.[address] P[employer]ER Work Phone: [facility] 07-16-2024 16:04-0500 Diastolic blood pressure 88 mm[Hg] Carolee [address] P[employer]ER Work Phone: [facility] 07-16-2024 16:04-0500 Heart rate 87 /min Carolee [address] P[employer]EN[employer]ER Work Phone: [facility] 07-16-2024 16:04-0500 SaO2% (BldA) [Mass fraction] 99 % [address]e [address] P[employer]EN[employer] FIRER Work Phone: [facility] 07-16-2024 16:04-0500 Systolic blood pressure 134 mm[Hg] Carolee [address] P[employer]ENGER [employer]ER Work Phone: [facility] 04-07-2024 12:27-0400 Blood Pressure Location Zhao SEARS [facility] 04-07-2024 12:27-0400 Body temperature 98.6 [degF] Zhao SEARS [facility] 04-07-2024 12:27-0400 Diastolic blood pressure 84 mm[Hg] Zhao SEARS [facility] 04-07-2024 12:27-0400 Heart rate 89 /min Zhao SEARS [facility] 04-07-2024 12:27-0400 Respiratory rate 16 /min Zhao SEARS [facility] 04-07-2024 12:27-0400 Systolic blood pressure 128 mm[Hg] Zhao SEARS [facility] 09-24-2023 11:11-0500 Blood Pressure Location Zhao SEARS [facility] 09-24-2023 11:11-0500 Diastolic blood pressure 83 mm[Hg] Zhao SEARS [facility] 09-24-2023 11:11-0500 Heart rate 71 /min Zhao SEARS [facility] 09-24-2023 11:11-0500 Respiratory rate 16 /min Zhao SEARS [facility] 09-24-2023 11:11-0500 Systolic blood pressure 137 mm[Hg] Zhao SEARS [facility] 04-09-2023 15:36-0400 Blood Pressure Location Zhao SEARS [facility] 04-09-2023 15:36-0400 Diastolic blood pressure 82 mm[Hg] Zhao SEARS [facility] 04-09-2023 15:36-0400 Heart rate 78 /min Zhaocaleb SEARS [facility] 04-09-2023 15:36-0400 Systolic blood pressure 138 mm[Hg] Zhaocaleb SEARS [facility] 07-03-2022 15:24-0500 Blood Pressure Location Zhaocaleb SEARS [facility] 07-03-2022 15:24-0500 Diastolic blood pressure 88 mm[Hg] Zhaocaleb SEARS [facility] 07-03-2022 15:24-0500 Heart rate 70 /min Zhaocaleb SEARS [facility] 07-03-2022 15:24-0500 Respiratory rate 16 /min Zhao SEARS [facility] 07-03-2022 15:24-0500 Systolic blood pressure 135 mm[Hg] Zhao SEARS [facility] Encounters Encounter Date Encounter Type Care Provider Facility Start: 10-20-2024 ambulatory Zhao Arguetai ty:[facility] Start: 02-21-2025 ambulatory Zhao Arguetai [facility] Start: 09-22-2024 End: 09-22-2024 ambulatory Zhao SEARS Facility:[facility] Start: 09-22-2024 End: 09-22-2024 Patient encounter procedure Zhao SEARS [facility] Start: 08-26-2024 End: 08-26-2024 ambulatory DEMETRIS E NOMAN Facility:[facility] Start: 08-26-2024 End: 08-26-2024 Patient encounter procedure DEMETRIS E NOMAN [facility] Start: 07-29-2024 End: 07-29-2024 ambulatory DEMETRIS E NOMAN Facility:[facility] Start: 07-29-2024 End: 07-29-2024 Patient encounter procedure DEMETRIS E NOMAN [facility] Start: 07-16-2024 End: 07-16-2024 Office outpatient visit [address] [employer] Work Phone: [facility] Comment on above: Primary hypertension (CMS/HCC) Start: 07-16-2024 End: 07-16-2024 ambulatory CAROLEE R LAUSE Not Available Start: 07-16-2024 End: 07-16-2024 Bamboo flowsheet Carolee R [address] P[employer]ENGER [employer]ER Work Phone: [facility] Start: 07-16-2024 End: 07-16-2024 Bamboo flowsheet Carolee R [address] P[employer]ENGER FIRER Work Phone: [facility] Start: 07-01-2024 End: 07-01-2024 [facility]ulatory [facility] Start: 07-01-2024 End: 07-01-2024 Patient encounter [facility] Start: 06-03-2024 End: 06-03-2024 ambulatory DEMETRIS Heidi NOMAN Facility:[facility] Start: 06-03-2024 End: 06-03-2024 Patient encounter procedure DEMETRIS Heidi TINEO [facility] Start: 05-06-2024 End: 05-06-2024 ambulatory DEMETRIS Heidi NOMAN Facility:[facility] Start: 05-06-2024 End: 05-06-2024 Patient encounter procedure DEMETRIS Heidi TINEO [facility] Start: 04-07-2024 End: 04-07-2024 ambulatory Zhao SEARS Facility:[facility] Start: 04-07-2024 End: 04-07-2024 Patient encounter procedure Zhao SEARS [facility] Start: 03-11-2024 End: 03-11-2024 ambulatory Zhao SEARS Facility:[facility] Start: 03-11-2024 End: 03-11-2024 Patient encounter procedure [facility] Start: 02-12-2024 End: 02-12-2024 ambulatory Zhao SEARS Facility:[facility] Start: 02-12-2024 End: 02-12-2024 Patient encounter procedure Zhao R SEARS [facility] Start: 01-16-2024 End: 01-16-2024 ambulatory CAROLEE MANDEL Not Available Start: 2024 End: 2024 ambulatory DEMETRIS Heidi NOMAN Facility:[facility] Start: 2024 End: 2024 Patient encounter procedure DEMETRIS TINEO [facility] Start: 12-18-2023 End: 12-18-2023 ambulatory Cindy Calderon Galpedro Facility:[facility] Start: 12-18-2023 End: 12-18-2023 Patient encounter procedure Cindy J Galea [facility] Start: 11-20-2023 End: 11-20-2023 ambulatory Zhao SEARS Facility:[facility] Start: 11-20-2023 End: 11-20-2023 Patient encounter procedure Zhao SEARS [facility] Start: 10-22-2023 End: 10-22-2023 ambulatory Zhao SEARS Facility:[facility] Start: 09-24-2023 End: 09-24-2023 ambulatory Zhao SEARS Facility:[facility] Start: 09-24-2023 End: 09-24-2023 Patient encounter procedure Zhao SEARS [facility] Start: 08-28-2023 End: 08-28-2023 Patient encounter procedure Zhao SEARS [facility] Start: 07-30-2023 End: 07-30-2023 Patient encounter procedure Zhao SEARS [facility] [facility] Start: 07-02-2023 End: 07-02-2023 Patient encounter procedure Zhao SEARS [facility] Start: 05-07-2023 End: 05-07-2023 Patient encounter procedure Zhao SEARS [facility] Start: 04-09-2023 End: 04-09-2023 Patient encounter procedure Zhao SEARS [facility] Start: 03-12-2023 End: 03-12-2023 Patient encounter procedure Zhao SEARS [facility] Start: 02-12-2023 End: 02-12-2023 Patient encounter procedure Zhao SEARS [facility] Start: 12-18-2022 End: 12-18-2022 Patient encounter procedure Zhao SEARS [facility] Start: 11-20-2022 End: 11-20-2022 Patient encounter procedure Zhao SEARS [facility] Start: 10-23-2022 End: 10-23-2022 Patient encounter procedure Zhao SEARS [facility] Start: 08-29-2022 End: 08-29-2022 Patient encounter procedure DEMETRIS TINEO [facility] Start: 07-31-2022 End: 07-31-2022 Patient encounter procedure Zhao R SEARS [facility] [employer] Start: 07-03-2022 End: 07-03-2022 Patient encounter procedure Zhao Barr SEARS [facility] [place] Start: 06-05-2022 End: 06-05-2022 Patient encounter procedure Zhao R BELKYS [facility] [employer] Start: 05-08-2022 End: 05-08-2022 Patient encounter procedure Zhao R BELKYS [facility] Start: 04-10-2022 End: 04-10-2022 Patient encounter procedure Zhao Barr SEARS [facility] Start: 03-13-2022 End: 03-13-2022 Patient encounter procedure Zhao R SEARS [facility] [employer] Start: 02-13-2022 End: 02-13-2022 Patient encounter procedure Zhao R SEARS [facility] Start: 12-23-2021 End: 12-23-2021 Patient encounter procedure Pipe JAMA [facility] [place] Start: 11-21-2021 End: 11-21-2021 Patient encounter procedure Zhao SEARS [facility] Start: 06-18-2021 End: 06-19-[address] ZHAO SEARS Facility:[facility]1 Plan of Treatment Date Care Activity Detail Author Start: 02-23-2025 Influenza vaccination Influenza Vacc ine (#1) [facility] Comment on above: Postponed from 04/27 (Patient Refused) Start: 07-16-2024 End: 07-16-2024 Patient encounter procedure 07/16/2024 4:20 PM EST [facility] [address] [place] [address] [address], ROAD PASSENGER FIRER [address] [place] [address] Arrived [facility] Comment on above: Arrived Start: 04-27-2024 Influenza vaccination Influenza Vacc ine (#1) [facility] Immunizations Immunization Date Immunization Notes Care Provider Fa cility 07-04-2021 SARS-CoV-2 mRNA (tozinameran 5y-11y) vaccine Zhao BELKYS [facility] 06-08-2021 SARS-CoV-2 (COVID-19 ) mRNA BNT-162b2 vax Zhao BELKYS [facility] 06-02-2021 SARS-CoV-2 mRNA (tozinameran 5y-11y) vaccine Zhao BELKYS [facility] 05-18-2021 SARS-CoV-2 (COVID-19 ) mRNA BNT-162b2 vax Zhao BELKYS [facility] 10-27-2020 tetanus and diphther ia toxoids, adsorbed, preservative free, for adult use (2 Lf of tetanus toxoid and 2 Lf of diphtheria toxoid) Zhao SEARS [facility] 04-05-2000 Td(adult) unspecifie d formulation Zhao SEARS [facility] 03-16-1994 measles, mumps and rubella virus vaccine Zhao SEARS [facility] 12-18-1985 diphtheria, tetanus toxoids and pertussis vaccine Carolee Lause [address] [employer] Work Phone: [facility] 12-18-1985 tetanus toxoid, redu isabel diphtheria toxoid, and acellular pertussis vaccine, adsorbed Zhao SEARS [facility] 12-18-1985 trivalent poliovirus vaccine, live, oral Carolee Lause [address] [employer] Work Phone: [facility] 06-09-1982 diphtheria, tetanus toxoids and pertussis vaccine Carolee Lause [address] P[employer] Work Phone: [facility] 06-09-1982 measles, mumps and rubella virus vaccine Zhao SEARS [facility] 06-09-1982 trivalent poliovirus vaccine, live, oral Carolee Lause [address] P[employer] Work Phone: [facility] 04-04-1982 diphtheria, tetanus toxoids and pertussis vaccine Carolee Lause [address] P[employer]EN[employer]ER Work Phone: [facility] 04-04-1982 trivalent poliovirus vaccine, live, oral Carolee Lause [address] P[employer] Work Phone: [facility] 1981 diphtheria, tetanus toxoids and pertussis vaccine Carolee Lause [address] [employer] Work Phone: [facility] 1981 trivalent poliovirus vaccine, live, oral Carolee Lause [address] P[employer] Work Phone: [facility] Payers Date Payer Category Payer [facility] [id number] 2022 Unknown [id number] 1981 Unknown [id number] [id number]. 2.593 1981 Unknown [id number] 2.16.840.1.847659.3.579. 2.1258 1981 Unknown [id number] 2.16.840.1.978271.3.579. 2.1258 1981 Unknown [id number] 2.16.840.1.325634.3.579. 2. 1981 Unknown [id number] 2.16.840.1.971097.3.579. 2. 1981 Unknown [id number] 2.16.840.1.872289.3.579. 2. 1981 Unknown [id number] 2.16.840.1.423792.3.579. 2. 1981 Unknown [id number] 2.16.840.1.509254.3.579. 2. 1981 Unknown [id number] 2.16.840.1.785595.3.579. 2. 1981 Unknown [id number] 2.16.840.1.990623.3.579. 2. 1981 Unknown [id number] 2.16.840.1.432639.3.579. 2. 1981 Unknown [id number] 2.16.840.1.273647.3.579. 2.727 1981 Unknown [id number] 2.16.840.1.966415.3.579. 2. 1981 Unknown [id number] 2.16.840.1.519600.3.579. 2. 1981 Unknown [id number] 2.16.840.1.717195.3.579. 2. 1981 Unknown [id number] 2.16.840.1.493649.3.579. 2. 1981 Unknown [id number] 2.16.840.1.407291.3.579. 2. 1981 Unknown [id number] 2.16.840.1.712115.3.579. 2. 1981 Unknown [id number] 2.16.840.1.615671.3.579. 2. 1981 Unknown [id number] 2.16.840.1.143000.3.579. 2.727 1959 Unknown [id number] Social History Date Type Detail Facility Start: 07-04-2021 End: 01-16-2022 Tobacco smoking status Ex-smoker (finding) [facility] Start: 05-17-2023 End: 07-16-2024 Sex Assigned At Male [facility] Start: 04-09-2023 End: 04-07-2024 Tobacco smoking status Never [facility] Start: 05-17-2023 [facility] Start: 05-17-2023 Tobacco use and exposure Smokeless tobacco non-user [facility] Start: 01-16-2024 Alcoholic beverage intake Current drinker of alcohol (finding) [facility] Start: 01-16-2024 End: 07-16-2024 Alcoholic beverage intake [facility] How often to you hav e a drink containing alcohol? Monthly or less [facility] How often do you hav e 6 or more drinks on 1 occasion? Never [facility] Start: 1980 Sex assigned at Not on file [facility] Start: 07-16-2024 Alcoholic beverage intake Lifetime non-drinker (finding) [facility] Functional Status Date Assessment Result Facility 04-07-2024 Functional Status N/A [facility] 09-24-2023 Functional Status N/A [facility] 04-09-2023 Functional Status N/A [facility] 07-03-2022 Functional Status N/A [facility] Clinical Notes 07-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 He is due for lab work and would like to complete this at [facility] in [place]. He is also requesting medication refills which will be sent to his pharmacy today. He denies further complaints or concerns at this time. Current Outpatient Medications: tadalafil (Cialis) 20 MG tablet, Refills(s) 0, Disp: , Rfl: testosterone cypionate (Depo-Testosterone) 200 MG/ML injection, Inject 350 mg into the shoulder, thigh, or buttocks., Disp: , Rfl: amLODIPine-benazepril (Lotrel) 10-20 MG capsule, Take 1 capsule by mouth Daily Pt ,must see provider for any additional refills., Disp: 90 capsule, Rfl: 3 Medical History: No past medical history on file. Allergies: No Known Allergies Social History: Tobacco Use: Tobacco Use: Low Risk (07/16/2024) Patient History Smoking Tobacco Use: Never Smokeless Tobacco Use: Never Passive Exposure: Not on file Objective: Vitals: 11/20/24 1604 BP: 134/88 BP Location: Left arm Patient Position: Sitting Pulse: 87 Temp: 97.4 F TempSrc: Temporal SpO2: 99% Weight: 247 lb 12.8 oz Height: 6' 2.5 Physical Exam Vitals and nursing note reviewed. Constitutional: General: He is not in acute distress. Appearance: Normal appearance. He is not ill-appearing. HENT: Head: Normocephalic and atraumatic. Right Ear: External ear normal. Left Ear: External ear normal. Nose: Nose normal. Mouth/Throat: Mouth: Mucous membranes are moist. Eyes: Extraocular Movements: Extraocular movements intact. Pupils: Pupils are equal, round, and reactive to light. Cardiovascular: Rate and Rhythm: Normal rate. Pulses: Normal pulses. Pulmonary: Effort: Pulmonary effort is normal. Breath sounds: No wheezing, rhonchi or rales. Abdominal: General: Bowel sounds are normal. There is no distension. Tenderness: There is no abdominal tenderness. Musculoskeletal: General: Normal range of motion. Cervical back: Normal range of motion. Skin: General: Skin is warm and dry. Neurological: General: No focal deficit present. Mental Status: He is alert and oriented to person, place, and time. Psychiatric: Mood and Affect: Mood normal. Behavior: Behavior normal. Judgment: Judgment normal. Assessment: Assess/Plan Problem List Items Addressed This Visit Hypertension (CMS/HCC) Relevant Medications amLODIPine-benazepril (Lotrel) 10-20 MG capsule Possible complications of uncontrolled hypertension include stroke, congestive heart failure, heart attack, loss of vision, and kidney failure. Please complete labs as directed and call our office in one week if you have not received your lab results. Patient is encouraged to reduce salt in diet and to exercise at least 150 minutes per week. Avoid tobacco use and alcohol consumption. Please take all medications as prescribed. Follow-up: Follow up in about 6 months (around 01/13/2025) for Wellness . documented in this encounter [facility] 04-07-2024 Hospital Discharge instructions Patient Education 04/07/2024 13:11:21 Hypogonadism, Male Hypogonadism, Male Male hypogonadism is [...] therapy. Follow these instructions at home: Take gqpn-smh-dnfezek and prescription medicines only as told by [...] provider. Document Revised: 04/14/2021 Document Reviewed: 04/14/2021 [employer] Patient Education 2022 A Little Easier Recovery. Follow Up Care 11/20/2023 15:18:22 With:BELKYS HERNANDEZ, Zhao Barr, URL Address: [facility] [address] [place] [phone]- When: Unknown [facility] 04-07-2024 Note Patient Education Urology Hypogonadism, Male Male hypogonadism [...] Follow these instructions at home: ? Take nlhy-atu-fmxhcqs and prescription medicines only as told by [...] with your health care provider. Document Revised: (more content not included)... [facility] 09-24-2023 Hospital Discharge instructions Patient Education 09/24/2023 [...] therapy. Follow these instructions at home: Take krij-jmk-wlsctir and prescription medicines only as told by [...] provider. Document Revised: 04/14/2021 Document Reviewed: 04/14/2021 [employer] Patient Education 2022 A Little Easier Recovery. Follow Up Care 04/09/2023 16:36:59 With:BELKYS HERNANDEZ, Zhao Barr, URL Address: [facility] [address], [place] [address]- [phone] When: Unknown Comments:6 mos w/ T level and PSA [facility] 04-09-2023 Hospital Discharge instructions Patient [...] therapy. Follow these instructions at home: Take dcao-ums-vichpxp and prescription medicines only as told by [...] provider. Document Revised: 04/14/2021 Document Reviewed: 04/14/2021 [employer] Patient Education 2022 A Little Easier Recovery. Follow Up Care 09/25/2022 15:36:45 With:BELKYS HERNANDEZ, Zhao Barr, URL Address: [facility] [address] , [place] [address] [phone] When:Within 6 Month(s) Comments:Testosterone level and CBC [facility] 07-03-2022 Hospital Discharge instructions Patient Education 07/03/2022 [...] Follow these instructions at home: Medicines Take sqgw-znp-hpbljos and prescription medicines only as told by [...] 08/10/2001 Document Revised: 07/26/2018 Document Reviewed: 08/29/2017 [employer] Patient Education 2020 A Little Easier Recovery. Follow Up Care 01/16/2022 16:42:22 With:BELKYS HERNANDEZ, Zhao Barr, URL Address: [facility] [address] , [place] [address]- [phone] When:12/31/2022 Comments:Testosterone levels. [facility] Evaluation + Plan note Future Appointments Appointment Date:11/22/2021 02:45:00 PM Scheduled Provider: Location:[facility] Appointment Type:URO Nurse Visit [facility] Evaluation + Plan note Future Appointments Appointment Date:01/16/2022 02:45:00 PM Scheduled Provider:[facility]ARS [facility] Type:URO Office Visit Diagnostic Tests PendingTestosterone Level Total 12/23/21 [facility] Evaluation + Plan note Future Appointments Appointment Date:03/13/2022 02:45:00 PM Scheduled Provider: Location:[facility] Appointment Type:URO Nurse Visit Appointment Date:07/24/2022 02:45:00 PM Scheduled Provider:Zhao SEARS MD Location:[facility] Appointment Type:URO Office Visit [facility] Evaluation + Plan note Future Appointments Appointment Date:04/10/2022 03:00:00 PM Scheduled Provider: [facility] Appointment Type:URO Nurse Visit Appointment Date:07/24/2022 02:45:00 PM Scheduled Provider:Zhao SEARS MD [facility] Appointment Type:URO Office Visit [facility] Evaluation + Plan note Future Appointments Appointment Date:05/08/2022 02:30:00 PM Scheduled Provider: [facility] Appointment Type:URO Nurse Visit Appointment Date:07/24/2022 02:45:00 PM Scheduled Provider:Zhao SEARS MD [facility] Appointment Type:URO Office Visit [facility] Evaluation + Plan note Future Appointments Appointment Date:06/05/2022 02:30:00 PM Scheduled Provider: Location:[facility] Appointment Type:URO Nurse Visit Appointment Date:07/24/2022 02:45:00 PM Scheduled Provider:Zhao SEARS MD Location:[facility] Appointment Type:URO Office Visit [facility] Evaluation + Plan note Future Appointments Appointment Date:07/03/2022 03:00:00 PM Scheduled Provider:Zhao SEARS MD Location:[facility] Appointment Type:URO Office Visit Diagnostic Tests PendingTestosterone Level Total 06/05/22 [facility] [employer] Evaluation + Plan note Future Appointments Appointment Date:07/31/2022 03:00:00 PM Scheduled Provider: Location:[facility] Appointment Type:URO Nurse Visit [facility] Evaluation + Plan note Future Appointments Appointment Date:08/29/2022 03:00:00 PM Scheduled Provider: Location:[facility] Appointment Type:URO Nurse Visit [facility] [employer] Evaluation + Plan note Future Appointments Appointment Date:09/25/2022 03:00:00 PM Scheduled Provider: Location:[facility] Appointment Type:URO Nurse Visit [facility] Evaluation + Plan note Future Appointments Appointment Date:11/20/2022 03:00:00 PM Scheduled Provider: Location:[facility] Appointment Type:URO Nurse Visit Appointment Date:03/26/2023 03:15:00 PM Scheduled Provider:Zhao SEARS MD [facility] Type[facility] Office Visit [facility] [employer] Evaluation + Plan note Future Appointments Appointment Date:12/18/2022 03:00:00 PM Scheduled Provider: [facility] Appointment Type:URO Nurse Visit Appointment Date:03/26/2023 03:15:00 PM Scheduled Provider:Zhao SEARS MD Location:[facility] Appointment Type:URO Office Visit [facility] Evaluation + Plan note Future Appointments Appointment Date:2023 02:45:00 PM Scheduled Provider: Location:[facility] Appointment Type:URO Nurse Visit Appointment Date:03/26/2023 03:15:00 PM Scheduled Provider:Zhao SEARS MD Location:[facility] Appointment Type:URO Office Visit [facility] Evaluation + Plan note Future Appointments Appointment Date:03/12/2023 03:00:00 PM Scheduled Provider: Location:[facility] Appointment Type:URO Nurse Visit Appointment Date:04/09/2023 03:45:00 PM Scheduled Provider:Zhao SEARS MD [facility] Type:URO Office Visit [facility] Evaluation + Plan note Future Appointments Appointment Date:04/09/2023 03:45:00 PM Scheduled Provider:Zhao SEARS MD [facility] App[facility] Type:URO Office Visit Diagnostic Tests PendingCBC w/ Auto Diff 03/12/23Testosterone Level Total 03/12/23 [facility] Evaluation + Plan note Future Appointments Appointment Date:05/07/2023 03:00:00 PM Scheduled Provider: Location:[facility] Appointment Type:URO Nurse Visit Appointment Date:09/24/2023 02:45:00 PM Scheduled Provider:Zhao SEARS MD [facility] App[facility] Type:URO Office Visit Diagnostic Tests PendingCBC w/ Auto Diff 04/09/23Testosterone Level Total 04/09/23 [facility] Evaluation + Plan note Future Appointments Appointment Date:06/04/2023 03:00:00 PM Scheduled Provider: Location:[facility] Appointment Type:URO Nurse Visit Appointment Date:09/24/2023 02:45:00 PM Scheduled Provider:Zhao SEARS MD [facility] App[facility] Type:URO Office Visit [facility] Evaluation + Plan note Future Appointments Appointment Date:07/30/2023 02:45:00 PM Scheduled Provider: [facility] Type:URO Nurse Visit Appointment Date:08/28/2023 03:00:00 PM Scheduled Provider: [facility] Appointment Type:URO Nurse Visit Appointment Date:09/24/2023 10:45:00 AM Scheduled Provider:Zhao SEARS MD Location:[facility] Appointment Type:URO Office Visit [facility] Evaluation + Plan note Future Appointments Appointment Date:08/28/2023 03:00:00 PM Scheduled Provider: [facility] Appointment Type:URO Nurse Visit Appointment Date:09/24/2023 10:45:00 AM Scheduled Provider:Zhao SEARS MD [facility] Appointment Type:URO Office Visit [facility] Evaluation + Plan note Future Appointments Appointment Date:09/24/2023 10:45:00 AM Scheduled Provider:Zhao SEARS MD Location:[facility] Appointment Type:URO Office Visit [facility] Evaluation + Plan note Future Appointments Appointment Date:10/22/2023 10:30:00 AM Scheduled Provider: Location:[facility] Appointment Type:URO Nurse Visit Diagnostic Tests PendingPSA Screen, Total 09/24/23Testosterone Level Total 09/24/23 [facility] Evaluation + Plan note Future Appointments Appointment Date:12/18/2023 03:00:00 PM Scheduled Provider: [facility] Appointment Type:URO Nurse Visit Appointment Date:03/10/2024 09:30:00 AM Scheduled Provider:Zhao SEARS MD Location:[facility] Wing Appointment Type:URO Office Visit [facility] Evaluation + Plan note Future Appointments Appointment Date:2024 03:00:00 PM Scheduled Provider: Location:[facility] Appointment Type:URO Nurse Visit Appointment Date:03/10/2024 09:30:00 AM Scheduled Provider:Zhao SEARS MD [facility] Type:URO Office Visit [facility] Evaluation + Plan note Future Appointments Appointment Date:02/12/2024 03:00:00 PM Scheduled Provider: Location:[facility] Appointment Type:URO Nurse Visit Appointment Date:03/10/2024 09:30:00 AM Scheduled Provider:Zhao SEARS MD Location:[facility] Appointment Type:URO Office Visit [facility] Evaluation + Plan note Future Appointments Appointment Date:03/10/2024 09:30:00 AM Scheduled Provider:Zhao SEARS MD Location:[facility] Appointment Type:URO Office Visit [facility] Evaluation + Plan note Future Appointments Appointment Date:04/07/2024 11:45:00 AM Scheduled Provider:Zhao SEARS MD Location:[facility] Appointment Type:URO Office Visit [facility] Evaluation + Plan note Future Appointments Appointment Date:05/06/2024 02:30:00 PM Scheduled Provider: Location:[facility] Appointment Type:URO Nurse Visit Appointment Date:06/03/2024 02:30:00 PM Scheduled Provider: Location:[facility] Appointment Type:URO Nurse Visit Appointment Date:07/01/2024 02:30:00 PM Scheduled Provider: Location:[facility] Appointment Type:URO Nurse Visit Appointment Date:07/29/2024 02:30:00 PM Scheduled Provider: Location:[facility] Appointment Type:URO Nurse Visit Appointment Date:08/26/2024 09:00:00 AM Scheduled Provider: Location:[facility] [place] Appointment Type:URO Nurse Visit Appointment Date:09/23/2024 02:30:00 PM Scheduled Provider: Location:[facility] Appointment Type:URO Nurse Visit Appointment Date:10/20/2024 11:30:00 AM Scheduled Provider:Zhao SEARS MD Location:[facility] Wing Appointment Type:URO Office Visit Diagnostic Tests PendingTestosterone Level Total 04/07/24 [facility] Evaluation + Plan note Future Appointments Appointment Date:06/03/2024 02:30:00 PM Scheduled Provider: Location:[facility] Wing Appointment Type:URO Nurse Visit Appointment Date:07/01/2024 02:30:00 PM Scheduled Provider: Location:[facility] Wing Appointment Type:URO Nurse Visit Appointment Date:07/29/2024 02:30:00 PM Scheduled Provider: Location:[facility] Wing Appointment Type:URO Nurse Visit Appointment Date:08/26/2024 09:00:00 AM Scheduled Provider: Location:[facility] Wing Appointment Type:URO Nurse Visit Appointment Date:09/22/2024 03:15:00 PM Scheduled Provider:[facility] Office Visit [facility] Evaluation + Plan note Future Appointments Appointment Date:07/01/2024 02:30:00 PM Scheduled Provider: Location:[facility] Wing Appointment Type:URO Nurse Visit Appointment Date:07/29/2024 02:30:00 PM Scheduled Provider: Location:[facility] Appointment Type:URO Nurse Visit Appointment Date:08/26/2024 09:00:00 AM Scheduled Provider: Location:[facility] Wing Appointment Type:URO Nurse Visit Appointment Date:09/22/2024 03:15:00 PM Scheduled Provider:Zhao SEARS MD Location:[facility] Wing Appointment Type:URO Office Visit [facility] Evaluation + Plan note Future Appointments Appointment Date:07/29/2024 02:30:00 PM Scheduled Provider: Location:[facility] Appointment Type:URO Nurse Visit Appointment Date:08/26/2024 09:00:00 AM Scheduled Provider: Location:[facility] Wing Appointment Type:URO Nurse Visit Appointment Date:09/22/2024 02:30:00 PM Scheduled [facility] Nurse Visit Appointment Date:10/20/2024 03:00:00 PM Scheduled Provider:Zhao SEARS MD [facility] Office Visit [facility] [employer] Evaluation + Plan note Future Appointments Appointment Date:08/26/2024 09:00:00 AM Scheduled Provider: [facility] Appoint[facility] Type:URO Nurse Visit Appointment Date:09/22/2024 02:30:00 PM Scheduled Provider: Location:[facility] Appointment Type:URO Nurse Visit Appointment Date:10/17/2024 11:15:00 AM Scheduled Provider:Zhao SEARS MD [facility] Type:URO Office Visit [facility] [employer] Evaluation + Plan note Future Appointments Appointment Date:09/22/2024 02:30:00 PM Scheduled Provider: Location:[facility] Appointment Type:URO Nurse Visit Appointment Date:10/17/2024 11:15:00 AM Scheduled Provider:Zhao SEARS MD [facility] App[facility] Type:URO Office Visit [facility] [employer] Evaluation + Plan note Future Appointments Appointment Date:10/17/2024 11:15:00 AM Scheduled Provider:Zhao SEARS MD [facility] App[facility] Type:URO Office Visit [facility] [employer] Evaluation note Diagnosis Primary hypertension (CMS/HCC) Unspecified essential hypertension documented in [facility] Narrative No data available for this section [facility] Discharge instructions No data available for this section [facility] [employer] progress note No data available for this section [facility] [employer] Summary Purpose Family History No Family History [...] Found No data available for this section Advance Directives No Advanced Directives Records FoundNo Advanced Directives Records FoundNo Advanced Directives Records FoundNo Advanced Directives Records Found Additional Source Comments (unrecognized sect ion and content) No Status Records FoundNo Status Records FoundNo Status Records FoundNo Status Records Found INFORMATION SOURCE (unrecogn ized section and content) DATE CREATED AUTHOR 06/25/2021 [facility] DATE CREATED AUTHOR AUTHOR'S ORGANIZ ATION 01/08/2022 [facility] DATE CREATED AUTHOR AUTHOR'S ORGANIZ ATION 07/19/2024 [facility] EPIC DATE CREATED AUTHOR AUTHOR'S ORGANIZ ATION 09/[facility]/2024 [facility] (unrecognized sect ion and content) Personnel Name: CAROLEE MANDEL [employer] Relationship Specialty Start Date End Date Bear Figueredo MD [address] [place] [address] PCP - General Family Medicine 01/02/23 Corrine Brooks NP [address] [place] [id number] Nurse Practitioner Family Medicine 01/11/24 Carolee Mandel NP [address] [place] [phone] Nurse Practitioner Family Medicine 01/11/24 [employer] Relationship Specialty Start Date End Date Bear Figueredo MD [address] [place] [address] PCP - General Family Medicine 01/02/23 Corrine Brooks NP [address] [place] [address] Nurse Practitioner Family Medicine 01/11/24 Carolee Mandel NP [address] [place] [address] Nurse Practitioner [facility] 01/11/24 FOR RECORDS PERTAINING TO PATIENTS WHO ARE [...] BE BASED ON THE PRIMARY CLINICAL RECORDS. [facility] provides no warranty or guarantee of the accuracy or completeness of information in this document.
[2024-10-07 08:15] LABS: Testosterone 553 ng/dL (264-916)
== END 2024-10-06 08:18 | disposition home or self-care (01) ==
LOC: LAB 08:20
PROVIDERS: PCP Nurse Practitioner Family; Visit Provider Urology
DX: E29.1 Testicular hypofunction (principal)
CPT/HCPCS: 36415; 84403

== ENCOUNTER 2024-10-06 08:24 | Outpatient (OUT) | payer OTHER, SELFPAY ==
--- OUTSIDE RECORDS SUMMARY | 2024-10-06 08:36 | XMS_ITS | CCD ---
Author Organization [facility] Inform ion [facility] Care Team Providers Care Legislators Name Role Phone BELKYS, DR HERNANDEZ Attending Unavailable SEARS, DR HERNANDEZ Consulting Unavailable SEARS, DR HERNANDEZ Admitting Unavailable CORRINE MENDEZ Primary Care Unavailable FARHAT LEONARD Primary Care Physician CAROLEE MANDEL Primary Care Physician Unavailab Izzy HERNANDEZ, Bear Willis Primary Care Provider Todd EVAPORATOR HELPER, Corrine Unavailable Ministerio EVAPORATOR HELPER, Carolee Barr Unavailable [phone] CAROLEE MANDEL Attending Unavailable LABRAEDEN, CAROLEE Barr [...] Medication Allergies] Propensity to adverse reactions (disorder) [facility] Repository Medications Current Medications Medication Drug [...] q4wk, # 10 mL, Refills(s) 5, Pharmacy: [facility] #[id number], 190, cm, 04/07/24 12:31:00 EDT, Height/Length Dosing, 102.7, kg, 04/07/24 12:31:00 EDT, Weight Dosing Start Date: 06/16/24 Status: Ordered Start: 04-07-2024 testosterone c ypionate 200 mg/mL IM Yvonne 500 mg, IntraMuscular, q4wk, # 10 mL, Refills(s) 5, Pharmacy: [facility] [id number], 190, cm, 04/07/24 12:31:00 EDT, Height/Length Dosing, 102.7, kg, 04/07/24 12:31:00 EDT, Weight Dosing Start Date: 04/07/24 Status: Ordered Start: 11-14-2023 testosterone c ypionate 200 mg/mL IM Yvonne 350 mg, IntraMuscular, q4wk, # 10 mL, Refills(s) 3, Pharmacy: [facility] #[id number], 190, cm, 09/24/23 11:25:00 EST, Height/Length Dosing, 105.2, kg, 09/24/23 11:25:00 EST, Weight Dosing Start Date: 11/14/23 Status: Ordered Start: 04-04-2023 testosterone c ypionate 200 mg/mL IM Yvonne 350 mg, IntraMuscular, q4wk, # 10 mL, Refills(s) 3, Pharmacy: [facility] #[id number], 190, cm, 07/03/22 15:34:00 EST, Height/Length Dosing, 110.5, kg, 07/03/22 15:34:00 EST, Weight Dosing Start Date: 04/04/23 Status: Ordered Start: 09-25-2022 testosterone c ypionate 200 mg/mL IM Yvonne 350 mg, IntraMuscular, q4wk, # 10 mL, Refills(s) 3, Pharmacy: [facility] #[id number], 190, cm, 07/03/22 15:34:00 EST, Height/Length Dosing, 110.5, kg, 07/03/22 15:34:00 EST, Weight Dosing Start Date: 09/25/22 Status: Ordered Start: 05-04-2022 testosterone c ypionate 200 mg/mL IM Yvonne 300 mg, IntraMuscular, q4wk, # 10 mL, Refills(s) 3, Pharmacy: [facility] #[id number], 190, cm, 01/16/22 15:25:00 EDT, Height/Length Dosing, [...] hours., # 30 tab(s), Refills(s) 3, Pharmacy: [facility] [id number], 190, cm, 04/07/24 12:31:00 EDT, Height/Length Dosing, 102.7, kg, 04/07/24 12:31:00 EDT, Weight Dosing Start Date: 04/07/24 Status: Ordered Start: 01-16-2022 End: 05-16-2022 take 1 tablet by mouth every hour as needed Cialis 20 mg Tab 20 mg = 1 tab(s), Oral, As Directed, Take one tab prn one hour prior to sexual intercourse, X 30 day(s), # 30 tab(s), Refills(s) 3, Pharmacy: [facility] [id number], 190, cm, 01/16/22 15:25:00 EDT, Height/Length Dosing, 110, kg, 01/16/22 15:25:00 ED... Start Date: 01/16/22 Stop Date: 05/16/22 Status: Ordered Start: 01-03-2021 take 1 tablet by walter th every hour as needed Cialis 20 mg Tab 20 mg = 1 tab(s), Oral, As Directed, Take one tab prn one hour prior to sexual intercourse, # 30 tab(s), Refills(s) 3, Pharmacy: [facility] [id number], 190, cm, 01/03/21 15:37:00 [...] TINEO PA-C Primary Care Physician - CAROLEE MANDEL This Is Your Medications List amlodipine-atorvasta tin (amlodipine-atorvast atin 10 mg-20 mg oral tablet) tadalafil (Cialis 20 mg Tab) testosterone (testosterone cypionate 200 mg/mL IM Yvonne) What to do next Scheduled Follow-Up Appointments Sunday 2:30 PM EDT With: Where: [facility] [address] [place] [address]- Sunday 2:30 PM EST With: Where: [facility] [address] [place] [address]- Sunday 2:30 PM EST With: Where: [facility] [address] [place] [address]- Sunday 9:00 AM EST With: Where: [facility] [address] [place] [address]- Sunday 3:15 PM EST With: BELKYS HERNANDEZ, Zhao Barr Where: [facility] [address] [place] [address]- Medications What How Much When Instructions Unchanged [...] for choosing us for your care. Normal [facility] Ambulatory Visit Summaryon 0 - Ambulatory Visit [...] PM EDT With: Where: [facility] of [place] [address] [place] [address]- Sunday 2:30 PM EDT With: Where: [facility] [address] [place] [address]- Sunday 2:30 PM EST With: Where: [facility] [address] [place] [address]- Sunday 2:30 PM EST With: Where: [facility] [address] [place] [address]- Sunday 9:00 AM EST With: Where: [facility] [address] [place] [address]- Sunday 2:30 PM EST With: Where: [facility] [address] [place] [address]- Sunday 11:30 AM EST With: Zhao SEARS MD Where: [facility] [place] [address] [place] [address]- You Need to Schedule the Following Appointments Follow Up with Zhao SEARS MD, URL When: Where: [facility] [address], [place] [address]- Medications What How Much When Instructions Changed tadalafil (Cialis 20 mg Tab) 1 Tablets By Mouth As Directed Take one tab by mouth one to two hours prior to sexual activity. Do NOT exceed 20 mg (1 tab) in 24 hours. Pickup at [facility] [id number] Changed testosterone (testosterone cypionate 200 mg/ mL IM Yvonne) 500 Milligram Intramuscular Every 4 weeks Pickup at [facility] [id number] Unchanged amlodipine-atorvasta tin (amlodipine-atorvast atin 10 mg-20 mg oral tablet) By Mouth Every day Contact prescribing physician if questions or concerns Pharmacy Information [facility] [id number]: [address] [place], [place] [id number] [phone] Medications and Immunizations Administered Given Depo-Testosterone 200 [...] the testicles (more content not included)... Normal [facility] Urology Office/Clinic Noteon 04-07-2024 Urology Office/Clinic Note [...] Urology [address], [place] [address]- Additional Instructions: 6 mos with T level [...] HERNANDEZ, Zhao Barr Where: [facility] Ambulatory Visit Summaryon 0 12-18-2023 Ambulatory Visit [...] PM EDT With: Where: [facility] [address] [place] [address]- \.br\ Medications\.br\ What How Much When Instructions\.br\ [...] for choosing us for your care.\.br\ \.br\ [facility] Ambulatory Visit Summaryon 0 11-20-2023 Ambulatory [...] PM EDT With: Where: [facility] Normal [address] [place] [address]- \.br\ Medications\.br\ What How Much When Instructions\.br\ [...] for choosing us for your care.\.br\ \.br\ [facility] Ambulatory Visit Summaryon 0 10-22-2023 Ambulatory [...] 3:00 PM EDT Where: [facility] Ambulatory Visit Summaryon 0 09-24-2023 Ambulatory Visit [...] AM EST Where: [facility] Ambulatory Visit Summary SERENAMORENO IBARRA :1980 Visit [...] 10:30 AM EST Where: [facility] [place] Normal [facility] Patient Educationon 09-24-19 24 Patient Education [...] Follow these instructions at home: ? Take opsl-wss-xwvchun and prescription medicines only as told by [...] 04/14/2021 Document (more content not included)... Normal [facility] Urology Office/Clinic Noteon 09-24-2023 Urology Office/Clinic [...] q4w. Pt to call for refills, uses [facility] in [place]. -F/u with T level in 6 mos [...] Urology [address], [place] [phone] Additional Instructions: 6 mos w/ T level [...] Urine Dip (more content not included)... Normal [facility] Comment on above: Result Comment: Elec tronically Signed By: BELKYS HERNANDEZ, Zhao Renteria.martha\Date and Time Signed: 09/24/23 12:34 EST\.br\Electronically Co-Signed By: Shaina Sheriff\.br\Date and Time Co-Signed: 09/24/23 12:33 EST Testosteroneon 01-06-2022 TESTOS 418.70 ng/dL Normal 249.00-836.00 [facility] Occupational Therapy Assistant Comment on above: Performed By: #### T EST #### [facility] [address], [place] [id number] Complete Blood Count with Au to Diffon 12-23-2021 Basophils (Bld) [#/Vol] 0.02 10*3/uL Normal 0.00-0.20 [facility] Occupational Therapy Assistant Comment on above: Performed By: #### F MITCH RONDON, CBCAD #### [facility] [address], [place] [id number] Basophils/100 WBC (Bld) 0.5 % Normal [facility] Occupational Therapy Assistant Comment on above: Performed By: #### F MITCH RONDON, CBCAD #### [facility] [address], [place] [id number] Eosinophils (Bld) [#/Vol] 0.05 10*3/uL Normal 0.02-0.50 [facility] Occupational Therapy Assistant Comment on above: Performed By: #### F MITCH RONDON, CBCAD #### [facility] [address], [place] [id number] Eosinophils/100 WBC (Bld) 1.3 % Normal [facility] Occupational Therapy Assistant Comment on above: Performed By: #### F MITCH RONDON, CBCAD #### [facility] [address], [place] [id number] Erythrocyte distribution width (RBC) [Ratio] 15.3 % High 11.0-15.0 [facility] Occupational Therapy Assistant Comment on above: Performed By: #### F MITCH RONDON, CBCAD #### [facility] [address], [place] [id number] Hematocrit (Bld) [Volume fraction] 43.6 % Normal 38.5-50.0 [facility] Occupational Therapy Assistant Comment on above: Performed By: #### F MITCH RONDON, CBCAD #### [facility] [address], [place] [id number] Hemoglobin (Bld) [Mass/Vol] 15.3 g/dL Normal 13.0-17.1 [facility] Specialist Comment on above: Performed By: #### F MITCH RONDON, CBCAD #### [facility] [address], [place] [id number] Lymphocytes (Bld) [#/Vol] 1.9 10*3/uL Normal 0.9-3.9 [facility] Specialist Comment on above: Performed By: #### F MITCH RONDON, CBCAD #### [facility] [address], [place] [id number] Lymphocytes/100 WBC (Bld) 47.2 % Normal [facility] Specialist Comment on above: Performed By: #### F MITCH RONDON, CBCAD #### [facility] [address], [place] [id number] MCH (RBC) [Entitic mass] 27.1 pg Normal 27.0-33.0 [facility] Specialist Comment on above: Performed By: #### F MITCH RONDON, CBCAD #### [facility] [address], [place] [id number] MCHC (RBC) [Mass/Vol] 35.1 g/dL Normal 32.0-36.0 [facility] Specialist Comment on above: Performed By: #### F MITCH RONDON, CBCAD #### [facility] [address], [place] [id number] MCV (RBC) [Entitic vol] 77 fL Low 80-100 [facility] Specialist Comment on above: Performed By: #### F MITCH RONDON, CBCAD #### [facility] [address], [place] [id number] Monocytes (Bld) [#/Vol] 0.3 10*3/uL Normal 0.2-0.9 [facility] Specialist Comment on above: Performed By: #### F MITCH RONDON, CBCAD #### [facility] [address], [place] [id number] Monocytes/100 WBC (Bld) 8.6 % Normal [facility] Specialist Comment on above: Performed By: #### F MITCH RONDON, CBCAD #### [facility] [address], [place] [id number] Neutrophils (Bld) [#/Vol] 1.7 10*3/uL Normal 1.5-7.8 [facility] Comment on above: Performed By: #### F MITCH RONDON, CBCAD #### [facility] [address] [facility] [place] [id number] Neutrophils/100 WBC (Bld) 42.4 % Normal [facility] Comment on above: Performed By: #### F MITCH RONDON, CBCAD #### [facility] [address], [place] [id number] Platelet mean volume (Bld) [Entitic vol] 11.80 fL Normal 7.50-12.50 [facility] Comment on above: Performed By: #### F MITCH RONDON, CBCAD #### [facility] [address], [place] [id number] Platelets (Bld) [#/Vol] 217 10*3/uL Normal 140-400 [facility] Comment on above: Performed By: #### F MITCH RONDON, CBCAD #### [facility] [address], [place] [id number] RBC (Bld) [#/Vol] 5.64 10*6/uL Normal 4.20-5.80 [facility] Comment on above: Performed By: #### F MITCH RONDON, CBCAD #### [facility] [address], [place] [id number] RDW-SD 41.9 fL Normal 37.0-50.0 [facility] Comment on above: Performed By: #### F MITCH RONDON, CBCAD #### [facility] [address], [place] [id number] WBC (Bld) [#/Vol] 3.9 10*3/uL Normal 3.8-11.0 [facility] Comment on above: Performed By: #### F MITCH RONDON, CBCAD #### [facility] [address], [place] [id number] Ferritinon 12-23-2021 FERR 204.8 ng/mL Normal 30.0-400.0 [facility] Specialist Comment on above: Performed By: #### F MITCH RONDON Prof, CBCAD #### [facility] [address], [place] [id number] Iron Profileon 12-23-2021 %FESAT 22 % Normal 15-60 [facility] Specialist Comment on above: Performed By: #### F ALCON FE Prof, CBCAD #### [facility] [address], [place] [id number] FE 65 ug/dL Normal 50-180 [facility] Occupational Therapy Assistant Comment on above: Result Comment: Refe rence range change 07/13/2017. Prior reference range F 37-145 ug/dL, M 59-158 ug/dL. Performed By: #### F MITCH RONDON, CBCAD #### [facility] [address], [place] [id number] TIBC 292 ug/dL Normal 250-425 [facility] Occupational Therapy Assistant Comment on above: Performed By: #### F MITCH RONDON, CBCAD #### [facility] [address], [place] [id number] UIBC 227 ug/dL Normal 112-347 [facility] Occupational Therapy Assistant Comment on above: Performed By: #### F MITCH RONDON, CBCAD #### [facility] [address], [place] [id number] Complete Blood Count with Au to Diffon 11-22-2021 Erythrocyte distribution width (RBC) [Ratio] 14.9 % Normal 11.0-15.0 [facility] Occupational Therapy Assistant Comment on above: Performed By: #### L NANI LEMUS MDIFF, VITD, CBCAD #### [facility] [address], [place] [id number] Hematocrit (Bld) [Volume fraction] 43.7 % Normal 38.5-50.0 [facility] Specialist Comment on above: Performed By: #### L NANI LEMUS MDIFF, VITD, CBCAD #### [facility] [address], [place] [id number] Hemoglobin (Bld) [Mass/Vol] 15.1 g/dL Normal 13.0-17.1 [facility] Occupational Therapy Assistant Comment on above: Performed By: #### L IPD, CMP, MDIFF, VITD, CBCAD #### [facility] [address], [place] [id number] MCH (RBC) [Entitic mass] 26.6 pg Low 27.0-33.0 [facility] Special[facility] Comment on above: Performed By: #### L IPD, CMP, MDIFF, VITD, CBCAD #### [facility] [address], [place] [id number] MCHC (RBC) [Mass/Vol] 34.6 g/dL Normal 32.0-36.0 [facility] Special[facility] Comment on above: Performed By: #### L IPD, CMP, MDIFF, VITD, CBCAD #### [facility] [address], [place] [id number] MCV (RBC) [Entitic vol] 77 fL Low 80-100 [facility] Specialist Comment on above: Performed By: #### L IPD, CMP, MDIFF, VITD, CBCAD #### [facility] [address], [place] [id number] Platelet mean volume (Bld) [Entitic vol] 11.30 fL Normal 7.50-12.50 [facility] Specialist Comment on above: Performed By: #### L IPD, CMP, MDIFF, VITD, CBCAD #### [facility] [address], [place] [id number] Platelets (Bld) [#/Vol] 173 10*3/uL Normal 140-400 [facility] Occupational Therapy Assistant Comment on above: Performed By: #### L IPD, CMP, MDIFF, VITD, CBCAD #### [facility] [address], [place] [id number] RBC (Bld) [#/Vol] 5.67 10*6/uL Normal 4.20-5.80 [facility] Specialist Comment on above: Performed By: #### L IPD, CMP, MDIFF, VITD, CBCAD #### [facility] [address], [place] [id number] RDW-SD 40.8 fL Normal 37.0-50.0 [facility] Specialist Comment on above: Performed By: #### L IPD, CMP, MDIFF, VITD, CBCAD #### [facility] [address], [place] [id number] REFLEX Manual Differential Normal [facility] Comment on above: Performed By: #### L IPD, CMP, MDIFF, VITD, CBCAD #### [facility] [address], [place] [id number] WBC (Bld) [#/Vol] 3.5 10*3/uL Low 3.8-11.0 [facility] Occupational Therapy Assistant Comment on above: Performed By: #### L IPD, CMP, MDIFF, VITD, CBCAD #### [facility] [address], [place] [id number] Comprehensive Metabolic Pane kei 11-22-2021 Albumin [Mass/Vol] 5.0 g/dL Normal 3.6-5.1 [facility] Occupational Therapy Assistant Comment on above: Performed By: #### L IPD, CMP, MDIFF, VITD, CBCAD #### [facility] [address], [place] [id number] Albumin/Globulin [Mass ratio] 2.3 {ratio} Normal 1.0-2.5 [facility] Comment on above: Performed By: #### L MARIAH, CMP, MDIFF, VITD, CBCAD #### [facility] [address], [place] [id number] ALP [Catalytic activity/Vol] 46 U/L Normal 40-129 [facility] Specialist Comment on above: Performed By: #### L IPD, CMP, MDIFF, VITD, CBCAD #### [facility] [address], [place] [id number] ALT [Catalytic activity/Vol] 24 U/L Normal 9-46 [facility] Specialist Comment on above: Result Comment: 07/27 Female reference range changed. Performed By: #### L IPD, CMP, MDIFF, VITD, CBCAD #### [facility] [address], [place] [id number] Anion gap [Moles/Vol] 18 mmol/L Normal 12-20 [facility] Specialist Comment on above: Result Comment: Effe ctive 09/01/2019 reference range changed. Performed By: #### L IPD, CMP, MDIFF, VITD, CBCAD #### [facility] [address], [place] [id number] AST [Catalytic activity/Vol] 20 U/L Normal 10-40 [facility] Comment on above: Performed By: #### L IPD, CMP, MDIFF, VITD, CBCAD #### [facility] [address], [place] [id number] Bilirubin [Mass/Vol] 0.62 mg/dL Normal 0.30-1.20 [facility] Comment on above: Performed By: #### L IPD, CMP, MDIFF, VITD, CBCAD #### [facility] [address], [place] [id number] BUN/CREA 17 Ratio Normal 6-22 [facility] Comment on above: Performed By: #### L IPD, CMP, MDIFF, VITD, CBCAD #### [facility] [address], [place] [id number] Calcium [Mass/Vol] 10.2 mg/dL Normal 8.6-10.2 [facility] Comment on above: Performed By: #### L IPD, CMP, MDIFF, VITD, CBCAD #### [facility] [address], [place] [id number] Chloride [Moles/Vol] 101 mmol/L Normal 98-107 [facility] Comment on above: Performed By: #### L IPD, CMP, MDIFF, VITD, CBCAD #### [facility] [address], [place] [id number] CO2 [Moles/Vol] 24 mmol/L Normal 20-31 [facility] Specialist Comment on above: Performed By: #### L IPD, CMP, MDIFF, VITD, CBCAD #### [facility] [address], [place] [id number] Creatinine [Mass/Vol] 1.0 mg/dL Normal 0.7-1.4 [facility] Comment on above: Performed By: #### L IPD, CMP, MDIFF, VITD, CBCAD #### [facility] [address] [facility] [id number] eGFRAA 96 mL/min/1.73m2 Normal >60 [facility] Therapy Assistant Comment on above: Performed By: #### L MARIAH, NANI, MDIFF, VITD, CBCAD #### [facility] [address], [place] [id number] eGFRNAA 79 mL/min/1.73m2 Normal >60 [facility] Occupational Therapy Assistant Comment on above: Performed By: #### L IPD, CMP, MDIFF, VITD, CBCAD #### [facility] [address], [place] [id number] Globulin (S) [Mass/Vol] 2.2 g/dL Normal 1.9-3.7 [facility] Occupational Therapy Assistant Comment on above: Performed By: #### L MARIAH, NANI, MDIFF, VITD, CBCAD #### [facility] [address], [place] [id number] Glucose [Mass/Vol] 80 mg/dL Normal 65-99 [facility] Occupational Therapy Assistant Comment on above: Result Comment: For FASTING Glucose --- ADA reference ranges: Normal 65-99 mg/dl Prediabetes 100-125 Diabetes >/= 126 Performed By: #### L MARIAH, NANI, MDIFF, VITD, CBCAD #### [facility] [address], [place] [id number] Potassium [Moles/Vol] 4.3 mmol/L Normal 3.5-5.5 [facility] Occupational Therapy Assistant Comment on above: Performed By: #### L MARIAH, NANI, MDIFF, VITD, CBCAD #### [facility] [address], [place] [id number] Protein [Mass/Vol] 7.2 g/dL Normal 6.1-8.1 [facility] Occupational Therapy Assistant Comment on above: Performed By: #### L MARIAH, CMP, MDIFF, VITD, CBCAD #### [facility] [address] [facility] [id number] Sodium [Moles/Vol] 139 mmol/L Normal 135-146 [facility] Occupational Therapy Assistant Comment on above: Performed By: #### L MARIAH, NANI, MDIFF, VITD, CBCAD #### [facility] [address] [facility] [place] [id number] Urea nitrogen [Mass/Vol] 17 mg/dL Normal 7-25 [facility] Occupational Therapy Assistant Comment on above: Performed By: #### L MARIAH, NANI, MDSHIVA, VITD, CBCAD #### [facility] [address], [place] [id number] Lipid Panelon 11-22-2021 Cholesterol [Mass/Vol] 186 mg/dL Normal 125-200 [facility] Occupational Therapy Assistant Comment on above: Result Comment: Low risk < 200mg/dL Borderline risk 201-239 mg/dl High risk > or equal to 240 Performed By: #### L MARIAH, CMP, MDSHIVA, VITD, CBCAD #### [facility] [address] [facility] [place] [id number] Cholesterol in HDL [Mass/Vol] 44 mg/dL Normal >40 [facility] Occupational Therapy Assistant Comment on above: Result Comment: High Cardiovascular Risk HDL <40 mg/dL Low Cardiovascular Risk HDL > or equal to 60 mg/dl Performed By: #### L MARIAH, NANI, MDSHIVA, VITD, CBCAD #### [facility] [address], [place] [id number] Cholesterol in LDL [Mass/Vol] 130 mg/dL Normal [facility] Specialist Comment on above: Result Comment: LDL ATP III CLASSIFICATION LDL less than 100 mg/dl Optimal LDL 100-129 mg/dl Near or above optimal LDL 130-159 Borderline high LDL 160-189 High LDL greater than 189 mg/dl Very High Performed By: #### L MARIAH, NANI, MDSHIVA, VITD, CBCAD #### [facility] [address], [place] [id number] Cholesterol in VLDL [Mass/Vol] 12 mg/dL Normal [facility] Occupational Therapy Assistant Comment on above: Performed By: #### L MARIAH, NANI, MDSHIVA, VITD, CBCAD #### [facility] [address] [facility] [place] [id number] Cholesterol.total/C holesterol in HDL [Mass ratio] 4 {ratio} Normal [facility] Occupational Therapy Assistant Comment on above: Performed By: #### L MARIAH, NANI, MDSHIVA, VITD, CBCAD #### [facility] [address] [place] [id number] Triglyceride [Mass/Vol] 61 mg/dL Normal 30-150 [facility] Occupational Therapy Assistant Comment on above: Result Comment: TRIG ATPIII CLASSIFICATIONS TRIG less than 150 mg/dl Normal TRIG 150-199 mg/dl Borderline High TRIG 200-500 mg/dl High TRIG greather than 500 mg/dl Very High Performed By: #### L NANI LEMUS MDIFF, IRA, CBCAD #### [facility] [address], [place] [id number] Manual Differentialon 2021 BAND 0.0 % Normal [facility] Specialist Comment on above: Performed By: #### L NANI LEMUS MDIFF, VITD, CBCAD #### [facility] [address], [place] [id number] BANDABS 0.0 K/uL Normal [facility] Specialist Comment on above: Performed By: #### L NANI LEMUS MDIFF, VITD, CBCAD #### [facility] [address], [place] [id number] BASO 0.0 % Normal [facility] Specialist Comment on above: Performed By: #### L NANI LEMUS MDIFF, VITMookie, CBCAD #### [facility] [address], [place] [id number] BASOABS 0.0 K/uL Normal 0.0-0.2 [facility] Occupational Therapy Assistant Comment on above: Performed By: #### L NANI LEMUS MDIFF, VITD, CBCAD #### [facility] [address], [place] [id number] EOS 1.0 % Normal [facility] Occupational Therapy Assistant Comment on above: Performed By: #### L NANI LEMUS MDIFF, VITD, CBCAD #### [facility] [address], [place] [id number] EOSABS 0.0 K/uL Normal 0.0-0.5 [facility] Occupational Therapy Assistant Comment on above: Performed By: #### L NANI LEMUS MDIFF, VITD, CBCAD #### [facility] [address], [place] [id number] LYMPH 64.0 % Normal [facility] Occupational Therapy Assistant Comment on above: Performed By: #### L NANI LEMUS MDIFF, VITMookie, CBCAD #### [facility] [address], [place] [id number] LYMPHABS 2.3 K/uL Normal 0.9-3.9 [facility] Specialist Comment on above: Performed By: #### L IPD, CMP, MDIFF, VITD, CBCAD #### [facility] [address], [place] [id number] LYMPHATYP 2.0 % Normal 0.9-3.9 [facility] Occupational Therapy Assistant Comment on above: Performed By: #### L IPD, CMP, MDIFF, VITD, CBCAD #### [facility] [address], [place] [id number] MONO 8.0 % Normal [facility] Specialist Comment on above: Performed By: #### L IPD, CMP, MDIFF, VITD, CBCAD #### [facility] [address], [place] [id number] MONOABS 0.3 K/uL Normal 0.2-0.9 [facility] Specialist Comment on above: Performed By: #### L IPD, CMP, MDIFF, VITD, CBCAD #### [facility] [address], [place] [id number] RBCMORPH Normal Normal [facility] Specialist Comment on above: Performed By: #### L IPD, CMP, MDIFF, VITD, CBCAD #### [facility] [address], [place] [id number] SEG 25.0 % Normal [facility] Specialist Comment on above: Performed By: #### L IPD, CMP, MDIFF, VITD, CBCAD #### [facility] [address], [place] [id number] SEGABS 0.9 K/uL Low 1.5-7.8 [facility] Occupational Therapy Assistant Comment on above: Performed By: #### L IPD, CMP, MDIFF, VITD, CBCAD #### [facility] [address], [place] [id number] WBC 3.5 K/uL Low 3.8-11.0 [facility] Occupational Therapy Assistant Comment on above: Performed By: #### L IPD, CMP, MDIFF, VITD, CBCAD #### [facility] [address], [place] [id number] Vitamin D 25-OHon 11-22-2021 VIT D 25 OH 71 ng/ml Normal >29 [facility] Occupational Therapy Assistant Comment on above: Result Comment: Itzel min D Status Deficiency <20 ng/mL Insufficiency 20-29 ng/mL Optimal 30-100 ng/mL Possible Toxicity >=150 ng/mL Performed By: #### L IPD, CMP, MDIFF, VITD, CBCAD #### [facility] [address] [place], [place] [id number] TESTOSTERONE, TOTALon 2020 Testosterone [Mass/Vol] 402 ng/dL Normal 264-916 [facility] Comment on above: Result Comment: Adul t male reference interval is based on a population of healthy nonobese males (BMI <30) between 19 and 39 years old. [place] et.al. JCEM 2017,102;8108-3798. PMID: [id number]. Performed By: #### T ESTTOT #### [facility] [address], [place] [address] Dr[address] Efraín Guevara Vital Signs Date Time Vital Sign Value Performing Clinician Facility 07-16-2024 16:04-0500 Body height 189.2 cm Carolee Lause EVAPORATOR HELPER Work Phone: [facility] 07-16-2024 16:04-0500 Body mass index (BMI) [Ratio] 31.39 kg/m2 Carolee Lause EVAPORATOR HELPER Work Phone: [facility] 07-16-2024 16:04-0500 Body temperature 97.39 [degF] Carolee Lause EVAPORATOR HELPER Work Phone: [facility] 07-16-2024 16:04-0500 Body weight 112.4 kg Carolee Lause EVAPORATOR HELPER Work Phone: [facility] 07-16-2024 16:04-0500 Diastolic blood pressure 88 mm[Hg] Carolee Lause EVAPORATOR HELPER Work Phone: [facility] 07-16-2024 16:04-0500 Heart rate 87 /min Carolee Lause EVAPORATOR HELPER Work Phone: [facility] 07-16-2024 16:04-0500 SaO2% (BldA) [Mass fraction] 99 % Carolee Lause EVAPORATOR HELPER Work Phone: [facility] 07-16-2024 16:04-0500 Systolic blood pressure 134 mm[Hg] Carolee Carrollbraeden EVAPORATOR HELPER Work Phone: [facility] 04-07-2024 12:27-0400 Blood Pressure Location Zhao SEARS [facility] 04-07-2024 12:27-0400 Body temperature 98.6 [degF] Zhao SEARS [facility] 04-07-2024 12:27-0400 Diastolic blood pressure 84 mm[Hg] Zhao SEARS [facility] 04-07-2024 12:27-0400 Heart rate 89 /min Zhao SEARS [facility] 04-07-2024 12:27-0400 Respiratory rate 16 /min Zhao SEARS [facility] 04-07-2024 12:27-0400 Systolic blood pressure 128 mm[Hg] Zhao SEARS [facility] 09-24-2023 11:11-0500 Blood Pressure Location Zhao SEARS [facility] 09-24-2023 11:11-0500 Diastolic blood pressure 83 mm[Hg] Zhao SEARS [facility] 09-24-2023 11:11-0500 Heart rate 71 /min Zhao SEARS [facility] 09-24-2023 11:11-0500 Respiratory rate 16 /min Zhao SEARS [facility] 09-24-2023 11:11-0500 Systolic blood pressure 137 mm[Hg] Zhao SEARS [facility] 04-09-2023 15:36-0400 Blood Pressure Location Zhao SEARS [facility] 04-09-2023 15:36-0400 Diastolic blood pressure 82 mm[Hg] Zhao SEARS [facility] 04-09-2023 15:36-0400 Heart rate 78 /min Zhaocaleb SEARS [facility] 04-09-2023 15:36-0400 Systolic blood pressure 138 mm[Hg] Zhaocaleb SEARS [facility] 07-03-2022 15:24-0500 Blood Pressure Location Zhaocaleb SEARS [facility] 07-03-2022 15:24-0500 Diastolic blood pressure 88 mm[Hg] Zhaocaleb SEARS [facility] 07-03-2022 15:24-0500 Heart rate 70 /min Zhaocaleb SEARS [facility] 07-03-2022 15:24-0500 Respiratory rate 16 /min Zhao SEARS [facility] 07-03-2022 15:24-0500 Systolic blood pressure 135 mm[Hg] Zhao SEARS [facility] Encounters Encounter Date Encounter Type Care Provider Facility Start: 10-20-2024 ambulatory Zhao Arguetai ty:[facility] Start: 02-21-2025 ambulatory Zhao Arguetai [facility] Start: 09-22-2024 End: 09-22-2024 ambulatory Zhao SEARS Facility:[facility] Start: 09-22-2024 End: 09-22-2024 Patient encounter procedure Zhao SEARS [facility] Start: 08-26-2024 End: 08-26-2024 ambulatory DEMETRIS E NOMAN Facility:[facility] Start: 08-26-2024 End: 08-26-2024 Patient encounter procedure DEMETRIS E NOMAN [facility] Start: 07-29-2024 End: 07-29-2024 ambulatory DEMETRIS E NOMAN Facility:[facility] Start: 07-29-2024 End: 07-29-2024 Patient encounter procedure DEMETRIS E NOMAN [facility] Start: 07-16-2024 End: 07-16-2024 Office outpatient visit 15 minutes Carolee Mandel EVAPORATOR HELPER Work Phone: [facility] Comment on above: Primary hypertension (CMS/HCC) Start: 07-16-2024 End: 07-16-2024 ambulatory CAROLEE R LAUSE Not Available Start: 07-16-2024 End: 07-16-2024 Bamboo flowsheet Carolee R Lause EVAPORATOR HELPER Work Phone: [facility] Start: 07-16-2024 End: 07-16-2024 Bamboo flowsheet Carolee R Lause EVAPORATOR HELPER Work Phone: [facility] Start: 07-01-2024 End: 07-01-2024 ambulatory [facility] Start: 07-01-2024 End: 07-01-2024 Patient encounter procedure [facility] E NOMAN [facility] Start: 06-03-2024 End: 06-03-2024 ambulatory DEMETRIS Heidi NOMAN Facility:[facility] Start: 06-03-2024 End: 06-03-2024 Patient encounter procedure DEMETRIS Heidi TINEO [facility] Start: 05-06-2024 End: 05-06-2024 ambulatory DEMETRIS Heidi NOMAN Facility:[facility] Start: 05-06-2024 End: 05-06-2024 Patient encounter procedure DEMETRIS Heidi TINEO [facility] Start: 04-07-2024 End: 04-07-2024 ambulatory Zhao SEARS Facility:[facility] Start: 04-07-2024 End: 04-07-2024 Patient encounter procedure Zhao SEARS [facility] Start: 03-11-2024 End: 03-11-2024 ambulatory Zhao SEARS Facility:[facility] Start: 03-11-2024 End: 03-11-2024 Patient encounter procedure Zhao SEARS [facility] Start: 02-12-2024 End: 02-12-2024 ambulatory Zhao SEARS Facility:[facility] Start: 02-12-2024 End: 02-12-2024 Patient encounter procedure Zhao R SEARS [facility] Start: 01-16-2024 End: 01-16-2024 ambulatory CAROLEE MANDEL Not Available Start: 2024 End: 2024 ambulatory DEMETRIS Heidi NOMAN Facility:[facility] Start: 2024 End: 2024 Patient encounter procedure DEMETRIS TINEO [facility] [employer] Start: 12-18-2023 End: 12-18-2023 ambulatory Cindy Calderon Galpedro Facility:[facility] Start: 12-18-2023 End: 12-18-2023 Patient encounter procedure Cindy J Galea [facility] [employer] Start: 11-20-2023 End: 11-20-2023 ambulatory Zhao SEARS Facility:[facility] Start: 11-20-2023 End: 11-20-2023 Patient encounter procedure Zhao SEARS [facility] Start: 10-22-2023 End: 10-22-2023 ambulatory Zhao SEARS Facility:[facility] Start: 09-24-2023 End: 09-24-2023 ambulatory Zhao SEARS Facility:[facility] Start: 09-24-2023 End: 09-24-2023 Patient encounter procedure Zhao SEARS [facility] Start: 08-28-2023 End: 08-28-2023 Patient encounter procedure Zhao SEARS [facility] [employer] Start: 07-30-2023 End: 07-30-2023 Patient encounter procedure Zhao SEARS [facility] [employer] Start: 07-02-2023 End: 07-02-2023 Patient encounter procedure Zhao SEARS [facility] Start: 05-07-2023 End: 05-07-2023 Patient encounter procedure Zhao SEARS [facility] Start: 04-09-2023 End: 04-09-2023 Patient encounter procedure Zhao SEARS [facility] [employer] Start: 03-12-2023 End: 03-12-2023 Patient encounter procedure Zhao SEARS [facility] [employer] Start: 02-12-2023 End: 02-12-2023 Patient encounter procedure Zhao SEARS [facility] Start: 12-18-2022 End: 12-18-2022 Patient encounter procedure Zhao SEARS [facility] Start: 11-20-2022 End: 11-20-2022 Patient encounter procedure Zhao SEARS [facility] Start: 10-23-2022 End: 10-23-2022 Patient encounter procedure Zhao SEARS [facility] [employer] Start: 08-29-2022 End: 08-29-2022 Patient encounter procedure DEMETRIS TINEO [facility] [employer] Start: 07-31-2022 End: 07-31-2022 Patient encounter procedure Zhao R SEARS [facility] [employer] Start: 07-03-2022 End: 07-03-2022 Patient encounter procedure Zhao Barr SEARS [facility] [employer] Start: 06-05-2022 End: 06-05-2022 Patient encounter procedure Zhao R BELKYS [facility] [employer] Start: 05-08-2022 End: 05-08-2022 Patient encounter procedure Zhao R BELKYS [facility] [employer] Start: 04-10-2022 End: 04-10-2022 Patient encounter procedure Zhao Barr SEARS [facility] Start: 03-13-2022 End: 03-13-2022 Patient encounter procedure Zhao R SEARS [facility] [employer] Start: 02-13-2022 End: 02-13-2022 Patient encounter procedure Zhao R SEARS [facility] Start: 12-23-2021 End: 12-23-2021 Patient encounter procedure Pipe JAMA [facility] Start: 11-21-2021 End: 11-21-2021 Patient encounter procedure Zhao SEARS [facility] Start: 06-18-2021 End: 06-19-[address] ZHAO SEARS Facility:[facility] Plan of Treatment Date Care Activity Detail Author Start: 02-23-2025 Influenza vaccination Influenza Vacc ine (#1) [facility] Comment on above: Postponed from 04/27 (Patient Refused) Start: 07-16-2024 End: 07-16-2024 Patient encounter procedure 07/16/2024 4:20 PM EST [facility] [address] [place] [address] Carolee Mandel, EVAPORATOR HELPER [address] [place] [address] Arrived [facility] Comment on above: Arrived Start: 04-27-2024 Influenza vaccination Influenza Vacc ine (#1) [facility] Immunizations Immunization Date Immunization Notes Care Provider Fa cility 07-04-2021 SARS-CoV-2 mRNA (tozinameran 5y-11y) vaccine Zhao BELKYS [facility] 06-08-2021 SARS-CoV-2 (COVID-19 ) mRNA BNT-162b2 vax Zhao BELKYS [facility] 06-02-2021 SARS-CoV-2 mRNA (tozinameran 5y-11y) vaccine Zhao BELKYS [facility] 05-18-2021 SARS-CoV-2 (COVID-19 ) mRNA BNT-162b2 vax Zhao BELKYS [facility] 10-27-2020 tetanus and diphther ia toxoids, adsorbed, preservative free, for adult use (2 Lf of tetanus toxoid and 2 Lf of diphtheria toxoid) Zhao SEARS [facility] 04-05-2000 Td(adult) unspecifie d formulation Zhao SEARS [facility] 03-16-1994 measles, mumps and rubella virus vaccine Zhao SEARS [facility] 12-18-1985 diphtheria, tetanus toxoids and pertussis vaccine Carolee Lause EVAPORATOR HELPER Work Phone: [facility] 12-18-1985 tetanus toxoid, redu isabel diphtheria toxoid, and acellular pertussis vaccine, adsorbed Zhao SEARS [facility] 12-18-1985 trivalent poliovirus vaccine, live, oral Carolee Lause EVAPORATOR HELPER Work Phone: [facility] 06-09-1982 diphtheria, tetanus toxoids and pertussis vaccine Carolee Lause EVAPORATOR HELPER Work Phone: [facility] 06-09-1982 measles, mumps and rubella virus vaccine Zhao SEARS [facility] 06-09-1982 trivalent poliovirus vaccine, live, oral Carolee Lause EVAPORATOR HELPER Work Phone: [facility] 04-04-1982 diphtheria, tetanus toxoids and pertussis vaccine Carolee Lause EVAPORATOR HELPER Work Phone: [facility] 04-04-1982 trivalent poliovirus vaccine, live, oral Carolee Lause EVAPORATOR HELPER Work Phone: [facility] 1981 diphtheria, tetanus toxoids and pertussis vaccine Carolee Lause EVAPORATOR HELPER Work Phone: [facility] 1981 trivalent poliovirus vaccine, live, oral Carolee Lause EVAPORATOR HELPER Work Phone: [facility] Payers Date Payer Category Payer [facility] [id number] 2022 Unknown [id number] 1981 Unknown [id number] 2.16.840.1.354006.3.579. 2.593 1981 Unknown [id number] 2.16.840.1.616709.3.579. 2.1258 1981 Unknown [id number] 2.16.840.1.312473.3.579. 2.1258 1981 Unknown [id number] 2.16.840.1.705434.3.579. 2. 1981 Unknown [id number] 2.16.840.1.301629.3.579. 2. 1981 Unknown [id number] 2.16.840.1.457432.3.579. 2. 1981 Unknown [id number] 2.16.840.1.296407.3.579. 2. 1981 Unknown [id number] 2.16.840.1.230553.3.579. 2. 1981 Unknown [id number] 2.16.840.1.466911.3.579. 2. 1981 Unknown [id number] 2.16.840.1.367733.3.579. 2. 1981 Unknown [id number] 2.16.840.1.123313.3.579. 2. 1981 Unknown [id number] 2.16.840.1.328688.3.579. 2.727 1981 Unknown [id number] 2.16.840.1.488771.3.579. 2. 1981 Unknown [id number] 2.16.840.1.866461.3.579. 2. 1981 Unknown [id number] 2.16.840.1.734103.3.579. 2. 1981 Unknown [id number] 2.16.840.1.986400.3.579. 2. 1981 Unknown [id number] 2.16.840.1.808219.3.579. 2. 1981 Unknown [id number] 2.16.840.1.385452.3.579. 2. 1981 Unknown [id number] 2.16.840.1.231670.3.579. 2. 1981 Unknown [id number] 2.16.840.1.921535.3.579. 2.727 1959 Unknown [id number] Social History Date Type Detail Facility Start: 07-04-2021 End: 01-16-2022 Tobacco smoking status Ex-smoker (finding) [facility] Start: 05-17-2023 End: 07-16-2024 Sex Assigned At Male [facility] Start: 04-09-2023 End: 04-07-2024 Tobacco smoking status Never [facility] Start: 05-17-2023 [facility] Start: [...] 04-07-2024 Functional Status N/A [facility] 09-24-2023 Functional Status N/A [facility] 04-09-2023 Functional Status N/A [facility] 07-03-2022 Functional Status N/A [facility] Clinical Notes 07-03-2022 to 07-16-2024 Carolee Mandel, EVAPORATOR HELPER - 07/16/2024 4:20 PM EST Note Date & Type Note Facility 07-16-2024 History of Present illness Narrative Family Medicine Note Subjective: Chief Complaint: CIM HPI: Moreno Robin presents to the office today for chronic illness management follow up. He is due for lab work and would like to complete this at [facility] in [place]. He is also requesting medication refills which [...] for Wellness . documented in this encounter [facility] 04-07-2024 Hospital Discharge instructions Patient [...] therapy. Follow these instructions at home: Take mgyh-nyq-tuotkzt and prescription medicines only as told by [...] provider. Document Revised: 04/14/2021 Document Reviewed: 04/14/2021 GLSS Patient Education 2022 [employer]. Follow Up Care 11/20/2023 15:18:22 With:BELKYS HERNANDEZ, Zhao Barr, URL Address: [facility] [address] [place] [address]- When: Unknown [facility] 04-07-2024 Note Patient Education Urology Hypogonadism, [...] Follow these instructions at home: ? Take ztgd-ncp-wqwciov and prescription medicines only as told by [...] provider. Document Revised: (more content not included)... [facility] 09-24-2023 Hospital Discharge instructions Patient Education 09/24/2023 [...] therapy. Follow these instructions at home: Take sdlc-sjt-ajbwlzr and prescription medicines only as told by [...] provider. Document Revised: 04/14/2021 Document Reviewed: 04/14/2021 GLSS Patient Education 2022 [employer]join. Follow Up Care 04/09/2023 16:36:59 With:BELKYS HERNANDEZ, Zhao Barr, URL Address: [facility] [address] [place] [phone] When: Unknown Comments:6 mos w/ T level and PSA [facility] 04-09-2023 Hospital Discharge instructions Patient [...] therapy. Follow these instructions at home: Take dpmy-lxc-jmfywyq and prescription medicines only as told by [...] provider. Document Revised: 04/14/2021 Document Reviewed: 04/14/2021 GLSS Patient Education 2022 [employer]join. Follow Up Care 09/25/2022 15:36:45 With:BELKYS HERNANDEZ, Zhao Barr, URL Address: [facility] [address] [place] [phone] When:Within 6 Month(s) Comments:Testosterone level and CBC [facility] 07-03-2022 Hospital Discharge instructions Patient Education 07/03/2022 [...] Follow these instructions at home: Medicines Take maht-far-szymkee and prescription medicines only as told by [...] 08/10/2001 Document Revised: 07/26/2018 Document Reviewed: 08/29/2017 GLSS Patient Education 2020 [employer]. Follow Up Care 01/16/2022 16:42:22 With:BELKYS HERNANDEZ, Zhao Barr, URL Address: [facility] [address] , [place] [phone] When:12/31/2022 Comments:Testosterone levels. [facility] Evaluation + Plan note Future Appointments Appointment Date:11/22/2021 02:45:00 PM Scheduled Provider: Location:[facility] Appointment Type:URO Nurse Visit [facility] Evaluation + Plan note Future Appointments Appointment Date:01/16/2022 02:45:00 PM Scheduled Provider:[facility]hao SEARS [facility] Appointment Type:URO Office Visit Diagnostic Tests PendingTestosterone Level Total 12/23/21 [facility] Evaluation + Plan note Future Appointments Appointment Date:03/13/2022 02:45:00 PM Scheduled Provider: Location:[facility] Appointment Type:URO Nurse Visit Appointment Date:07/24/2022 02:45:00 PM Scheduled Provider:Zhao SEARS MD Location:[facility] Appointment Type:URO Office Visit [facility] Evaluation + Plan note Future Appointments Appointment Date:04/10/2022 03:00:00 PM Scheduled Provider: [facility] Appointment Type:URO Nurse Visit Appointment Date:07/24/2022 02:45:00 PM Scheduled Provider:Zhao SEARS MD [facility] Appointment Type:URO Office Visit [facility] Evaluation + Plan note Future Appointments Appointment Date:05/08/2022 02:30:00 PM Scheduled Provider: [facility] Appointment Type:URO Nurse Visit Appointment Date:07/24/2022 02:45:00 PM Scheduled Provider:Zhao SEARS MD [facility] Appointment Type:URO Office Visit [facility] Evaluation + Plan note Future Appointments Appointment Date:06/05/2022 02:30:00 PM Scheduled Provider: Location:[facility] Wing Appointment Type:URO Nurse Visit Appointment Date:07/24/2022 02:45:00 PM Scheduled Provider:Zhao SEARS MD Location:[facility] Wing Appointment Type:URO Office Visit [facility] Evaluation + Plan note Future Appointments Appointment Date:07/03/2022 03:00:00 PM Scheduled Provider:Zhao SEARS MD Location:[facility] Appointment Type:URO Office Visit Diagnostic Tests PendingTestosterone Level Total 06/05/22 [facility] Evaluation + Plan note Future Appointments Appointment Date:07/31/2022 03:00:00 PM Scheduled Provider: Location:[facility] Appointment Type:URO Nurse Visit [facility] Evaluation + Plan note Future Appointments Appointment Date:08/29/2022 03:00:00 PM Scheduled Provider: Location:[facility] Appointment Type:URO Nurse Visit [facility] Evaluation + Plan note Future Appointments Appointment Date:09/25/2022 03:00:00 PM Scheduled Provider: Location:[facility] Appointment Type:URO Nurse Visit [facility] Evaluation + Plan note Future Appointments Appointment Date:11/20/2022 03:00:00 PM Scheduled Provider: Location:[facility] Appointment Type:URO Nurse Visit Appointment Date:03/26/2023 03:15:00 PM Scheduled Provider:[facility]ARS [facility] Type:[facility]O Office Visit [facility] Evaluation + Plan note Future Appointments Appointment Date:12/18/2022 03:00:00 PM Scheduled Provider: [facility] Appointment Type:URO Nurse Visit Appointment Date:03/26/2023 03:15:00 PM Scheduled Provider:Zhao SEARS MD Location:[facility] Wing Appointment Type:URO Office Visit [facility] Evaluation + Plan note Future Appointments Appointment Date:2023 02:45:00 PM Scheduled Provider: Location:[facility] Wing Appointment Type:URO Nurse Visit Appointment Date:03/26/2023 03:15:00 PM Scheduled Provider:Zhao SEARS MD Location:[facility] Appointment Type:URO Office Visit [facility] Evaluation + Plan note Future Appointments Appointment Date:03/12/2023 03:00:00 PM Scheduled Provider: Location:[facility] Appointment Type:URO Nurse Visit Appointment Date:04/09/2023 03:45:00 PM Scheduled Provider:Zhao SEARS MD [facility] App[facility] Type:URO Office Visit [facility] Evaluation + Plan note Future Appointments Appointment Date:04/09/2023 03:45:00 PM Scheduled Provider:Zhao SEARS MD [facility] Appointment Type:URO Office Visit Diagnostic Tests PendingCBC w/ Auto Diff 03/12/23Testosterone Level Total 03/12/23 [facility] Evaluation + Plan note Future Appointments Appointment Date:05/07/2023 03:00:00 PM Scheduled Provider: Location:[facility] Appointment Type:URO Nurse Visit Appointment Date:09/24/2023 02:45:00 PM Scheduled Provider:Zhao SEARS MD [facility] Appointment Type:URO Office Visit Diagnostic Tests PendingCBC w/ Auto Diff 04/09/23Testosterone Level Total 04/09/23 [facility] Evaluation + Plan note Future Appointments Appointment Date:06/04/2023 03:00:00 PM Scheduled Provider: Location:[facility] Appointment Type:URO Nurse Visit Appointment Date:09/24/2023 02:45:00 PM Scheduled Provider:[facility]ARS MD [facility] Type:[facility]O Office Visit [facility] Evaluation + Plan note Future Appointments Appointment Date:07/30/2023 02:45:00 PM Scheduled Provider: [facility] Appointment Type:URO Nurse Visit Appointment Date:08/28/2023 03:00:00 PM Scheduled Provider: [facility] Appointment Type:URO Nurse Visit Appointment Date:09/24/2023 10:45:00 AM Scheduled Provider:Zhao SEARS MD Location:[facility] Wing Appointment Type:URO Office Visit [facility] Evaluation + Plan note Future Appointments Appointment Date:08/28/2023 03:00:00 PM Scheduled Provider: [facility] Appointment Type:URO Nurse Visit Appointment Date:09/24/2023 10:45:00 AM Scheduled Provider:Zhao SEARS MD [facility] Appointment Type:URO Office Visit [facility] Evaluation + Plan note Future Appointments Appointment Date:09/24/2023 10:45:00 AM Scheduled Provider:Zhao SEARS MD Location:[facility] Appointment Type:URO Office Visit [facility] Evaluation + Plan note Future Appointments Appointment Date:10/22/2023 10:30:00 AM Scheduled Provider: Location:[facility] Appointment Type:URO Nurse Visit Diagnostic Tests PendingPSA Screen, Total 09/24/23Testosterone Level Total 09/24/23 [facility] Evaluation + Plan note Future Appointments Appointment Date:12/18/2023 03:00:00 PM Scheduled Provider: [facility] Appointment Type:URO Nurse Visit Appointment Date:03/10/2024 09:30:00 AM Scheduled Provider:Zhao SEARS MD Location:[facility] Wing Appointment Type:URO Office Visit [facility] Evaluation + Plan note Future Appointments Appointment Date:2024 03:00:00 PM Scheduled Provider: Location:[facility] Wing Appointment Type:URO Nurse Visit Appointment Date:03/10/2024 09:30:00 AM Scheduled Provider:Zhao SEARS MD [facility] Appointment Type:URO Office Visit [facility] Evaluation + Plan note Future Appointments Appointment Date:02/12/2024 03:00:00 PM Scheduled Provider: Location:[facility] Wing Appointment Type:URO Nurse Visit Appointment Date:03/10/2024 09:30:00 AM Scheduled Provider:Zhao SEARS MD Location:[facility] Wing Appointment Type:URO Office Visit [facility] Evaluation + Plan note Future Appointments Appointment Date:03/10/2024 09:30:00 AM Scheduled Provider:Zhao SEARS MD Location:[facility] Wing Appointment Type:URO Office Visit [facility] Evaluation + Plan note Future Appointments Appointment Date:04/07/2024 11:45:00 AM Scheduled Provider:Zhao SEARS MD Location:[facility] Wing Appointment Type:URO Office Visit [facility] Evaluation + Plan note Future Appointments Appointment Date:05/06/2024 02:30:00 PM Scheduled Provider: Location:[facility] Wing Appointment Type:URO Nurse Visit Appointment Date:06/03/2024 02:30:00 PM Scheduled Provider: Location:[facility] Wing Appointment Type:URO Nurse Visit Appointment Date:07/01/2024 02:30:00 PM Scheduled Provider: Location:[facility] Wing Appointment Type:URO Nurse Visit Appointment Date:07/29/2024 02:30:00 PM Scheduled Provider: Location:[facility] Wing Appointment Type:URO Nurse Visit Appointment Date:08/26/2024 09:00:00 AM Scheduled Provider: Location:[facility] Appointment Type:URO Nurse Visit Appointment Date:09/23/2024 02:30:00 PM Scheduled Provider: Location:[facility] Wing Appointment Type:URO Nurse Visit Appointment Date:10/20/2024 11:30:00 AM Scheduled Provider:Zhao SEARS MD Location:[facility] Wing Appointment Type:URO Office Visit Diagnostic Tests PendingTestosterone Level Total 04/07/24 [facility] Evaluation + Plan note Future Appointments Appointment Date:06/03/2024 02:30:00 PM Scheduled Provider: Location:[facility] Wing Appointment Type:URO Nurse Visit Appointment Date:07/01/2024 02:30:00 PM Scheduled Provider: Location:[facility] Wing Appointment Type:URO Nurse Visit Appointment Date:07/29/2024 02:30:00 PM Scheduled Provider: Location:[facility] Wing Appointment Type:URO Nurse Visit Appointment Date:08/26/2024 09:00:00 AM Scheduled Provider: Location:[facility] Wing Appointment Type:URO Nurse Visit Appointment Date:09/22/2024 03:15:00 PM Scheduled Provider:Zhao SEARS MD [facility] Appointment Type:URO Office Visit [facility] Evaluation + Plan note Future Appointments Appointment Date:07/01/2024 02:30:00 PM Scheduled Provider: Location:[facility] Wing Appointment Type:URO Nurse Visit Appointment Date:07/29/2024 02:30:00 PM Scheduled Provider: Location:[facility] Appointment Type:URO Nurse Visit Appointment Date:08/26/2024 09:00:00 AM Scheduled Provider: Location:[facility] Wing Appointment Type:URO Nurse Visit Appointment Date:09/22/2024 03:15:00 PM Scheduled Provider:Zhao SEARS MD Location:[facility] Wing Appointment Type:URO Office Visit [facility] Evaluation + Plan note Future Appointments Appointment Date:07/29/2024 02:30:00 PM Scheduled Provider: Location:[facility] Appointment Type:URO Nurse Visit Appointment Date:08/26/2024 09:00:00 AM Scheduled Provider: Location:[facility] Wing Appointment Type:URO Nurse Visit Appointment Date:09/22/2024 02:30:00 PM Scheduled Provider[facility] Type:[facility]O Nurse Visit Appointment Date:10/20/2024 03:00:00 PM Scheduled Provider:Zhao SEARS MD [facility] Appoint[facility] Type:URO Office Visit [facility] Evaluation + Plan note Future Appointments Appointment Date:08/26/2024 09:00:00 AM Scheduled Provider: [facility] Appointment Type:URO Nurse Visit Appointment Date:09/22/2024 02:30:00 PM Scheduled Provider: Location:[facility] Appointment Type:URO Nurse Visit Appointment Date:10/17/2024 11:15:00 AM Scheduled Provider:Zhao SEARS MD [facility] Appointment Type:URO Office Visit [facility] Evaluation + Plan note Future Appointments Appointment Date:09/22/2024 02:30:00 PM Scheduled Provider: Location:[facility] Appointment Type:URO Nurse Visit Appointment Date:10/17/2024 11:15:00 AM Scheduled Provider:Zhao SEARS MD [facility] Appointment Type:URO Office Visit [facility] Evaluation + Plan note Future Appointments Appointment Date:10/17/2024 11:15:00 AM Scheduled Provider:Zhao SEARS MD [facility] Appointment Type:URO Office Visit [facility] Evaluation note Diagnosis Primary hypertension (CMS/HCC) Unspecified essential hypertension documented in [facility] Narrative No data available for this section [facility] Discharge instructions No data available for this section [facility] progress note No data available for this section [facility] Summary Purpose Family History No Family History [...] DATE CREATED AUTHOR AUTHOR'S ORGANIZ ATION 01/08/2022 [facility] dical Specialist DATE CREATED AUTHOR AUTHOR'S ORGANIZ ATION 07/19/2024 [facility] dical Specialists EPIC DATE CREATED AUTHOR AUTHOR'S ORGANIZ ATION 09/23/2024 [facility] (unrecognized sect ion and content) Personnel Name: CAROLEE MANDEL Legislators Relationship Specialty Start Date End Date Bear Figueredo MD [address] [place] [address] PCP - General Family Medicine 01/02/23 Corrine Brooks NP [address] [place] [address] Nurse Practitioner Family Medicine 01/11/24 Carolee Mandel NP [address] [place] [address] Nurse Practitioner Family Medicine 01/11/24 Legislators Relationship Specialty Start Date End Date Bear Figueredo MD [address] [place] [address] PCP - General Family Medicine 01/02/23 Corrine Brooks NP [address] [place] [address] Nurse Practitioner Family Medicine 01/11/24 Carolee Mandel NP [address] [place] [address] Nurse Practitioner [facility] 01/11/24 FOR RECORDS PERTAINING TO PATIENTS WHO [...] BE BASED ON THE PRIMARY CLINICAL RECORDS. [facility] provides no warranty or guarantee of the accuracy or completeness of information in this document.
[2024-10-06 08:45] LABS: Basophils Percent Auto 0.6 % (0.2-2.0); Eosinophils Absolute Auto 0.1 10^3/uL (0.0-0.7); Eosinophils Percent Auto 1.5 % (0.9-7.0); Hematocrit 45.8 % (42.0-54.0); Hemoglobin 16.4 g/dL (14.0-18.0); Lymphocytes Absolute Auto 2.2 10^3/uL (1.2-3.8); Lymphocytes Percent Auto 40.5 % (20.5-60.0); Mean Corpuscular HGB Conc 35.8 g/dL (29.9-35.2); Mean Corpuscular Hemoglobin 28.1 pg (25.9-34.0); Mean Corpuscular Volume 78.6 fL (80.0-94.0); Mean Platelet Volume 11.5 fL (9.5-13.5); Monocytes Absolute Auto 0.5 10^3/uL (0.3-0.8); Monocytes Percent Auto 9.1 % (1.7-12.0); Neutrophils Absolute Auto 2.6 10^3/uL (1.4-6.5); Neutrophils Percent Auto 48.3 % (43.0-75.0); Platelet Count 229 10^3/uL (150-450); Red Blood Count 5.83 10^6/uL (4.70-6.10); Red Cell Distribution Width 15.6 % (11.0-15.0); White Blood Count 5.4 10^3/uL (4.0-11.0)
[2024-10-06 10:12] LABS: Sodium 142 mmol/L (136-145)
[2024-10-06 10:13] LABS: Chloride 104 mmol/L (98-107); Potassium 4.2 mmol/L (3.5-5.1)
[2024-10-06 10:15] LABS: Anion Gap 11.9; Carbon Dioxide 30.3 mmol/L (21.0-32.0)
[2024-10-06 10:16] LABS: Aspartate Amino Transferase 23 U/L (15-37); BUN Creatinine Ratio 8.2; Bilirubin Total 0.4 mg/dL (0.2-1.0); Calcium 8.9 mg/dL (8.5-10.1); Estimated GFR (African America >60 (>=60 mL/min/1.73m^2); Estimated GFR (Non-African Ame >60 (>=60 mL/min/1.73m^2); Glucose 91 mg/dL (74-106)
[2024-10-06 10:17] LABS: Alanine Aminotransferase 60 U/L (16-63); Albumin Globulin Ratio 1.3; Albumin Level 4.1 g/dL (3.4-5.0); Alkaline Phosphatase 55 U/L (46-116); Chol HDL Ratio 3.6; Cholesterol 188 mg/dL (<=200); Globulin 3.2 g/dL; HDL Cholesterol 52 mg/dL (40-60); Thyroid Stimulating Hormone 1.078 uIU/mL (0.358-3.740); Total Protein 7.3 g/dL (6.4-8.2); Triglycerides 40 mg/dL (<=150)
[2024-10-07 08:15] LABS: Vitamin B12 366 pg/mL (232-1245)
== END 2024-10-06 08:25 | disposition home or self-care (01) ==
LOC: LAB 08:25
PROVIDERS: PCP Nurse Practitioner; Visit Provider Nurse Practitioner
DX: Z00.00 Encounter for general adult medical examination without abnormal findings (principal); Z13.21 Encounter for screening for nutritional disorder; R53.83 Other fatigue; Z13.29 Encounter for screening for other suspected endocrine disorder; E29.1 Testicular hypofunction; I10 Essential (primary) hypertension; Z13.220 Encounter for screening for lipoid disorders; E66.01 Morbid (severe) obesity due to excess calories
CPT/HCPCS: 36415; 80053; 80061; 82306; 82607; 84403; 84439; 84443; 85025